=== PATIENT | male | born 1955 | race Caucasian/White ===

== ENCOUNTER → 2019-11-16 12:52 | Outpatient (CLI) | payer OTHER, SELFPAY ==
--- NOTE | ~2019-11-16 | XR_ITS ---
XR hip RT min 2V DATE: 11/16/2019 13:14 INDICATION: Kicked by a horse. Lateral right hip pain. TECHNIQUE: AP and lateral views COMPARISON: None FINDINGS: No fracture or dislocation, avascular necrosis or bone destruction. Right hip joint space is preserved. Multiple prostate calcifications. Indeterminate calcifications are noted medial to the right kidney. Levoscoliosis and degenerative change of lumbar spine. IMPRESSION: No significant right hip abnormality Reviewed, dictated and finalized at location B.
== END ==
PROVIDERS: PCP Emergency Medicine; Visit Provider Emergency Medicine
DX: S79.811A Other specified injuries of right hip, initial encounter (principal)
CPT/HCPCS: 73502

== ENCOUNTER 2019-12-19 10:27 | Emergency (ER) | payer OTHER, SELFPAY ==
[2019-12-19 10:53] VITALS: BP 103/69; PULSE 66; RESP 16; TEMP 36.4; O2SAT 98
--- NOTE | 2019-12-19 11:00 | ED.DENTAL ---
HPI - Dental/Oral General Chief complaint: Dental/Oral Stated complaint: TOOTH PAIN Time Seen by Provider: 12/19/19 11:00 Source: patient Mode of arrival: ambulatory Limitations: no limitations History of Present Illness HPI Narrative: Scott Coronado is a 64 yo male with PMH of rheumatoid arthritis, GERD ,who comes to express care with left upper dental pain in tooth 14. This is broken off and is waiting for the insurance company [employer] to call back with an oral surgeon that will take their insurance. Patient is got has multiple other teeth is been pulled or broken off, his primary care physician given amoxicillin 875 twice daily for the last time tooth is broken and he would like the same antibiotic Related Data Home Medications Medication Instructions Recorded Confirmed meloxicam 15 mg DAILY 12/19/19 12/19/19 methotrexate sodium 2.5 mg DAILY 12/19/19 12/19/19 omeprazole 20 mg DAILY 12/19/19 12/19/19 prednisone 2.5 mg DAILY 12/19/19 12/19/19 Allergies Allergy/AdvReac Type Severity Reaction Status Date / Time No Known Allergies Allergy Verified 12/19/19 10:58 Review of Systems Review of Systems: Narrative: CONSTITUTIONAL: Denies fever, chills, sweats. EYES: Denies visual changes, redness, discharge. ENT: Denies rhinorrhea, congestion, sore throat, otalgia. Multiple broken teeth with abscess tooth 14 upper left CARDIOVASCULAR: Denies chest pain, palpitations, edema. RESPIRATORY: Denies dyspnea, wheezing, cough GASTROINTESTINAL: Denies abdominal pain, nausea, vomiting, diarrhea. GENITOURINARY: Denies dysuria, hematuria, abnormal discharge SKIN: Denies rash or itching. NEUROLOGIC: Denies numbness, or focal weakness. PSYCHIATRIC: Denies anxiety or depression. [facility] Past Medical History Medical History (Updated 12/19/19 @ 11:10 by Usha Moon CNP) GERD (gastroesophageal reflux disease) Rheumatoid arthritis Family History Family History (Updated 12/19/19 @ 11:06 by Usha Moon CNP) Other Rheumatoid arthritis Social History Social History (Updated 12/19/19 @ 11:07 by Usha Moon CNP) Smoking status: Current every day smoker Alcohol intake: current Gender identity (if verbalized by the patient): Male Comments At time of signature, I agree with nursing past medical, surgical, social and family history. There is no relevant family history pertinent to the presenting complaint. Exam Narrative: Exam Narrative: GENERAL: This is a well-nourished, well-developed patient, in moderate distress. HEAD: normocephalic, atraumatic. EYES: Sclera clear/white. Vision is grossly intact. EARS: External ears normal, . Hearing grossly intact. NOSE: External nose normal without nasal discharge, nares without redness, no rhinorrhea. Tooth pain left upper left with multiple broken teeth poor dentition THROAT: Mucous membranes moist, NECK: Neck supple, CARDIOVASCULAR: Regular rate and rhythm without murmurs, gallops, or rubs. RESPIRATORY: Clear to auscultation. Breath sounds equal bilaterally. No wheezes, rales, or rhonchi. GASTROINTESTINAL: Abdomen soft, SKIN: warm, intact with no suspicious lesions or rash, good texture and turgor. NEURO: awake, alert, and oriented to person, place and time. There were no obvious focal neurologic abnormalities. Steady gait EXTREMITIES: Normal range of motion. BACK: Nontender without deformity Course Course Emergency Course: Started on amoxicillin 875 twice daily at patient request Tylenol 3 for pain Follow-up with melena to get oral surgeon referral for removal of abscessed tooth and other teeth that are fractured towards the gumline Vital Signs Vital signs: Vital Signs Temperature 97.6 F 12/19/19 10:53 Pulse Rate 66 12/19/19 10:53 Respiratory Rate 16 12/19/19 10:53 Blood Pressure 103/69 12/19/19 10:53 Pulse Oximetry 98 12/19/19 10:53 Temperature 97.6 F 12/19/19 10:53 Pulse Rate 66 12/19/19 10:53 Respiratory Rate 16 12/19/19
== END 2019-12-19 11:18 | disposition home or self-care (01) ==
PROVIDERS: Emergency Provider Nurse Practitioner; PCP Emergency Medicine
DX: K04.7 Periapical abscess without sinus (principal); F17.200 Nicotine dependence, unspecified, uncomplicated; K21.9 Gastro-esophageal reflux disease without esophagitis; M06.9 Rheumatoid arthritis, unspecified
CPT/HCPCS: 99213; G0463

== ENCOUNTER → 2020-02-09 14:03 | Outpatient (CLI) | payer OTHER, SELFPAY ==
--- NOTE | ~2020-02-09 | XR_ITS ---
XR shoulder RT min 2V DATE: 02/09/2020 14:23 INDICATION: Right shoulder pain TECHNIQUE: 4 views COMPARISON: 09/24/2016 right shoulder FINDINGS: There is right rotator cuff atrophy. There is mild degenerative change at the, clavicular and glenohumeral joints. Moderate osteopenia. No fracture, dislocation, periosteal reaction or bone destruction or any significant abnormal soft ti ssue calcification of the right shoulder is detected. IMPRESSION: Right rotator cuff atrophy Mild degenerative change at the acromioclavicular and glenohumeral joints Diffuse osteopenia Reviewed, dictated and finalized at location A.
== END ==
PROVIDERS: PCP Emergency Medicine; Visit Provider Emergency Medicine
DX: M25.511 Pain in right shoulder (principal); M62.511 Muscle wasting and atrophy, not elsewhere classified, right shoulder; M85.89 Other specified disorders of bone density and structure, multiple sites
CPT/HCPCS: 73030

== ENCOUNTER 2020-03-16 16:20 | Emergency (ER) | payer OTHER, SELFPAY ==
[2020-03-16 16:30] VITALS: BP 114/66; PULSE 66; RESP 16; TEMP 36.6; O2SAT 97
--- NOTE | 2020-03-16 16:36 | ED.SKABFB ---
HPI - Skin/Abscess/Foreign Bdy General Chief complaint: Wound/Laceration Stated complaint: Dog Bite Time Seen by Provider: 03/16/20 16:50 Source: patient and RN notes reviewed Mode of arrival: ambulatory Limitations: no limitations History of Present Illness HPI narrative: 64-year-old male presents concern for dog bite to his left forearm. Reports the dog was known to him and is up-to-date on his vaccination. Reports he is not up-to-date on his vaccinations. Reports he cleaned the wounds after he was bit. Denies any decreased strength, range of motion, sensation in his arm or hand. MD complaint: other (Dogbite) Related Data Home Medications Medication Instructions Recorded Confirmed meloxicam 15 mg DAILY 12/19/19 12/19/19 methotrexate sodium 2.5 mg DAILY 12/19/19 12/19/19 omeprazole 20 mg DAILY 12/19/19 12/19/19 alendronate mg PO 03/16/20 ergocalciferol (vitamin D2) 03/16/20 leflunomide mg 03/16/20 Allergies Allergy/AdvReac Type Severity Reaction Status Date / Time No Known Allergies Allergy Verified 12/19/19 10:58 Review of Systems Review of Systems: Narrative: CONSTITUTIONAL: Denies malaise, chills, sweats, or fever. CARDIOVASCULAR: Denies chest pain, palpitations, or edema. RESPIRATORY: Denies cough or dyspnea. SKIN: Reports dog bites to left arm MUSCULOSKELETAL: Denies muscle skeletal pain NEUROLOGIC: Denies numbness, weakness All systems reviewed & are unremarkable except as noted in HPI and below PMFSH Past Medical History Medical History (Updated 03/16/20 @ 17:14 by Coby Garza NP) GERD (gastroesophageal reflux disease) Rheumatoid arthritis Family History Family History (Updated 12/19/19 @ 11:06 by Usha Moon CNP) Other Rheumatoid arthritis Social History Social History (Updated 12/19/19 @ 11:07 by Usha Moon CNP) Smoking status: Current every day smoker Alcohol intake: current Gender identity (if verbalized by the patient): Male Comments At time of signature, agree with nursing past medical, surgical, social and family history. There is no relevant family history pertinent to the presenting complaint Exam Narrative: Exam Narrative: GENERAL: Well-appearing, well-nourished, and in no acute distress. HEAD: Normocephalic, atraumatic. EYES: PERRLA, conjunctivae clear ENT: Nares clear. Mucous membranes moist. NECK: Supple. CHEST: No respiratory distress. Speaks in full sentences. HEART: Regular rate and rhythm. Normal LUE peripheral pulse. EXTREMITIES: Left arm, hand, wrist hand and digits of hand have normal strength and sensation. 5/5 strength with digit flexion, extension. Range of motion normal. No clubbing, cyanosis, or edema noted. No tenderness. Normal digital cascade with flexion of fingers, median, ulnar and radial nerve intact. Normal sensation of each side of finger. SKIN: Warm, dry. 8 superficial puncture wounds, 7 superficial skin tears noted to the medial lateral left forearm. None gaping, none surrounded by erythema, induration, edema, no drainage NEURO: Alert and oriented x3 PSYCH: Normal mood and affect Course Course Emergency Course: Steri-Strips applied to larger skin tears and puncture wounds in a sterile fashion Patient is aware of diagnosis, understands and agrees to treatment plan. Anticipatory guidance given. Patient agrees to follow-up as directed and is aware of reasons to seek care at the emergency department. Portions of this record may have been created with voice recognition software Vital Signs Vital signs: Vital Signs Temperature 97.9 F 03/16/20 16:30 Pulse Rate 66 03/16/20 16:30 Respiratory Rate 16 03/16/20 16:30 Blood Pressure 114/66 03/16/20 16:30 Pulse Oximetry 97 03/16/20 16:30 Temperature 97.9 F 03/16/20 16:47 Pulse Rate 66 03/16/20 16:47 Respiratory Rate 16 03/16/20 16:47 Blood Pressure 114/66 03/16/20 16:47 Pulse Oximetry 97 03/16/20 16:47 Reviewed. MDM - Skin/Abscess/Foreig
[2020-03-16 16:47] VITALS: BP 114/66; PULSE 66; RESP 16; TEMP 36.6; O2SAT 97
[2020-03-16] MEDS: TETANUS,DIPHTHERIA,AC PERTUSSIS ADULT (0.5 ML) BOOSTRIX IM (17:07)
== END 2020-03-16 17:26 | disposition home or self-care (01) ==
PROVIDERS: Emergency Provider Nurse Practitioner; PCP Emergency Medicine
DX: S51.812A Laceration without foreign body of left forearm, initial encounter (principal); W54.0XXA Bitten by dog, initial encounter; S51.832A Puncture wound without foreign body of left forearm, initial encounter; Z23 Encounter for immunization; F17.200 Nicotine dependence, unspecified, uncomplicated; M06.9 Rheumatoid arthritis, unspecified; K21.9 Gastro-esophageal reflux disease without esophagitis
CPT/HCPCS: 90471; 90715; 99212; G0463

== ENCOUNTER → 2021-01-19 12:50 | Outpatient (CLI) | payer OTHER, SELFPAY ==
--- NOTE | ~2021-01-19 | XR_ITS ---
EXAMINATION: XR lumbar spine 2-3V DATE: 01/19/2021 13:06 INDICATION: Low back pain. TECHNIQUE: 3 views of lumbar spine were obtained. COMPARISON: None. FINDINGS: There is 6 degrees levocurvature of lumbar spine. There is a 10 mm anterolisthesis of L4 on L5. There is mild chronic anterior wedging of L2 vertebral body. There is severely decreased disc he ight at L4-L5 and mildly decreased disc height at L2-L3. There are chronic bilateral L4 pars defects. There is severe facet joint osteoarthritis in lower lumbar spine. IMPRESSION: 1. Chronic bilateral L4 pars defects with grade 1 anterolisthesis of L4 on L5. 2. Severe lumbar spondylosis. Reviewed, dictated and finalized at location A.
== END ==
PROVIDERS: PCP Emergency Medicine; Visit Provider Emergency Medicine
DX: M54.59 Other low back pain (principal); M43.16 Spondylolisthesis, lumbar region; M47.816 Spondylosis without myelopathy or radiculopathy, lumbar region; M53.86 Other specified dorsopathies, lumbar region
CPT/HCPCS: 72100

== ENCOUNTER 2021-04-06 12:15 | Emergency (ER) | payer OTHER, SELFPAY | END 2021-04-06 13:15 | disposition left against medical advice (07) | PROVIDERS: Emergency Provider Internal Medicine Hematology & Oncology; PCP Emergency Medicine | DX: Z53.21 Procedure and treatment not carried out due to patient leaving prior to being seen by health care provider (principal) | CPT/HCPCS: 99199 ==

== ENCOUNTER 2021-04-06 13:48 | Emergency (ER) | payer OTHER, SELFPAY ==
[2021-04-06 14:04] VITALS: BP 128/86; PULSE 87; RESP 16; TEMP 36.3; O2SAT 97
--- NOTE | 2021-04-06 14:36 | ED.BACK ---
HPI - Back Pain/Injury General Chief Complaint: Extremity Injury, Upper Stated Complaint: rt shoulder pain Time Seen by Provider: 04/06/21 14:23 Source: patient and RN notes reviewed Mode of arrival: ambulatory Limitations: no limitations History of Present Illness HPI Narrative: Patient presents today complaining of right upper back pain x8 days. 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 Currently rates pain 10/10. He was seen today by his PCP who sent him to us to be evaluated for possible punctured lung or pneumonia. . Patient has not been ill, has no cough, no fever, no short of breath, has had no traumatic injury or fall. Pain increases with movement and deep breaths. He believes he just needs a muscle relaxer. 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 MD elicited complaint: back pain Related Data Home Medications Medication Instructions Recorded Confirmed meloxicam 15 mg PO DAILY 12/19/19 04/06/21 methotrexate sodium 2.5 mg PO DAILY 12/19/19 04/06/21 omeprazole 20 mg PO DAILY 12/19/19 04/06/21 alendronate 70 mg PO DAILY 03/16/20 04/06/21 ergocalciferol (vitamin D2) 1,250 mcg PO DAILY 03/16/20 04/06/21 leflunomide 10 mg PO DAILY 03/16/20 04/06/21 prednisone 2.5 mg PO DAILY 03/16/20 04/06/21 clotrimazole 1 applic TOPICAL DAILY 04/06/21 04/06/21 folic acid 1 mg PO DAILY 04/06/21 04/06/21 Allergies Allergy/AdvReac Type Severity Reaction Status Date / Time No Known Allergies Allergy Verified 04/06/21 14:34 Review of Systems Review of Systems: CONSTITUTIONAL: Denies body aches, fever, chills, or sweats. EYES: Denies visual changes, redness, or discharge. ENT: Denies rhinorrhea, congestion, sore throat, or otalgia. CARDIOVASCULAR: Denies chest pain, palpitations, or edema. RESPIRATORY: Denies cough or dyspnea. GASTROINTESTINAL: Denies abdominal pain, nausea, vomiting, or diarrhea. GENITOURINARY: Denies dysuria or hematuria. SKIN: Denies rash, itching, or wounds. MUSCULOSKELETAL: Denies joint pain, or myalgia.+ Back pain NEUROLOGIC: Denies headache, numbness, tingling, or weakness. PSYCH: Denies depression or anxiety. [facility] Past Medical History Medical History GERD (gastroesophageal reflux disease) Rheumatoid arthritis Family History Family History Other Rheumatoid arthritis Social History Social History Smoking status: Current every day smoker Alcohol intake: current Gender identity (if verbalized by the patient): Male Comments At time of signature, I have reviewed and agree with nursing past medical, surgical, social and family history unless otherwise noted. Please see nursing chart for further information. There is no relevant family history pertinent to the presenting complaint Exam Narrative: GENERAL: Well-appearing, well-nourished, and in no acute distress. HEAD: Normocephalic, atraumatic. EYES: EOMI. No redness or drainage. Conjunctivae normal. ENT: Mucous membranes pink and moist. NECK: Normal AROM. CHEST: No respiratory distress. MUSCULOSKELETAL: No bony tenderness of the spine. Right upper thoracic paraspinal muscle tenderness, just medial to the scapula. Pain increases with movement of the right shoulder and arm. Distal sensation intact. Capillary refill normal. Radial pulse normal. Normal strength in the right arm and shoulder. EXTREMITIES: Normal range of motion. No edema. SKIN: Warm, dry, no rash. Capillary refill normal. Normal skin turgor. NEURO: No focal deficits. Alert and oriented x3. Gait steady. PSYCH: Normal affect. No signs of depression or anxiety. Course Vital Signs Vital signs: Vital Signs Temperature 97.3 F L 04/06/21 14:04 Pulse Rate 87 04/06/21 14:04 Respiratory Rate 16 04/06/21 14:04 Blood P
== END 2021-04-06 14:45 | disposition home or self-care (01) ==
PROVIDERS: Emergency Provider Nurse Practitioner; PCP Emergency Medicine
DX: S29.012A Strain of muscle and tendon of back wall of thorax, initial encounter (principal); W55.19XA Other contact with horse, initial encounter; K21.9 Gastro-esophageal reflux disease without esophagitis; M06.9 Rheumatoid arthritis, unspecified
CPT/HCPCS: 99213; G0463

== ENCOUNTER 2021-08-10 11:14 | Emergency (ER) | payer OTHER, SELFPAY ==
--- NOTE | 2021-08-10 11:15 | ED.UPPEXIN ---
HPI - Extremity Injury (Upper) General Chief Complaint: Extremity Problem,Nontraumatic Stated Complaint: left 3rd finger pain Time Seen by Provider: 08/10/21 11:15 Source: patient Mode of arrival: ambulatory Limitations: no limitations History of Present Illness HPI narrative: Mr. Burton is a 66-year-old male patient presenting to the clinic today with complaints of left fourth finger pain 2 to 3 days. 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 He has a history of rheumatoid arthritis and is on prednisone and methotrexate for this. Thinks he may have been bitten by a insect. Related Data Home Medications Medication Instructions Recorded Confirmed meloxicam 15 mg PO DAILY 12/19/19 08/10/21 methotrexate sodium 2.5 mg PO DAILY 12/19/19 08/10/21 omeprazole 20 mg PO DAILY 12/19/19 08/10/21 alendronate 70 mg PO DAILY 03/16/20 08/10/21 ergocalciferol (vitamin D2) 1,250 mcg PO DAILY 03/16/20 08/10/21 leflunomide 10 mg PO DAILY 03/16/20 08/10/21 prednisone 2.5 mg PO DAILY 03/16/20 08/10/21 folic acid 1 mg PO DAILY 04/06/21 08/10/21 Allergies Allergy/AdvReac Type Severity Reaction Status Date / Time No Known Allergies Allergy Verified 08/10/21 11:32 Review of Systems Review of Systems: Pertinent positives per HPI. Patient denies any fever, chills, rash, headache, visual changes, dizziness, cough, runny nose, sore throat, shortness of breath, chest pain, palpitations, nausea, vomiting, diarrhea, constipation, abdominal pain, or any urinary issues. [facility] Past Medical History Medical History GERD (gastroesophageal reflux disease) Rheumatoid arthritis Family History Family History Other Rheumatoid arthritis Social History Social History Smoking status: Current every day smoker Alcohol intake: current Gender identity (if verbalized by the patient): Male Comments At the time of my signature, I reviewed and agree with the nursing past medical, surgical, social, and family history. There is no relevant family history pertinent to the patient complaint. Exam Narrative: General: Well-developed, well nourished, in no apparent distress Head: Normocephalic, atraumatic. Cardio: Regular rate and rhythm, s1 and s2 normal, no murmur appreciated. Resp: Clear to auscultation bilaterally, no rhonchi, rales, wheezing or rubs. Musculoskeletal: [place]-neck deformity of fingers, swelling and mild redness to the left fourth finger joint with a fluctuant knot over the medial joint, tender to palpation over the MIP joint pain is radiating down his lateral hand, limited range of motion of the right fourth finger MIP joint, peripheral pulse strong, , no cyanosis, normal gait and station Course Course Emergency Course: Portions of this record may have been created with voice recognition software. Level of Care: Express Care Visit Vital Signs Vital signs: Vital signs reviewed Procedures Abscess I/D hand: Date of Incision: 08/10/21 Side (if applicable): left I&D Results: Blood and Other (Cottage cheese like jacobs substance) Abcess I&D Additional Comments: Verbal consent obtained for incision and drainage. Risk and benefits explained and patient voiced understanding. Area was cleansed with technic care. An 18-gauge needle was then used to create a small hole into the cyst sac and jacobs cottage cheese appearing bloody exudate expressed from cavity. Wound culture obtained and sent to lab. Patient tolerated procedure well. MDM - Extremity Injury (Upper) MDM Narrative Medical decision making narrative: At the time of visit patient is resting comfortably on the exam table. Verbal consent for incision and drainage of t
== END 2021-08-10 11:44 | disposition home or self-care (01) ==
PROVIDERS: Emergency Provider Nurse Practitioner Family; PCP Emergency Medicine
DX: L72.9 Follicular cyst of the skin and subcutaneous tissue, unspecified (principal); K21.9 Gastro-esophageal reflux disease without esophagitis; M06.9 Rheumatoid arthritis, unspecified; F17.200 Nicotine dependence, unspecified, uncomplicated
CPT/HCPCS: 10160; 87070; 87075; 87205; 99213; G0463

== ENCOUNTER 2021-12-21 12:07 | Emergency (ER) | payer OTHER, SELFPAY ==
[2021-12-21 12:11] VITALS: BP 115/68; PULSE 63; RESP 18; TEMP 36.9; O2SAT 98
--- NOTE | 2021-12-21 12:17 | PC.NURSE ---
EDP at bedside to assess pt.
--- NOTE | 2021-12-21 12:36 | ED.HA ---
HPI - Headache General Chief Complaint: Headache Stated Complaint: body aches History of Present Illness HPI Narrative: 66-year-old male presents the emergency room from his PCPs office. Patient is complaining of generalized headache and body aches that began this morning. 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 States his PCP sent him here for a COVID swab. Has taken his regular meloxicam and steroids and is currently not experiencing any discomfort. No other complaints Related Data Home Medications Medication Instructions Recorded Confirmed meloxicam 15 mg tablet 15 mg PO DAILY 12/19/19 08/10/21 methotrexate sodium 2.5 mg tablet 2.5 mg PO DAILY 12/19/19 08/10/21 omeprazole 20 mg capsule,delayed 20 mg PO DAILY 12/19/19 08/10/21 release alendronate 70 mg tablet 70 mg PO DAILY 03/16/20 08/10/21 ergocalciferol (vitamin D2) 1,250 1,250 mcg PO DAILY 03/16/20 08/10/21 mcg (50,000 unit) capsule leflunomide 10 mg tablet 10 mg PO DAILY 03/16/20 08/10/21 prednisone 2.5 mg tablet 2.5 mg PO DAILY 03/16/20 08/10/21 folic acid 1 mg tablet 1 mg PO DAILY 04/06/21 08/10/21 Allergies Allergy/AdvReac Type Severity Reaction Status Date / Time No Known Allergies Allergy Verified 12/21/21 12:24 Review of Systems Review of Systems: CONSTITUTIONAL: Denies fever, chills, or sweats. EYES: Denies visual changes, redness, or discharge. ENT: Denies rhinorrhea, congestion, sore throat, or otalgia. CARDIOVASCULAR: Denies chest pain, palpitations, or edema. RESPIRATORY: Denies cough or dyspnea. GASTROINTESTINAL: Denies abdominal pain, nausea, vomiting, or diarrhea. GENITOURINARY: Denies dysuria or hematuria. SKIN: Denies rash or itching. MUSCULOSKELETAL: Reports body aches NEUROLOGIC: Reports headache PSYCHIATRIC: Denies anxiety or depression. [facility] Past Medical History Medical History GERD (gastroesophageal reflux disease) Rheumatoid arthritis Family History Family History Other Rheumatoid arthritis Social History Social History Smoking status: Current every day smoker Alcohol intake: current Gender identity (if verbalized by the patient): Male Exam Narrative: GENERAL: Well-appearing, well-nourished, no physical limitations, and in no acute distress. HEAD: Normocephalic, atraumatic. EYES: Conjunctivae normal, PERRLA and EOMI. ENT: External nose normal, Nares clear, no rhinorrhea or epistaxis. Mucous membranes moist. Oropharynx without tonsillar hypertrophy exudate or other lesions. External ears normal, bilateral TMs normal bilaterally NECK: Supple. No meningeal signs. No adenopathy or masses. CHEST: Clear to auscultation. No respiratory distress. No wheezes rales or rhonchi. No tenderness. HEART: Regular rate and rhythm. No murmur heard. Normal peripheral pulses. EXTREMITIES: Normal range of motion. No edema. No clubbing or cyanosis SKIN: Warm, dry, no rash. No noted wounds NEURO: No focal deficits. Alert and oriented x3. MAEW. CN's II-XI intact bilaterally, normal gait PSYCH: Cooperative. Normal mood and affect. Course Vital Signs Vital signs: Vital Signs Temperature 36.9 C 12/21/21 12:11 Pulse Rate 63 12/21/21 12:11 Respiratory Rate 18 12/21/21 12:11 Blood Pressure 115/68 12/21/21 12:11 Pulse Oximetry 98 12/21/21 12:11 Oxygen Delivery Room Air 12/21/21 12:11 Temperature 36.9 C 12/21/21 12:11 Pulse Rate 63 12/21/21 12:11 Respiratory Rate 18 12/21/21 12:11 Blood Pressure 115/68 12/21/21 12:11 Pulse Oximetry 98 12/21/21 12:11 Oxygen Delivery Room Air 12/21/21 12:11 MDM - Headache Lab Data Labs: Lab Results 12/21/21 Range/Units 12:26 SARS-CoV-2 RNA (RT-PCR) Negative Discharge Scottie
[2021-12-21] MEDS: ACETAMINOPHEN 500 MG TABLET 1000 MG PO (12:41)
[2021-12-21 13:11] LABS: SARS-CoV-2 RNA PCR Negative
== END 2021-12-21 13:41 | disposition home or self-care (01) ==
PROVIDERS: Emergency Provider Nurse Practitioner Family; PCP Emergency Medicine
DX: R51.9 Headache, unspecified (principal); K21.9 Gastro-esophageal reflux disease without esophagitis; M06.9 Rheumatoid arthritis, unspecified; F17.200 Nicotine dependence, unspecified, uncomplicated; Z20.822 Contact with and (suspected) exposure to COVID-19; Z79.1 Long term (current) use of non-steroidal anti-inflammatories (NSAID); Z79.52 Long term (current) use of systemic steroids
CPT/HCPCS: 99283; A9270; C9803; U0003; U0005

== ENCOUNTER 2022-03-11 14:56 | Outpatient (CLI) | payer OTHER, SELFPAY ==
[2022-03-11 16:26] LABS: Hematocrit 40.5 % (42.0-52.0); Hemoglobin 13.7 g/dL (14.0-18.0); Mean Corpuscular HGB Conc 33.8 g/dl (32-36); Mean Corpuscular Hemoglobin 31.5 pg (26-34); Mean Corpuscular Volume 93.1 fl (80-100); Mean Platelet Volume 9.8 fl (7.4-10.4); Platelet Count Result 338 k/mm3 (150-375); Red Blood Count 4.35 M/mm3 (4.6-6.20); Red Cell Distribution Width 13.8 % (11.5-14.5); White Blood Count 7.7 K/mm3 (4.5-10.0)
[2022-03-11 16:27] LABS: Appearance Urine Clear (Clear); Bilirubin Urine Negative (Negative); Blood Urine Negative (Negative); Color Urine Yellow (Yellow); Glucose Urine UA Negative (Negative); Ketones Urine Negative (Negative); Leukocyte Esterase Ur Negative LEU/UL (NEGATIVE); Nitrate Urine Negative (Negative); Protein Urine Negative (Negative); Urobilinogen Urine 0.2 mg/dL (<2.0)
[2022-03-11 16:35] LABS: Add Urine Microscopic? NO
[2022-03-11 16:53] LABS: Creatinine Urine 194.6 mg/dL
[2022-03-11 16:58] LABS: Free T4 Free Thyroxine 0.87 ng/mL (0.78-2.19); Vitamin D 25 Hydroxy 29.1 ng/mL
[2022-03-11 17:25] LABS: MALB Creatinine Ratio < 3.1 mg/g (0-30); Microalbumin Urine Random < 6.0 mg/L (0-16.7)
[2022-03-11 18:09] LABS: Alanine Aminotransferase 30 U/L (6-50); Albumin Level 3.7 g/dL (3.5-5.1); Alkaline Phosphatase 84 U/L (38-126); Anion Gap 7 mmol/L (8-16); Aspartate Amino Transferase 40 U/L (17-59); Bilirubin,Total 0.3 mg/dL (0.2-1.3); Blood Urea Nitrogen 14 mg/dL (9-20); Calcium 8.3 mg/dL (8.4-10.2); Carbon Dioxide 29 mmol/L (22-30); Chloride 103 mmol/L (98-107); Cholesterol 176 mg/dL (0-200); Estimated Glomerular Filt Rate > 60; Glucose 122 mg/dL (65-110); HDL Direct 54 mg/dL; Sodium 139 mmol/L (137-145); Triglycerides 84 mg/dL (<150)
[2022-03-11 18:17] LABS: Hemoglobin A1C 6.1 % (<5.7)
[2022-03-11 18:20] LABS: LDL Cholesterol Direct 82 mg/dL
[2022-03-11 18:40] LABS: Prostate Specific Antigen 2.7 ng/mL (< OR = 4.0)
== END 2022-03-11 14:57 | disposition home or self-care (01) ==
LOC: ANHLAB 14:58
PROVIDERS: PCP Emergency Medicine; Visit Provider Emergency Medicine
DX: M06.9 Rheumatoid arthritis, unspecified (principal); M85.88 Other specified disorders of bone density and structure, other site; J43.9 Emphysema, unspecified
CPT/HCPCS: 36415; 80053; 80061; 81003; 82043; 82306; 83036; 84153; 84439; 84443; 85027; G0103

== ENCOUNTER 2022-03-27 14:36 | Outpatient (CLI) | payer OTHER, SELFPAY ==
--- NOTE | ~2022-03-27 | DEXA_ITS ---
Bone Density Report Name: BUTCH CASTELAN Age: 66 Sex: Male Ethnicity: White Date of : 1955 Indication: osteoporosis; monitoring treatment; height loss; history of glucocorticoids; asthma or emphysema; rheumatoid arthritis; Referring Provider: TANGELA BERNARD Study: Bone densitometry was performed. Exam Date: March 27, 2022 Accession number: [id number] Bone Density: Region BMD T-score Z-score Classification AP Spine(L1-L4) 0.849 -2.2 -1.4 Osteopenia Femoral Neck (Left) 0.693 -1.7 -0.7 Osteopenia Total Hip (Left) 0.872 -1.1 -0.5 Osteopenia Femoral Neck (Right) 0.660 -2.0 -0.9 Osteopenia Total Hip (Right) 0.874 -1.1 -0.5 Osteopenia Total Hip Mean 0.873 -1.1 -0.5 Osteopenia World Health Organization criteria for BMD impression classify patients as: Normal (T-score at or above -1.0), Osteopenia (T-score between -1.0 and -2.5), or Osteoporosis (T-score at or below -2.5). 10-year Fracture Risk: FRAX not reported because: Treated for osteoporosis Previous Exams: Region Exam Age BMD T-score BMD Change BMD Change Date g/cm2 vs Baseline vs Previous AP Spine (L1-L4) 03/27/2022 66 0.849 -2.2 0.048 (6.0%)# 0.048 (6.0%)# 09/29/2015 60 0.801 -2.6 Total Hip(Left) 03/27/2022 66 0.872 -1.1 -0.065 (-6.9%) -0.031 (-3.5%) 05/26/2018 62 0.904 -0.9 -0.033 (-3.6%) -0.033 (-3.6%) 09/29/2015 60 0.937 -0.6 Total Hip(Right) 03/27/2022 66 0.874 -1.1 -0.131 (-13.1% -0.079 (-8.3%) 05/26/2018 62 0.953 -0.5 -0.052 (-5.2%) -0.052 (-5.2%) 09/29/2015 60 1.005 -0.2 *Denotes significance at 95% confidence level, LSC for AP Spine = 0.022 g/cm2, LSC for Total Hip = 0.027 g/cm2 # Denotes dissimilar scan types or analysis methods Clinical Information Provided by Patient: Smokes Has taken Glucocorticoids Has rheumatoid arthritis Is being treated for osteoporosis Has used the following medications: Fosamax (i.e. alendronate) Has the following medical conditions: Asthma or Emphysema Patient maximum height was 67 Drinks caffeinated beverages Impression: The patient has low bone mass, based on the Total Spine T-score. The patient has risk factors, including: smoking, history of glucocorticoid therapy. The BMD for the Total Hip(Left) decreased, changing by -3.5% since the last DXA exam. The BMD for the Total Hip(Right) decreased, changing by -8.3% since the last DXA exam. Discussion: SIGNIFICANT BONE LOSS OBSERVED. Adherence to therap
== END 2022-03-27 14:37 | disposition home or self-care (01) ==
PROVIDERS: PCP Emergency Medicine; Visit Provider Emergency Medicine
DX: M81.0 Age-related osteoporosis without current pathological fracture (principal); M85.88 Other specified disorders of bone density and structure, other site; M85.852 Other specified disorders of bone density and structure, left thigh; M85.851 Other specified disorders of bone density and structure, right thigh
CPT/HCPCS: 77080

== ENCOUNTER 2022-04-03 14:56 | Outpatient (CLI) | payer OTHER, SELFPAY ==
--- NOTE | ~2022-04-03 | CT_ITS ---
EXAMINATION: CT lung screening DATE: 04/03/2022 15:13 INDICATION: Personal history nicotine dependence, current smoker with 30 pack year history TECHNIQUE: Computed tomography (CT) of the chest was performed without intravenous contrast. The dose -length product (DLP) was 71.34 mGy-cm. Automated exposure control and iterative reconstruction techn ique were employed. COMPARISON: 11/19/2017 FINDINGS: There is mild emphysema. Previously described thin-walled cavitary nodules of the right upp er lobe have resolved. There is a new 9 mm x 6 mm thin-walled cavitary nodule of the left upper lobe with a possible 3 mm peripheral solid nodule. There is a new 1.8 x 0.9 cm subpleural nodule in the ri ght upper lobe on image 70. There is a new 1.8 x 0.9 cm subpleural nodule in the left upper lobe on i mage 79. There is a 1.8 x 0.8 cm subpleural nodule in the medial aspect of the right lower lobe on im age 67. The previously described 5 mm nodule in the right upper lobe demonstrates slight increase in size measuring 6 mm. Clustered tree-in-bud nodules at the inferolateral aspect of the right lower lob e are likely infectious/inflammatory. There is a small right pleural effusion. The heart size is norm al. There is an old healed fracture of the left clavicle. There is severe thoracic spondylosis. A lym ph node of the left axilla demonstrates areas of eccentric thickening. IMPRESSION: 1. Lung-RADS category 4B: Very suspicious. Findings for which additional diagnostic testing and/or ti ssue sampling is recommended. Reviewed, dictated and finalized at location F. AL LATHE MACHINIST IMPRESSION: 1. Lung-RADS category 4B: Very suspicious. Findings for which additional diagno stic testing and/or tissue sampling is recommended.
== END 2022-04-03 14:57 | disposition home or self-care (01) ==
PROVIDERS: PCP Emergency Medicine; Visit Provider Emergency Medicine
DX: Z12.2 Encounter for screening for malignant neoplasm of respiratory organs (principal); Z87.891 Personal history of nicotine dependence; R91.8 Other nonspecific abnormal finding of lung field
CPT/HCPCS: 71271

== ENCOUNTER 2022-12-19 09:53 | Outpatient (CLI) | payer OTHER, SELFPAY ==
[2022-12-19 11:51] LABS: Appearance Urine Clear (Clear); Bilirubin Urine Negative (Negative); Blood Urine Negative (Negative); Color Urine Yellow (Yellow); Glucose Urine UA Negative (Negative); Ketones Urine Negative (Negative); Leukocyte Esterase Ur Negative LEU/UL (NEGATIVE); Nitrate Urine Negative (Negative); Protein Urine Negative (Negative); Urobilinogen Urine 0.2 mg/dL (<2.0); pH Urine 5.5 (5.0-9.0)
[2022-12-19 11:56] LABS: Add Urine Microscopic? NO
[2022-12-19 12:07] LABS: Hematocrit 41.9 % (42.0-52.0); Hemoglobin 13.5 g/dL (14.0-18.0); Mean Corpuscular HGB Conc 32.2 g/dl (32-36); Mean Corpuscular Hemoglobin 30.4 pg (26-34); Mean Corpuscular Volume 94.4 fl (80-100); Mean Platelet Volume 10.2 fl (7.4-10.4); Platelet Count Result 329 k/mm3 (150-375); Red Blood Count 4.44 M/mm3 (4.6-6.20); Red Cell Distribution Width 13.5 % (11.5-14.5); White Blood Count 9.9 K/mm3 (4.5-10.0)
[2022-12-19 12:17] LABS: Hemoglobin A1C 5.7 % (<5.7)
[2022-12-19 12:18] LABS: Creatinine Urine 48.8 mg/dL
[2022-12-19 12:20] LABS: Alanine Aminotransferase 24 U/L (6-50); Albumin Level 3.8 g/dL (3.5-5.1); Alkaline Phosphatase 95 U/L (38-126); Anion Gap 7 mmol/L (8-16); Aspartate Amino Transferase 32 U/L (17-59); Bilirubin,Total 0.4 mg/dL (0.2-1.3); Blood Urea Nitrogen 17 mg/dL (9-20); Calcium 8.7 mg/dL (8.4-10.2); Carbon Dioxide 26 mmol/L (22-30); Chloride 104 mmol/L (98-107); Cholesterol 188 mg/dL (0-200); Estimated Glomerular Filt Rate > 60; Glucose 123 mg/dL (65-110); HDL Direct 53 mg/dL; Potassium 3.8 mmol/L (3.4-5.0); Sodium 137 mmol/L (137-145); Triglycerides 102 mg/dL (<150)
[2022-12-19 12:36] LABS: LDL Cholesterol Direct 106 mg/dL
[2022-12-19 12:53] LABS: Prostate Specific Antigen 3.5 ng/mL (< OR = 4.0)
[2022-12-19 13:10] LABS: MALB Creatinine Ratio < 12.3 mg/g (0-30); Microalbumin Urine Random < 6.0 mg/L (0-16.7)
[2022-12-19 14:14] LABS: Iron 86 ug/dL (49-181)
[2022-12-19 14:23] LABS: Percent Iron Saturation 22 % (20-50)
[2022-12-19 14:47] LABS: Vitamin D 25 Hydroxy 67.7 ng/mL
== END 2022-12-19 09:54 | disposition home or self-care (01) ==
PROVIDERS: PCP Emergency Medicine; Visit Provider Emergency Medicine
DX: E55.9 Vitamin D deficiency, unspecified (principal); M06.9 Rheumatoid arthritis, unspecified; J43.9 Emphysema, unspecified; D64.9 Anemia, unspecified; M54.50 Low back pain, unspecified; E11.9 Type 2 diabetes mellitus without complications; K21.9 Gastro-esophageal reflux disease without esophagitis; M19.011 Primary osteoarthritis, right shoulder
CPT/HCPCS: 36415; 80053; 80061; 81003; 82043; 82306; 83036; 83540; 83550; 84153; 84439; 84443; 85027

== ENCOUNTER 2022-12-21 11:38 | Outpatient (CLI) | payer OTHER, SELFPAY ==
[2022-12-21 14:29] LABS: IFOB Positive Control Positive; Immunochemical Fecal Occult Bl Positive (N)
== END 2022-12-21 11:39 | disposition home or self-care (01) ==
PROVIDERS: PCP Emergency Medicine; Visit Provider Emergency Medicine
DX: M06.9 Rheumatoid arthritis, unspecified (principal); J43.9 Emphysema, unspecified; M19.011 Primary osteoarthritis, right shoulder
CPT/HCPCS: 82274

== ENCOUNTER 2023-11-12 12:08 | Outpatient (CLI) | payer MEDICARE, SELFPAY ==
--- NOTE | ~2023-11-12 | CT_ITS ---
EXAMINATION:CT lung screening DATE: 11/12/2023 12:33 INDICATION: Personal history of nicotine dependence. Current smoker with 30 pack year history. TECHNIQUE: Computed tomography (CT) of the chest was performed without intravenous contrast. Automate d exposure control and iterative reconstruction technique were employed. The dose-length product (DLP ) was 69.19 mGy-cm. COMPARISON: Chest CT 04/03/2022, 11/19/2017 FINDINGS: There is mild emphysema. There is a stable 15 mm nodule in left upper lobe. There is a stab le 16 mm nodule in right upper lobe. There is mild scarring bilaterally. There is a stable 6 mm nodul e in right upper lobe. There is chronic right-sided pleural thickening with adjacent rounded atelecta sis in right lower lobe. No pleural effusion. The heart size is normal. No pericardial effusion. Ther e are changes of cholecystectomy. There is an old healed fracture of left clavicle. There are old hea led left rib fractures. There is severe thoracic spondylosis. IMPRESSION: 1. Lung-RADS category 2: Benign appearance or behavior. Continue annual screening with noncontrast lo w-dose chest CT in 12 months. Reviewed, dictated and finalized at location A. IMPRESSION: 1. Lung-RADS category 2: Benign appearance or behavior. Continue annual screeni ng with noncontrast low-dose chest CT in 12 months.
== END 2023-11-12 12:09 | disposition home or self-care (01) ==
LOC: ANHIMG 12:12
PROVIDERS: PCP Emergency Medicine; Visit Provider Emergency Medicine
DX: Z12.2 Encounter for screening for malignant neoplasm of respiratory organs (principal); Z87.891 Personal history of nicotine dependence
CPT/HCPCS: 71271

== ENCOUNTER 2024-05-24 14:28 | Emergency (ER) | payer MEDICARE, SELFPAY ==
--- NOTE | ~2024-05-24 | CT_ITS ---
CLINICAL INDICATION: Right-sided flank pain with hematuria COMPARISON: None. TECHNIQUE: Multiple contiguous axial images of the abdomen and pelvis were performed without the admi nistration of intravenous contrast The dose-length product (DLP) was 184.89 mGy-cm. Automated exposure control and iterative reconstruction technique were employed. FINDINGS/OBSERVATIONS: Visualized lower thorax: The bilateral lung bases are clear. The heart is of normal size, without pericardial effusion. Liver: The liver demonstrates homogeneous attenuation and is not enlarged measuring 16 cm in longitudinal di mension. Gallbladder and biliary system: The gallbladder is decompressed and otherwise unremarkable. Pancreas: Limited evaluation of the pancreas secondary to the lack of intravenous contrast. Spleen: The spleen demonstrates homogeneous attenuation and is not enlarged measuring 6 cm in longitudinal di mension. Kidneys: The bilateral kidneys are unremarkable, without hydronephrosis or renal calculi. Adrenal glands: Unremarkable. Gastrointestinal tract: Fecal stasis within the colon. Appendix: The appendix is surgically absent. Vasculature: Calcified atherosclerotic disease. Lymph nodes: Limited evaluation without intravenous contrast. Pelvic structures: The bladder is distended, and otherwise unremarkable. Bulky calcifications are identified within the prostate gland which is enlarged demonstrating mass ef fect on the base of the bladder. Body wall and musculoskeletal: Grade 1 anterolisthesis of L4 onto L5 is present. Degenerative disease is also identified at this lev el with endplate changes and vacuum phenomena. IMPRESSION: No acute intra-abdominal process, as detailed above. Reviewed, dictated and finalized at location A. VISION NEWS PHOTOGRAPHER
[2024-05-24 14:39] VITALS: BP 134/77; PULSE 68; RESP 20; TEMP 36.5; O2SAT 99
--- OUTSIDE RECORDS SUMMARY | 2024-05-24 14:43 | XMS_ITS | Clinical Summary ---
Author Organization [facility] Physician Office Building [address] [place] [id number] Care Team Providers Care Snaker Name Role Phone Jl Jordan MD Primary Care Provider [phone] Allergies No known active allergies Medications alendronate (FOSAMAX) 70 mg tablet 04/08/2018 Active naproxen (NAPROSYN) 500 mg tablet 04/08/2018 Active omeprazole (PriLOSEC) 20 mg capsule 04/08/2018 Active triamcinolone (KENALOG) 0.1 % cream 04/08/2018 Active folic acid (FOLVITE) 1 mg tablet Take 1 tablet (1 mg total) by mouth daily . 30 tablet 5 06/18/2018 Active predniSONE (DELTASONE) 5 mg tablet Take 1 tablet (5 mg total) by mouth daily . 30 tablet 2 06/18/2018 Active Active Problems Problem Noted Date Diagnosed Date BMI 20.0-20.9, adult 06/18/2018 Medical History Medical History Date Comments Osteoarthritis Osteoporosis Hyperlipidemia Family History Medical History Relation Name Comments Arthritis Mother Relation Name Status Comments Mother Son Alive Social History Tobacco Use Types Packs/Day Years Used Date Smoking Tobacco: Every Day Cigarettes 1 40 Smokeless Tobacco: Former Quit: 04/14/1989 Alcohol Use Standard Drinks/Week Comments No 0 (1 standard drink = 0.6 oz pur e alcohol) Personal Safety Answer Date Recorded Getting School Help Needed Not on file 06/28 Sex and Gender Information Value Date Recorded Sex Assigned at Not on file Legal Sex Male 8:50 AM CDT Gender Identity Not on file Sexual Orientation Not on file 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 Not on file Not on file Obstetrics History Last Filed Vital Signs Vital Sign Reading Time Taken Comments Blood Pressure 124/80 06/18/2018 8:53 AM CATEGORY MANAGER Pulse 92 06/18/2018 8:53 AM CATEGORY MANAGER Temperature 36.2 C (97.1 F) 06/18/2018 8:53 AM CATEGORY MANAGER Respiratory Rate 18 06/18/2018 8:53 AM CATEGORY MANAGER Oxygen Saturation 96% 06/18/2018 8:53 AM CATEGORY MANAGER Inhaled Oxygen Concentration - - Weight 59 kg (130 lb) 06/18/2018 8:53 AM CATEGORY MANAGER Height 170.2 cm (5' 7 ) 06/18/2018 8:53 AM CATEGORY MANAGER Body Mass Index 20.36 06/18/2018 8:53 AM CATEGORY MANAGER Plan of Treatment Not on file Insurance [employer] Care Teams Snaker Relationship Specialty Start Date End Date Jl Jordan MD PCP - General Emergency Medicine 09/22/17
--- OUTSIDE RECORDS SUMMARY | 2024-05-24 14:43 | XMS_ITS | Referral Summary ---
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 Not on file Not on file Last Filed Vital Signs Vital Sign Reading Time Taken Comments Blood Pressure 124/80 06/18/2018 8:53 AM PET SITTING Pulse 92 06/18/2018 8:53 AM PET SITTING Temperature 36.2 C (97.1 F) 06/18/2018 8:53 AM PET SITTING Respiratory Rate 18 06/18/2018 8:53 AM PET SITTING Oxygen Saturation 96% 06/18/2018 8:53 AM PET SITTING Inhaled Oxygen Concentration - - Weight 59 kg (130 lb) 06/18/2018 8:53 AM PET SITTING Height 170.2 cm (5' 7 ) 06/18/2018 8:53 AM PET SITTING Body Mass Index 20.36 06/18/2018 8:53 AM PET SITTING Plan of Treatment Not on file Insurance IDPA [facility] Care Teams Rod Tape Operator Relationship Specialty Start Date End Date Jl Jordan MD PCP - General Emergency Medicine 09/22/17
--- OUTSIDE RECORDS SUMMARY | 2024-05-24 14:43 | XMS_ITS | Encounter Summary ---
Author Organization [facility] Health Address [address] [place] [address] Care Team Providers Care Roller Skate Repairer Name Role Phone Jl Jordan MD Primary Care Provider [phone] Real Montalvo MD Unavailable [phone] Hamilton Quintanilla MD Unavailable Encounter Details Date Type Department Care Team (Late st Contact Info) Description 04/25/2022 Telephone [facility] Pulmonary, Critical Care and Sleep Medicine [address] [facility], [place] [id number] Mustapha Easton MD [address] [facility] 2L DIV OF PULMONARY/[place] [address] Social History Tobacco Use Types Packs/Day Years Used Date Smoking Tobacco: Every Day Cigarettes 1 25 Smokeless Tobacco: Never Comments:TRIES TO SMOKE LESS OCCASIONALLY Alcohol Use Standard Drinks/Week Comments Yes 0 (1 standard drink = 0.6 oz pur e alcohol) OCCASIONALLY AUDIT-C Answer Date Recorded Q1: How often do you have a drink containing alc ohol? Never 10/05/2019 Average Number of Drinks Not on file 020 Q3: How often do you have si x or more drinks on one occasion? Less than monthly 10/05/2019 PHQ-2 Answer Date Recorded PHQ2 TOTAL SCORE 0 2021 Sex and Gender Information Value Date Recorded Sex Assigned at Not on file Gender Identity Not on file Sexual Orientation Not on file documented as of this encounter Miscellaneous Notes * Telephone Encounter - Hiral Zendejas - 04/25/2022 11:39 AM CST Current Provider name: Dr. Mustapha Easton Reason for call: Mr. Scott Burton called in RE: recent xrays/scans done by his PCP, Dr. Jl Jordan about two weeks ago. Dr. Jordan saw lung nodules and perhaps wants him to do a biopsy. He doesn't want biopsy, He wants Dr. Easton to review the scans. I advised him to reach out to his PCP to have themsent over for review since they may have to be on discs. They were done at [place], [place] [phone]. He scheduled an appt w/ Dr. Easton, 08/16/2022, his first available. Based on what Dr. Easton sees on the recent scans, Mr. Burton stated Dr. Easton may want to see him SOONER. If Mr. Burton needs new scans ordered by Dr. Easton, please advise patient and call. Have Dr. Easton call. Thanks. Patient Call Back number: [phone] OR ACCOUNT MANAGER documented in this encounter Plan of Treatment Not on file documented as of this encounter Visit Diagnoses Not on filedocumented in this encounter Care Teams Roller Skate Repairer Relationship Specialty Start Date End Date Jl Jordan MD [address] [place] [address] [address] [place] [address] PCP - General 10/28/17 Real Montalvo MD [address] [place] [address] [place] [phone] Resident Rheumatology 10/14/22 Hamilton Quintanilla MD [address] [place] [phone] [employer] Rheumatology 10/14/22 documented as of this encounter
--- OUTSIDE RECORDS SUMMARY | 2024-05-24 14:43 | XMS_ITS | Clinical Summary ---
Author Organization [facility] Address [address] [place] [id number] Care Team Providers Care Tree Surgeon Helper Name Role Phone Unavailable Primary Care Provider Unavailabl e Social History Tobacco Use Types Packs/Day Years Used Date Smoking Tobacco: Never Assessed Sex and Gender Information Value Date Recorded Sex Assigned at Not on file Legal Sex Male 6:12 PM CDT Gender Identity Not on file Sexual Orientation Not on file Plan of Treatment Health Maintenance Due Date Last Done Comments Colorectal Cancer Screening Colonoscopy (10 Years) 1955 Hepatitis C 08/09/1973 DTaP, Tdap and Td Vaccines ( 1 - Tdap) 08/09/1974 Zoster Vaccines (1 of 2) 08/09/2005 Pneumococcal Vaccine: 65+ Ye ars (1 of 1 - PCV) 08/09/2020 COVID-19 Vaccine (1 - 2023-2 5 season) 2023 Influenza Adult (#1) 2024 RSV Immunization or 60+ Years (1 - 1-dose 75+ series) 08/09/2030 Meningococcal B Vaccine Aged Out No l onger eligible based on patient's age to complete this topic Meningococcal Vaccine Aged Out No rena peter eligible based on patient's age to complete this topic RSV Immunizations Under 20 Months Aged Out No longer eligible based on patient's age to complete this topic
--- OUTSIDE RECORDS SUMMARY | 2024-05-24 14:43 | XMS_ITS | Patient Health Summary ---
Author Organization [facility] Address [address] [place] [address] Care Team Providers Care Assembler Equipment Name Role Phone Jl Jordan MD Primary Care Provider [phone] Real Montalvo MD Unavailable [phone] Hamilton Quintanilla MD Unavailable Note from [facility],non-owned Affiliates and Associated Physician Practices is amultiple site organization consisting of ambulatory clinics and hospital sitesin [place], [place], [place] and [place]. This disclosure is being madepursuant to the Care Everywhere program and may not contain all information available regarding this patient. Last updated 18.[facility] Allergies No known active allergies Medications * Be aware that medications may not be up to date on this document. Alwaysverify current medications with the patient. * Multiple Vitamin (MULTI-VITAMIN DAILY PO) * Ibuprofen-Acetaminophen (Advil Dual Action) 125-250 MG TABS Take 1 tablet by mouth 2 times daily as needed with food * methotrexate 2.5 MG tablet(Started 06/05/2023) Take 10 (ten) tablets by mouth every 7 days (5 pills in AM and 5 pills in PM) 2 refills by 06/04/2024 * vitamin D3 (Cholecalciferol) 10 MCG (400 UNIT) tablet Take 1 (one) tablet by mouth once daily * folic acid (Folvite) 1 MG tablet(Started 10/28/2023) Take 1 (one) tablet by mouth once daily 4 refills by 10/27/2024 Active Problems Problem Noted Date Diagnosed Date Right arm weakness 06/05/2018 History of cervical fracture 06/05/2018 Rheumatoid arthritis involving multiple sites Atrophy of muscle of right shoulder 04/24/2018 Osteoarthritis of right shoulder 04/24/2018 Osteoporosis 11/21/2017 Brachial plexopathy Immunizations * FLU VACCINE TRI IIV3 SPLIT IM (FLUVIRIN)(Given 03/11/2016) * INFLUENZA VACCINE, QUADR. (FLUZONE; FLULAVAL; FLUARIX; AFLURIA QUADRIVALENT; 6MO+), 0.5 ML (IIV4)(Given 01/08/2019) * PNEUMOCOCCAL PCV20 CONJ VAC IM(Given 09/14/2021) * PNEUMOCOCCAL PPV VACCINE(Given 03/11/2016) * TDAP, HISTORIC VACCINE(Given 09/14/2021) * ZOSTER VACCINE, LIVE(Given 03/11/2016) * Zoster Hzv Vacc Recombinant Inj Im(Given 09/14/2021) * iNFLUENZA VACCINE, RECOM-HERNANDEZ, QUADR. (FLUBLOCK QUADRIVALENT; 18Y+) (RIV4)(Given 01/07/2020) Social History Tobacco Use Types Packs/Day Years Used Date Smoking Tobacco: Every Day Cigarettes 1 25 Smokeless Tobacco: Never Tobacco Cessation:Ready to Q uit: No; Counseling Given: No Comments:TRIES TO SMOKE LESS OCCASIONALLY Alcohol Use Standard Drinks/Week Comments Not Currently 0 (1 standard drink = 0.6 oz pur e alcohol) OCCASIONALLY AUDIT-C Answer Date Recorded Q1: How often do you have a drink containing alc ohol? Never 10/05/2019 Average Number of Drinks Not on file 020 Q3: How often do you have si x or more drinks on one occasion? Less than monthly 10/05/2019 PHQ-2 Answer Date Recorded Patient Health Questionnaire-2 Score 2 03/12/2023 Sex and Gender Information Value Date Recorded Sex Assigned at Not on file Gender Identity Not on file Sexual Orientation Not on file Last Filed Vital Signs Vital Sign Reading Time Taken Comments Blood Pressure 110/67 07/02/2023 9:55 AM CDT Pulse 61 07/02/2023 9:55 AM CDT Temperature 36.3 C (97.4 F) 07/02/2023 9:55 AM CDT Respiratory Rate 18 03/28/2023 8:51 AM ELECTRICIAN FRONT Oxygen Saturation 95% 07/02/2023 9:55 AM CDT Inhaled Oxygen Concentration - - Weight 56.7 kg (125 lb) 07/02/2023 9:55 AM CDT Height 170.2 cm (5' 7 ) 07/02/2023 9:55 AM CDT Body Mass Index 19.58 07/02/2023 9:55 AM CDT Procedures * PFT-LAB(Performed 08/13/2023) Performed for Seropositive rheumatoid arthritis (HCC) * COMPREHENSIVE METABOLIC PANEL(Performed 08/13/2023) 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 * CBC W AUTO DIFFERENTIAL(Performed 08/13/2023) 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 * COMPREHENSIVE METABOLIC PANEL(Performed 07/02/2023) 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 * CBC W AUTO DIFFERENTIAL(Performed 07/02/2023) 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 * ERYTHROCYTE SEDIMENTATION RATE(Performed 06/04/2023) Performed for Seropositive rheumatoid arthritis (HCC), High risk medication use * C-REACTIVE PROTEIN(Performed 06/04/2023) Performed for Seropositive rheumatoid arthritis (HCC), High risk medication use * CBC W AUTO DIFFERENTIAL(Performed 06/04/2023) Performed for Seropositive rheumatoid arthritis (HCC), High risk medication use * ERYTHROCYTE SEDIMENTATION RATE(Performed 03/28/2023) Performed for Seropositive rheumatoid arthritis (HCC), Therapeutic drug monitoring * C-REACTIVE PROTEIN(Performed 03/28/2023) Performed for Seropositive rheumatoid arthritis (HCC), Therapeutic drug monitoring * COMPREHENSIVE METABOLIC PANEL(Performed 03/28/2023) Performed for Seropositive rheumatoid arthritis (HCC), Therapeutic drug monitoring * CBC W AUTO DIFFERENTIAL(Performed 03/28/2023) Performed for Seropositive rheumatoid arthritis (HCC), Therapeutic drug monitoring * COMPREHENSIVE METABOLIC PANEL(Performed 03/12/2023) 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, 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 * CBC W AUTO DIFFERENTIAL(Performed 03/12/2023) 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, halfway current use of immunosuppressive drug * QUANTIFERON-TB GOLD PLUS 4-TUBE(Performed 03/12/2023) Performed for Seropositive rheumatoid arthritis (HCC), 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, Tuberculosis screening * XR FOOT LEFT 3VW OR MORE(Performed 12/11/2022) Performed for Seropositive rheumatoid arthritis (HCC) * XR WRIST RIGHT 3VW OR MORE(Performed 12/11/2022) Performed for Seropositive rheumatoid arthritis (HCC) * XR WRIST LEFT 3VW OR MORE(Performed 12/11/2022) Performed for Seropositive rheumatoid arthritis (HCC) * XR HAND LEFT 3VW OR MORE(Performed 12/11/2022) Performed for Seropositive rheumatoid arthritis (HCC) * XR HAND RIGHT 3VW OR MORE(Performed 12/11/2022) Performed for Seropositive rheumatoid arthritis (HCC) * XR CERVICAL SPINE 4 OR 5VW(Performed 12/11/2022) Performed for Seropositive rheumatoid arthritis (HCC) * XR FOOT RIGHT 3VW OR MORE(Performed 12/11/2022) Performed for Seropositive rheumatoid arthritis (HCC) * ERYTHROCYTE SEDIMENTATION RATE(Performed 11/26/2022) Performed for Seropositive rheumatoid arthritis (HCC), Therapeutic drug monitoring * C-REACTIVE PROTEIN(Performed 11/26/2022) Performed for Seropositive rheumatoid arthritis (HCC), Therapeutic drug monitoring * COMPREHENSIVE METABOLIC PANEL(Performed 11/26/2022) Performed for Seropositive rheumatoid arthritis (HCC), Therapeutic drug monitoring * CBC W AUTO DIFFERENTIAL(Performed 11/26/2022) Performed for Seropositive rheumatoid arthritis (HCC), Therapeutic drug monitoring * PET CT WHOLE BODY(Performed 08/28/2022) Performed for Lung nodule * GLUCOSE SCREEN - POCT (IP) [facility](Performed 08/28/2022) * COMPREHENSIVE METABOLIC PANEL(Performed 06/12/2022) Performed for Seropositive rheumatoid arthritis (HCC), High risk medication use * ERYTHROCYTE SEDIMENTATION RATE(Performed 06/12/2022) Performed for Seropositive rheumatoid arthritis (HCC), High risk medication use * C-REACTIVE PROTEIN(Performed 06/12/2022) Performed for Seropositive rheumatoid arthritis (HCC), High risk medication use * CBC W AUTO DIFFERENTIAL(Performed 06/12/2022) Performed for Seropositive rheumatoid arthritis (HCC), High risk medication use * WV MSR PVR U&/BLADD CAPCTY US NON(Performed 12/14/2021) Performed for Urge incontinence * URINALYSIS AUTO - POINT OF CARE (AMB) [facility](Performed 12/14/2021) Performed for Urge incontinence * CBC W AUTO DIFFERENTIAL(Performed 11/21/2021) Performed for Seropositive rheumatoid arthritis (HCC), Long-term use of immunosuppressant medication, Therapeutic drug monitoring * ERYTHROCYTE SEDIMENTATION RATE(Performed 11/21/2021) Performed for Seropositive rheumatoid arthritis (HCC), Long-term use of immunosuppressant medication, Therapeutic drug monitoring * C-REACTIVE PROTEIN(Performed 11/21/2021) Performed for Seropositive rheumatoid arthritis (HCC), Long-term use of immunosuppressant medication, Therapeutic drug monitoring * CREATININE BLOOD(Performed 11/21/2021) Performed for Seropositive rheumatoid arthritis (HCC), Long-term use of immunosuppressant medication, Therapeutic drug monitoring * BUN(Performed 11/21/2021) Performed for Seropositive rheumatoid arthritis (HCC), Long-term use of immunosuppressant medication, Therapeutic drug monitoring * AST BLOOD(Performed 11/21/2021) Performed for Seropositive rheumatoid arthritis (HCC), Long-term use of immunosuppressant medication, Therapeutic drug monitoring * ALT(Performed 11/21/2021) Performed for Seropositive rheumatoid arthritis (HCC), Long-term use of immunosuppressant medication, Therapeutic drug monitoring * URINALYSIS AUTO - POINT OF CARE (AMB) [facility](Performed 09/21/2021) Performed for Urinary frequency * WV MSR PVR U&/BLADD CAPCTY US NON(Performed 09/21/2021) Performed for Urinary frequency * XR HAND RIGHT 3VW OR MORE(Performed 09/05/2021) Performed for Right hand pain * XR HAND LEFT 3VW OR MORE(Performed 09/05/2021) Performed for Ganglion cyst * URINALYSIS W/MICROSCOPIC NO CULTURE(Performed 08/24/2021) Performed for Urinary frequency * PSA FREE + TOTAL PANEL(Performed 08/24/2021) Performed for Urinary frequency * QUANTIFERON-TB GOLD PLUS 4-TUBE(Performed 08/24/2021) Performed for Screening-pulmonary TB * WV MSR PVR U&/BLADD CAPCTY US NON(Performed 08/24/2021) Performed for Urinary frequency * URINALYSIS AUTO - POINT OF CARE (AMB) [facility](Performed 08/24/2021) Performed for Urinary frequency * COMPREHENSIVE METABOLIC PANEL(Performed 2021) Performed for Seropositive rheumatoid arthritis (HCC) * CBC W AUTO DIFFERENTIAL(Performed 2021) Performed for Seropositive rheumatoid arthritis (HCC) * C-REACTIVE PROTEIN(Performed 2021) Performed for Seropositive rheumatoid arthritis (HCC) * ERYTHROCYTE SEDIMENTATION RATE(Performed 2021) Performed for Seropositive rheumatoid arthritis (HCC) * VITAMIN D 25-HYDROXY(Performed 04/20/2021) Performed for Seropositive rheumatoid arthritis (HCC) * HEPATITIS C ANTIBODY(Performed 04/20/2021) Performed for Seropositive rheumatoid arthritis (HCC) * HEPATITIS B SURFACE ANTIGEN W RFLX CONFIRMATION(Performed 04/20/2021) Performed for Seropositive rheumatoid arthritis (HCC) * HEPATITIS B SURFACE ANTIBODY(Performed 04/20/2021) Performed for Seropositive rheumatoid arthritis (HCC) * HEPATITIS B CORE ANTIBODY TOTAL(Performed 04/20/2021) Performed for Seropositive rheumatoid arthritis (HCC) * ERYTHROCYTE SEDIMENTATION RATE(Performed 04/20/2021) Performed for Seropositive rheumatoid arthritis (HCC) * C-REACTIVE PROTEIN(Performed 04/20/2021) Performed for Seropositive rheumatoid arthritis (HCC) * COMPREHENSIVE METABOLIC PANEL(Performed 04/20/2021) Performed for Seropositive rheumatoid arthritis (HCC) * CBC W AUTO DIFFERENTIAL(Performed 04/20/2021) Performed for Seropositive rheumatoid arthritis (HCC) * XR HAND LEFT 3VW OR MORE(Performed 04/20/2021) Performed for Seropositive rheumatoid arthritis (HCC) * XR HAND RIGHT 3VW OR MORE(Performed 04/20/2021) Performed for Seropositive rheumatoid arthritis (HCC) * XR FOOT RIGHT 3VW OR MORE(Performed 04/20/2021) Performed for Seropositive rheumatoid arthritis (HCC) * XR FOOT LEFT 3VW OR MORE(Performed 04/20/2021) Performed for Seropositive rheumatoid arthritis (HCC) * URINALYSIS W/MICROSCOPIC REFLEX TO CULTURE(Performed 08/24/2020) Performed for Seropositive rheumatoid arthritis (HCC), High risk medication use, Long-term use of immunosuppressant medication, Arthralgia, unspecified joint, Therapeutic drug monitoring * ERYTHROCYTE SEDIMENTATION RATE(Performed 08/24/2020) Performed for Seropositive rheumatoid arthritis (HCC), High risk medication use, Long-term use of immunosuppressant medication, Arthralgia, unspecified joint, Therapeutic drug monitoring * C-REACTIVE PROTEIN(Performed 08/24/2020) Performed for Seropositive rheumatoid arthritis (HCC), High risk medication use, Long-term use of immunosuppressant medication, Arthralgia, unspecified joint, Therapeutic drug monitoring * COMPREHENSIVE METABOLIC PANEL(Performed 08/24/2020) Performed for Seropositive rheumatoid arthritis (HCC), High risk medication use, Long-term use of immunosuppressant medication, Arthralgia, unspecified joint, Therapeutic drug monitoring * CBC W AUTO DIFFERENTIAL(Performed 08/24/2020) Performed for Seropositive rheumatoid arthritis (HCC), High risk medication use, Long-term use of immunosuppressant medication, Arthralgia, unspecified joint, Therapeutic drug monitoring * URINALYSIS W/MICROSCOPIC REFLEX TO CULTURE(Performed 08/24/2020) Performed for Seropositive rheumatoid arthritis (HCC), High risk medication use, Long-term use of immunosuppressant medication, Arthralgia, unspecified joint, Therapeutic drug monitoring * CBC W AUTO DIFFERENTIAL(Performed 08/24/2020) Performed for Seropositive rheumatoid arthritis (HCC), High risk medication use, Long-term use of immunosuppressant medication, Arthralgia, unspecified joint, Therapeutic drug monitoring * ERYTHROCYTE SEDIMENTATION RATE(Performed 08/24/2020) Performed for Seropositive rheumatoid arthritis (HCC), High risk medication use, Long-term use of immunosuppressant medication, Arthralgia, unspecified joint, Therapeutic drug monitoring * COMPREHENSIVE METABOLIC PANEL(Performed 08/24/2020) Performed for Seropositive rheumatoid arthritis (HCC), High risk medication use, Long-term use of immunosuppressant medication, Arthralgia, unspecified joint, Therapeutic drug monitoring * ERYTHROCYTE SEDIMENTATION RATE(Performed 08/24/2020) Performed for Seropositive rheumatoid arthritis (HCC), High risk medication use, Long-term use of immunosuppressant medication, Arthralgia, unspecified joint * URINALYSIS W/MICROSCOPIC REFLEX TO CULTURE(Performed 08/24/2020) Performed for Seropositive rheumatoid arthritis (HCC), High risk medication use, Long-term use of immunosuppressant medication, Arthralgia, unspecified joint * URINALYSIS W/MICROSCOPIC REFLEX TO CULTURE(Performed 08/24/2020) Performed for Seropositive rheumatoid arthritis (HCC), High risk medication use, Long-term use of immunosuppressant medication, Arthralgia, unspecified joint, Therapeutic drug monitoring * CBC W AUTO DIFFERENTIAL(Performed 08/24/2020) Performed for Seropositive rheumatoid arthritis (HCC), High risk medication use, Long-term use of immunosuppressant medication, Arthralgia, unspecified joint, Therapeutic drug monitoring * CULTURE URINE REFLEXED I(Performed 08/24/2020) * CT LUNG SCREEN LOW DOSE(Performed 05/11/2020) Performed for Tobacco abuse disorder * QUANTIFERON-TB GOLD PLUS 1-TUBE(Performed 05/10/2020) Performed for Seropositive rheumatoid arthritis (HCC), High risk medication use, Long-term use of immunosuppressant medication, Arthralgia, unspecified joint, Therapeutic drug monitoring * URINALYSIS W/MICROSCOPIC REFLEX TO CULTURE(Performed 05/10/2020) Performed for Seropositive rheumatoid arthritis (HCC), High risk medication use, Long-term use of immunosuppressant medication, Arthralgia, unspecified joint, Therapeutic drug monitoring * ERYTHROCYTE SEDIMENTATION RATE(Performed 05/10/2020) Performed for Seropositive rheumatoid arthritis (HCC), High risk medication use, Long-term use of immunosuppressant medication, Arthralgia, unspecified joint, Therapeutic drug monitoring * C-REACTIVE PROTEIN(Performed 05/10/2020) Performed for Seropositive rheumatoid arthritis (HCC), High risk medication use, Long-term use of immunosuppressant medication, Arthralgia, unspecified joint, Therapeutic drug monitoring * COMPREHENSIVE METABOLIC PANEL(Performed 05/10/2020) Performed for Seropositive rheumatoid arthritis (HCC), High risk medication use, Long-term use of immunosuppressant medication, Arthralgia, unspecified joint, Therapeutic drug monitoring * CBC W AUTO DIFFERENTIAL(Performed 05/10/2020) Performed for Seropositive rheumatoid arthritis (HCC), High risk medication use, Long-term use of immunosuppressant medication, Arthralgia, unspecified joint, Therapeutic drug monitoring * ERYTHROCYTE SEDIMENTATION RATE(Performed 05/10/2020) Performed for Seropositive rheumatoid arthritis (HCC), High risk medication use, Long-term use of immunosuppressant medication, Arthralgia, unspecified joint * URINALYSIS W/MICROSCOPIC REFLEX TO CULTURE(Performed 05/10/2020) Performed for Seropositive rheumatoid arthritis (HCC), High risk medication use, Long-term use of immunosuppressant medication, Arthralgia, unspecified joint * C-REACTIVE PROTEIN(Performed 05/10/2020) Performed for Seropositive rheumatoid arthritis (HCC), High risk medication use, Long-term use of immunosuppressant medication, Arthralgia, unspecified joint * COMPREHENSIVE METABOLIC PANEL(Performed 05/10/2020) Performed for Seropositive rheumatoid arthritis (HCC), High risk medication use, Long-term use of immunosuppressant medication, Arthralgia, unspecified joint * CULTURE URINE REFLEXED I(Performed 05/10/2020) Performed for Seropositive rheumatoid arthritis (HCC), High risk medication use, Long-term use of immunosuppressant medication, Arthralgia, unspecified joint, Therapeutic drug monitoring * C-REACTIVE PROTEIN(Performed 02/02/2020) Performed for Seropositive rheumatoid arthritis (HCC), High risk medication use, Long-term use of immunosuppressant medication, Arthralgia, unspecified joint * ERYTHROCYTE SEDIMENTATION RATE(Performed 02/02/2020) Performed for Seropositive rheumatoid arthritis (HCC), High risk medication use, Long-term use of immunosuppressant medication, Arthralgia, unspecified joint * URINALYSIS W/MICROSCOPIC REFLEX TO CULTURE(Performed 02/02/2020) Performed for Seropositive rheumatoid arthritis (HCC), High risk medication use, Long-term use of immunosuppressant medication, Arthralgia, unspecified joint * COMPREHENSIVE METABOLIC PANEL(Performed 02/02/2020) Performed for Seropositive rheumatoid arthritis (HCC), High risk medication use, Long-term use of immunosuppressant medication, Arthralgia, unspecified joint * CBC W/O DIFFERENTIAL(Performed 02/02/2020) Performed for Seropositive rheumatoid arthritis (HCC), High risk medication use, Long-term use of immunosuppressant medication, Arthralgia, unspecified joint * CULTURE URINE REFLEXED I(Performed 02/02/2020) * URINALYSIS W/MICROSCOPIC REFLEX TO CULTURE(Performed 11/15/2019) Performed for Seropositive rheumatoid arthritis (HCC), High risk medication use, Long-term use of immunosuppressant medication, Arthralgia, unspecified joint * ERYTHROCYTE SEDIMENTATION RATE(Performed 11/15/2019) Performed for Seropositive rheumatoid arthritis (HCC), High risk medication use, Long-term use of immunosuppressant medication, Arthralgia, unspecified joint * C-REACTIVE PROTEIN(Performed 11/15/2019) Performed for Seropositive rheumatoid arthritis (HCC), High risk medication use, Long-term use of immunosuppressant medication, Arthralgia, unspecified joint * COMPREHENSIVE METABOLIC PANEL(Performed 11/15/2019) Performed for Seropositive rheumatoid arthritis (HCC), High risk medication use, Long-term use of immunosuppressant medication, Arthralgia, unspecified joint * CBC W AUTO DIFFERENTIAL(Performed 11/15/2019) Performed for Seropositive rheumatoid arthritis (HCC), High risk medication use, Long-term use of immunosuppressant medication, Arthralgia, unspecified joint * CULTURE URINE REFLEXED I(Performed 11/15/2019) * URINALYSIS REFLEX TO MICROSCOPIC NO CULTURE(Performed 10/27/2019) * QUANTIFERON-TB GOLD PLUS 1-TUBE(Performed 10/27/2019) * CYCLIC CITRULLINATED PEPTIDE(CCP) AB IGG(Performed 10/27/2019) * C-REACTIVE PROTEIN(Performed 10/27/2019) * RHEUMATOID FACTOR BLOOD QUANTITATIVE(Performed 10/27/2019) * CBC W AUTO DIFFERENTIAL(Performed 10/27/2019) * ERYTHROCYTE SEDIMENTATION RATE(Performed 10/27/2019) * COMPREHENSIVE METABOLIC PANEL(Performed 10/27/2019) * URIC ACID BLOOD(Performed 10/27/2019) * MRI SHOULDER RIGHT W CONTRAST(Performed 07/14/2018) Performed for Right arm weakness, Chronic right shoulder pain * MRI CERVICAL SPINE WO CONTRAST(Performed 07/14/2018) Performed for History of cervical fracture * FL SHOULDER RIGHT ARTHROGRAM(Performed 07/14/2018) Performed for Right arm weakness, Chronic right shoulder pain * WV DRAIN/INJECT LARGE JOINT/BURSA(Performed 04/24/2018) Performed for Right shoulder pain, unspecified chronicity, Rotator cuff syndrome of right shoulder,Osteoarthritis of right shoulder, unspecified osteoarthritis type * XR SHOULDER RIGHT 2VW OR MORE(Performed 11/21/2017) Performed for Right shoulder pain, unspecified chronicity Results * Complete PFT [facility] PFT Lab (08/13/2023 2:32 PM CDT) Impressions Mustapha Easton MD - 08/13/2023 2:32 PM CDT [facility] DEPARTMENT OF PULMONARY, CRITICAL CARE, AND SLEEP MEDICINE PULMONARY FUNCTION TEST Please see technologist's comments mentioned in the report. INTERPRETATION: SPIROMETRY: FVC: normal FEV1: normal FEV1/FVC ratio is normal BRONCHODILATOR RESPONSE: There is no significant response to bronchodilator therapy however does not preclude from bronchodilator therapy if clinically indicated otherwise FLOW-VOLUME LOOPS: Normal flow-volume loops LUNG VOLUMES: Lung volumes by body plethysmography show normal total lung volume and increased residual volume DLCO: Unadjusted for Hb and COHb is: normal (-1.65 to 1.645) DLCO: Corrected for Hb and COHb is: normal (-1.65 to 1.645) AIRWAY RESISTANCE: The airway resistance is normal and the specific conductance is normal ARTERIAL BLOOD GAS ANALYSIS: not performed IMPRESSION: 1. Normal Pulmonary Function Test 2. Corrected DLCO is normal. 3. No significant bronchodilator response, however this does not preclude the use of bronchodilators 4. There is no previous study available for comparison. Juliette Frances MD Pulmonary and Critical Care Fellow [facility] Pager: [phone] I have personally reviewed pulmonary function test data and finding. I concur with fellow's note. Mustapha Easton MD Narrative Mustapha Easton MD - 08/13/2023 2:32 PM CDT Juliette Frances MD 08/13/2023 5:05 PM Hamilton Quintanilla MD RESPIRATORY THERAPY ORDERABLES * CBC WITH DIFFERENTIAL (08/13/2023 9:50 AM CDT) Only the most recent of16 resultswithin the time period is included. WBC 7.2 4.0 - 10.7 x10E9/L 08/13/2023 10:23 AM [facility] RBC Count 4.34 4.30 - 5.80 x10E12/L 08/13/2023 10:23 AM [facility] Hemoglobin 13.7 13.3 - 17.5 g/dL 08/13/2023 10:23 AM [facility] Hematocrit 40.5 38.7 - 51.1 % 08/13/2023 10:23 AM [facility] MCV 93.3 80.0 - 98.0 fL 08/13/2023 10:23 AM [facility] MCH 31.6 26.7 - 33.6 pg 08/13/2023 10:23 AM [facility] MCHC 33.8 31.7 - 36.3 g/dL 08/13/2023 10:23 AM [facility] RDW-CV 14.1 11.3 - 14.8 % 08/13/2023 10:23 AM [facility] Platelet Count 269 150 - 420 x10E9/L 08/13/2023 10:23 AM [facility] MPV 10.0 7.8 - 11.4 fL 08/13/2023 10:23 AM [facility] Neutrophil % 63.4 41.0 - 74.0 % 08/13/2023 10:23 AM [facility] Lymphocyte % 20.1 17.0 - 47.0 % 08/13/2023 10:23 AM [facility] Monocyte % 8.4 3.0 - 11.0 % 08/13/2023 10:23 AM [facility] Eosinophil % 6.0 0.0 - 7.0 % 08/13/2023 10:23 AM [facility] Basophil % 1.1 0.0 - 1.6 % 08/13/2023 10:23 AM [facility] Immature Granulocytes % 1.0 0.0 - 1.0 % 08/13/2023 10:23 AM [facility] Neutrophil Absolute 4.58 1.60 - 7.50 x10E9/L 08/13/2023 10:23 AM [facility] Lymphocyte Absolute 1.45 1.00 - 4.40 x10E9/L 08/13/2023 10:23 AM [facility] Monocyte Absolute 0.61 0.15 - 1.00 x10E9/L 08/13/2023 10:23 AM [facility] Eosinophil Absolute 0.43 0.00 - 0.60 x10E9/L 08/13/2023 10:23 AM [facility] Basophil Absolute 0.08 0.00 - 0.13 x10E9/L 08/13/2023 10:23 AM [facility] Blood BLOOD SPECIMEN / Unknown Lab Venipuncture / Unknown 08/13/2023 9:50 AM CDT 08/13/2023 10:09 AM CDT Haimlton Quintanilla MD LAB - HEMATOLOGY ORD ERABLES [facility] [address] [place] [address], [facility] [phone] * (ABNORMAL) COMPREHENSIVE METABOLIC PANEL (08/13/2023 9:50 AM CDT) Only the most recent of15 resultswithin the time period is included. BUN 14 7 - 26 mg/dL 08/13/2023 10:42 AM [facility] Creatinine 0.63(L) 0.71 - 1.16 mg/dL 08/13/2023 10:42 AM [facility] Sodium 140 136 - 145 mmol/L 08/13/2023 10:42 AM [facility] Potassium 4.4 3.5 - 4.5 mmol/L 08/13/2023 10:42 AM [facility] Chloride 107 98 - 107 mmol/L 08/13/2023 10:42 AM [facility] CO2 27 22 - 29 mmol/L 08/13/2023 10:42 AM [facility] Glucose 114 70 - 115 mg/dL 08/13/2023 10:42 AM [facility] Calcium 8.9 8.4 - 10.2 mg/dL 08/13/2023 10:42 AM [facility] Protein Total 6.3 6.0 - 8.3 g/dL 08/13/2023 10:42 AM [facility] Albumin 3.2(L) 3.4 - 5.0 g/dL 08/13/2023 10:42 AM [facility] Bilirubin Total 0.3 0.2 - 1.2 mg/dL 08/13/2023 10:42 AM [facility] Alkaline Phosphatase 91 40 - 150 U/L 08/13/2023 10:42 AM [facility] ALT 16 5 - 55 U/L 08/13/2023 10:42 AM [facility] AST 21 5 - 34 U/L 08/13/2023 10:42 AM [facility] Anion Gap 6 6 - 16 08/13/2023 10:42 AM [facility] BUN/Creatinine Ratio 22 7 - 23 08/13/2023 10:42 AM [facility] Osmolality Calculated 291 275 - 295 mOsm/kg 08/13/2023 10:42 AM [facility] Albumin/Globulin Ratio 1.0(L) 1.1 - 2.3 08/13/2023 10:42 AM [facility] eGFR by CKD-EPI >90 >=90 mL/min/1.7 3 m2 08/13/2023 10:42 AM [facility] Blood BLOOD SPECIMEN / Unknown Lab Venipuncture / Unknown 08/13/2023 9:50 AM T 08/13/2023 10:09 AM [facility] Hamilton Quintanilla MD LAB - CHEMISTRY MIHIR DUBOSE [facility] Organization Address City/State/ZIP Co de Phone Number [address] [address], [facility] [phone] * C-REACTIVE PROTEIN (06/04/2023 11:44 AM [facility]) Only the most recent of13 resultswithin the time period is included. Pathologist [facility] C-Reactive Protein <0.5 <=0.5 mg/dL 06/04/2023 12:30 PM [facility] Blood BLOOD SPECIMEN / Unknown Lab Venipuncture / Unknown 06/04/2023 11:44 AM [facility] 06/04/2023 12:04 PM [facility] Hamilton Quintanilla MD LAB - CHEMISTRY MIHIR DUBOSE [address] [address], [facility] [phone] * (ABNORMAL) ERYTHROCYTE SEDIMENTATION RATE (06/04/2023 11:44 AM [facility]) Only the most recent of15 resultswithin the time period is included. [facility] Erythrocyte Sedimentation Rate Westergren 29(H) 0 - 20 MM/HR 06/04/2023 12:16 PM [facility] Blood BLOOD SPECIMEN / Unknown Lab Venipuncture / Unknown 06/04/2023 11:44 AM [facility] 06/04/2023 12:04 PM [facility] Hamilton Quintanilla MD LAB - HEMATOLOGY ORD RINA [address] [address], [facility] [phone] * QUANTIFERON-TB GOLD PLUS 4-TUBE (03/12/2023 10:17 AM [facility]) Only the most recent of2 resultswithin the time period is included. [facility] QuantiFERON NIL 0.02 IU/mL 4:56 PM [facility] [employer] ([facility]) Comment: Performed By: [employer] [address] [place] [id number] [employer] Administrator: Dewey Scott MD, PhD CLIA Number: [id number] QuantiFERON TB Gold Plus Negative Negative 03/14/2023 4:56 PM [facility] [employer] ([facility]) Comment: Interpretive Data: Quantiferon TB Gold Plus Interferon gamma release is measured for specimens from each of the four collection tubes. A qualitative result (Negative, Positive, or Indeterminate) is based on interpretation of the four values, NIL, MITOGEN minus NIL (MITOGEN-NIL), TB1 minus NIL (TB1-NIL), and TB2 minus NIL (TB2-NIL). The NIL value represents nonspecific reactivity produced by the patient specimen. The MITOGEN-NIL value serves as the positive control for the patient specimen, demonstrating successful lymphocyte activity. The TB1-NIL tube specifically detects CD4+ lymphocyte reactivity, specifically stimulated by the TB1 antigens. The TB2-NIL tube detects both CD4+ and CD8+ lymphocyte reactivity, stimulated by TB2 antigens. An overall Negative result does not completely rule out TB infection. A false-positive result in the absence of other clinical evidence of TB infection is not uncommon. Refer to: Updated Guidelines for Using Interferon Gamma Release Assays to Detect Mycobacterium tuberculosis Infection --- [place], 2010 (http://www.cdc.gov/mmwr/preview/mmwrhtml/yh0342y8.htm), for more information concerning test performance in low-prevalence populations and use in occupational screening. QuantiFERON Plus TB1 Minus NIL 0.00 0.00 - 0.34 IU/mL 03/14/2023 4:56 PM [facility] [employer] ([facility]) QuantiFERON Plus TB2 Minus NIL 0.00 0.00 - 0.34 IU/mL 03/14/2023 4:56 PM [facility] [employer] ([facility]) QuantiFERON Mitogen Minus NIL >10.00 IU/mL 03/14/2023 4:56 PM [facility] [employer] [facility]) Blood BLOOD SPECIMEN / Unknown Lab Venipuncture / Unknown 03/12/2023 10:17 AM [facility] 03/12/2023 10:33 AM [facility] Hamilton Quintanilla MD LAB - CHEMISTRY MIHIR Clark Organization Address City/State/ZIP Co de Phone Number [employer] [facility]) [address] [place] [address], [facility] * XR FOOT RIGHT 3VW OR MORE (12/11/2022 11:16 AM CDT) Only the most recent of2 resultswithin the time period is included. Anatomical Region Laterality Modality Ankle / Foot Radiographic Janice ging 12/11/2022 11:1 5 AM CDT Impressions 12/11/2022 11:25 AM CDT IMPRESSION: 1. Right and left hands: Moderate arthritis with subluxation affecting several metacarpal phalangeal joints bilaterally consistent with rheumatoid arthritis. The degree of arthritis has not progressed significantly; the subluxation has mildly worsened. 2. Right wrist: No significant arthritis. 3. Left wrist: Mild arthritic change. Chronic healed distal radial fracture. 4. Right and left feet: Minimal arthritic change at the second metatarsophalangeal joints bilaterally. 5. Soft tissue swelling is demonstrated on all the above studies, including areas of severe soft tissue swelling around the arthritic joints in the hands and feet. > Interpreting Provider: Daniel Lockwood MD on 12/11/2022 11:25 AM Narrative 12/11/2022 11:25 AM CDT PROCEDURE: XR HAND RIGHT 3VW OR MORE, XR FOOT LEFT 3VW OR MORE, XR WRIST RIGHT 3VW OR MORE, XR WRIST LEFT 3VW OR MORE, XR HAND LEFT 3VW OR MORE, XR FOOT RIGHT 3VW OR MORE DATE/TIME OF EXAM: 12/11/2022 11:16 AM CLINICAL INFORMATION: None relevant/not provided if blank. Indication: M05.9: Seropositive rheumatoid arthritis ([facility]) Additional History: COMPARISON: Right and left hand x-rays dated 09/05/2021. Right and left foot x-rays dated 04/20/2021. FINDINGS: Right hand: No fracture or dislocation is present. There is moderate joint space narrowing at the second and third metacarpophalangeal joints with mild erosive changes and moderate subluxation. The degree of subluxation has increased. There is more mild arthritic change at the fourth metacarpophalangeal joint. There are erosions in the base of the fifth metacarpal medially, similar to the prior study. There is mild osteoarthritis at a few interphalangeal joints. There is soft tissue swelling, most prominently adjacent to the second metacarpophalangeal joint and second and fourth finger proximal interphalangeal joints. Left hand: No fracture or dislocation. There is moderate joint space narrowing at the first through third metacarpophalangeal joints with subluxation and mild erosive changes. There is more mild arthritic change at the fourth metacarpophalangeal joint. There is mild osteoarthritis at multiple interphalangeal joints. There is soft tissue swelling, most prominently adjacent to the first and second metacarpophalangeal joints and second through fourth proximal interphalangeal joints. Right wrist: No fracture or dislocation. Minimal degenerative change at the first carpometacarpal joint. Otherwise the joint spaces are normal. No erosions of the carpal bones. There is soft tissue swelling. Small radiopacity in the soft tissues between the first and second metacarpals on the oblique view may be a calcification or foreign body. Left wrist: No acute fracture or dislocation. There is a chronic healed distal radial fracture with residual deformity including impaction resulting in positive ulnar variance and slight widening of the distal radioulnar joint. Subchondral cysts in the distal ulna without definite erosions. Joint spaces are otherwise normal. Mild soft tissue swelling. Right foot: No fracture or dislocation. Mild narrowing of the second metatarsophalangeal joint with subchondral cysts versus mild erosive change in the metatarsal head. Otherwise the joint spaces are normal and no erosions are seen. There is soft tissue swelling, most prominent adjacent to the first metatarsophalangeal and fifth metatarsophalangeal joints and fifth metatarsal base. Left foot: No fracture or dislocation. Mild arthritis at the second metatarsophalangeal joint with mild narrowing. No definite erosions. Otherwise the joint spaces are maintained. Prominent soft tissue swelling including at the and distal aspect of the first toe and fifth metatarsophalangeal joint and fifth metatarsal base. Procedure Note Daniel Lockwood MD - 12/11/2022 PROCEDURE: XR HAND RIGHT 3VW OR MORE, XR FOOT LEFT 3VW OR MORE, XRWRIST RIGHT 3VW OR MORE, XR WRIST LEFT 3VW OR MORE, XR HAND LEFT 3VW OR MORE,XR FOOT RIGHT 3VW OR MORE DATE/TIME OF EXAM: 12/11/2022 11:16 AM CLINICAL INFORMATION: None relevant/not provided if blank. Indication: M05.9: Seropositive rheumatoid arthritis (CMS/HCC) Additional History: COMPARISON: Right and left hand x-rays dated 09/05/2021. Right and left foot x-rays dated 04/20/2021. FINDINGS: Right hand: No fracture or dislocation is present. There is moderate joint space narrowing at the second and third metacarpophalangeal joints with mild erosive changes and moderate subluxation. The degree of subluxation has increased. There is more mild arthritic change at the fourth metacarpophalangeal joint. There are erosions in the base of the fifth metacarpal medially, similar to the prior study. There is mild osteoarthritis at a few interphalangeal joints. There is soft tissue swelling, most prominently adjacent to the second metacarpophalangealjoint and second and fourth finger proximal interphalangeal joints. Left hand: No fracture or dislocation. There is moderate joint space narrowing atthe first through third metacarpophalangeal joints with subluxation and mild erosive changes. There is more mild arthritic change at the fourth metacarpophalangeal joint. There is mild osteoarthritis at multiple interphalangeal joints. There is soft tissue swelling, most prominently adjacent to the first and second metacarpophalangeal joints and second through fourth proximal interphalangeal joints. Right wrist: No fracture or dislocation. Minimal degenerative change at the first carpometacarpal joint. Otherwise the joint spaces are normal. Noerosions of the carpal bones. There is soft tissue swelling. Small radiopacity in the soft tissues between the first and second metacarpals on the oblique view may be a calcification or foreign body. Left wrist: No acute fracture or dislocation. There is a chronic healed distalradial fracture with residual deformity including impaction resulting inpositive ulnar variance and slight widening of the distal radioulnar joint. Subchondral cysts in the distal ulna without definite erosions. Joint spaces are otherwise normal. Mild soft tissue swelling. Right foot: No fracture or dislocation. Mild narrowing of the second metatarsophalangeal joint with subchondral cysts versus mild erosivechange in the metatarsal head. Otherwise the joint spaces are normal and no erosions are seen. There is soft tissue swelling, most prominentadjacent to the first metatarsophalangeal and fifth metatarsophalangeal jointsand fifth metatarsal base. Left foot: No fracture or dislocation. Mild arthritis at the second metatarsophalangeal joint with mild narrowing. No definite erosions. Otherwise the joint spaces are maintained. Prominent soft tissueswelling including at the and distal aspect of the first toe and fifth metatarsophalangeal joint and fifth metatarsal base. IMPRESSION: 1. Right and left hands: Moderate arthritis with subluxation affecting several metacarpal phalangeal joints bilaterally consistent withrheumatoid arthritis. The degree of arthritis has not progressed significantly; the subluxation has mildly worsened. 2. Right wrist: No significant arthritis. 3. Left wrist: Mild arthritic change. Chronic healed distal radial fracture. 4. Right and left feet: Minimal arthritic change at the second metatarsophalangeal joints bilaterally. 5. Soft tissue swelling is demonstrated on all the above studies,including areas of severe soft tissue swelling around the arthritic joints in the hands and feet. > Interpreting Provider: Daniel Lockwood MD on 12/11/2022 11:25 AM Hamilton Quintanilla MD DIAGNOSTIC IMAGING O RDERABLES * XR FOOT LEFT 3VW OR MORE (12/11/2022 11:16 AM CDT) Only the most recent of2 resultswithin the time period is included. Anatomical Region Laterality Modality Ankle / Foot Radiographic Janice ging 12/11/2022 11:1 5 AM CDT Impressions 12/11/2022 11:25 AM CDT IMPRESSION: 1. Right and left hands: Moderate arthritis with subluxation affecting several metacarpal phalangeal joints bilaterally consistent with rheumatoid arthritis. The degree of arthritis has not progressed significantly; the subluxation has mildly worsened. 2. Right wrist: No significant arthritis. 3. Left wrist: Mild arthritic change. Chronic healed distal radial fracture. 4. Right and left feet: Minimal arthritic change at the second metatarsophalangeal joints bilaterally. 5. Soft tissue swelling is demonstrated on all the above studies, including areas of severe soft tissue swelling around the arthritic joints in the hands and feet. > Interpreting Provider: Daniel Lockwood MD on 12/11/2022 11:25 AM Narrative 12/11/2022 11:25 AM CDT PROCEDURE: XR HAND RIGHT 3VW OR MORE, XR FOOT LEFT 3VW OR MORE, XR WRIST RIGHT 3VW OR MORE, XR WRIST LEFT 3VW OR MORE, XR HAND LEFT 3VW OR MORE, XR FOOT RIGHT 3VW OR MORE DATE/TIME OF EXAM: 12/11/2022 11:16 AM CLINICAL INFORMATION: None relevant/not provided if blank. Indication: M05.9: Seropositive rheumatoid arthritis (CMS/HCC) Additional History: COMPARISON: Right and left hand x-rays dated 09/05/2021. Right and left foot x-rays dated 04/20/2021. FINDINGS: Right hand: No fracture or dislocation is present. There is moderate joint space narrowing at the second and third metacarpophalangeal joints with mild erosive changes and moderate subluxation. The degree of subluxation has increased. There is more mild arthritic change at the fourth metacarpophalangeal joint. There are erosions in the base of the fifth metacarpal medially, similar to the prior study. There is mild osteoarthritis at a few interphalangeal joints. There is soft tissue swelling, most prominently adjacent to the second metacarpophalangeal joint and second and fourth finger proximal interphalangeal joints. Left hand: No fracture or dislocation. There is moderate joint space narrowing at the first through third metacarpophalangeal joints with subluxation and mild erosive changes. There is more mild arthritic change at the fourth metacarpophalangeal joint. There is mild osteoarthritis at multiple interphalangeal joints. There is soft tissue swelling, most prominently adjacent to the first and second metacarpophalangeal joints and second through fourth proximal interphalangeal joints. Right wrist: No fracture or dislocation. Minimal degenerative change at the first carpometacarpal joint. Otherwise the joint spaces are normal. No erosions of the carpal bones. There is soft tissue swelling. Small radiopacity in the soft tissues between the first and second metacarpals on the oblique view may be a calcification or foreign body. Left wrist: No acute fracture or dislocation. There is a chronic healed distal radial fracture with residual deformity including impaction resulting in positive ulnar variance and slight widening of the distal radioulnar joint. Subchondral cysts in the distal ulna without definite erosions. Joint spaces are otherwise normal. Mild soft tissue swelling. Right foot: No fracture or dislocation. Mild narrowing of the second metatarsophalangeal joint with subchondral cysts versus mild erosive change in the metatarsal head. Otherwise the joint spaces are normal and no erosions are seen. There is soft tissue swelling, most prominent adjacent to the first metatarsophalangeal and fifth metatarsophalangeal joints and fifth metatarsal base. Left foot: No fracture or dislocation. Mild arthritis at the second metatarsophalangeal joint with mild narrowing. No definite erosions. Otherwise the joint spaces are maintained. Prominent soft tissue swelling including at the and distal aspect of the first toe and fifth metatarsophalangeal joint and fifth metatarsal base. Procedure Note Daniel Lockwood MD - 12/11/2022 PROCEDURE: XR HAND RIGHT 3VW OR MORE, XR FOOT LEFT 3VW OR MORE, XRWRIST RIGHT 3VW OR MORE, XR WRIST LEFT 3VW OR MORE, XR HAND LEFT 3VW OR MORE,XR FOOT RIGHT 3VW OR MORE DATE/TIME OF EXAM: 12/11/2022 11:16 AM CLINICAL INFORMATION: None relevant/not provided if blank. Indication: M05.9: Seropositive rheumatoid arthritis ([facility]) Additional History: COMPARISON: Right and left hand x-rays dated 09/05/2021. Right and left foot x-rays dated 04/20/2021. FINDINGS: Right hand: No fracture or dislocation is present. There is moderate joint space narrowing at the second and third metacarpophalangeal joints with mild erosive changes and moderate subluxation. The degree of subluxation has increased. There is more mild arthritic change at the fourth metacarpophalangeal joint. There are erosions in the base of the fifth metacarpal medially, similar to the prior study. There is mild osteoarthritis at a few interphalangeal joints. There is soft tissue swelling, most prominently adjacent to the second metacarpophalangealjoint and second and fourth finger proximal interphalangeal joints. Left hand: No fracture or dislocation. There is moderate joint space narrowing atthe first through third metacarpophalangeal joints with subluxation and mild erosive changes. There is more mild arthritic change at the fourth metacarpophalangeal joint. There is mild osteoarthritis at multiple interphalangeal joints. There is soft tissue swelling, most prominently adjacent to the first and second metacarpophalangeal joints and second through fourth proximal interphalangeal joints. Right wrist: No fracture or dislocation. Minimal degenerative change at the first carpometacarpal joint. Otherwise the joint spaces are normal. Noerosions of the carpal bones. There is soft tissue swelling. Small radiopacity in the soft tissues between the first and second metacarpals on the oblique view may be a calcification or foreign body. Left wrist: No acute fracture or dislocation. There is a chronic healed distalradial fracture with residual deformity including impaction resulting inpositive ulnar variance and slight widening of the distal radioulnar joint. Subchondral cysts in the distal ulna without definite erosions. Joint spaces are otherwise normal. Mild soft tissue swelling. Right foot: No fracture or dislocation. Mild narrowing of the second metatarsophalangeal joint with subchondral cysts versus mild erosivechange in the metatarsal head. Otherwise the joint spaces are normal and no erosions are seen. There is soft tissue swelling, most prominentadjacent to the first metatarsophalangeal and fifth metatarsophalangeal jointsand fifth metatarsal base. Left foot: No fracture or dislocation. Mild arthritis at the second metatarsophalangeal joint with mild narrowing. No definite erosions. Otherwise the joint spaces are maintained. Prominent soft tissueswelling including at the and distal aspect of the first toe and fifth metatarsophalangeal joint and fifth metatarsal base. IMPRESSION: 1. Right and left hands: Moderate arthritis with subluxation affecting several metacarpal phalangeal joints bilaterally consistent withrheumatoid arthritis. The degree of arthritis has not progressed significantly; the subluxation has mildly worsened. 2. Right wrist: No significant arthritis. 3. Left wrist: Mild arthritic change. Chronic healed distal radial fracture. 4. Right and left feet: Minimal arthritic change at the second metatarsophalangeal joints bilaterally. 5. Soft tissue swelling is demonstrated on all the above studies,including areas of severe soft tissue swelling around the arthritic joints in the hands and feet. > Interpreting Provider: Daniel Lockwood MD on 12/11/2022 11:25 AM Hamilton Quintanilla MD DIAGNOSTIC IMAGING O RDERABLES * XR HAND RIGHT 3VW OR MORE (12/11/2022 11:16 AM CDT) Only the most recent of3 resultswithin the time period is included. Anatomical Region Laterality Modality Wrist / Hand Radiographic Janice ging 12/11/2022 11:1 5 AM CDT Impressions 12/11/2022 11:25 AM CDT IMPRESSION: 1. Right and left hands: Moderate arthritis with subluxation affecting several metacarpal phalangeal joints bilaterally consistent with rheumatoid arthritis. The degree of arthritis has not progressed significantly; the subluxation has mildly worsened. 2. Right wrist: No significant arthritis. 3. Left wrist: Mild arthritic change. Chronic healed distal radial fracture. 4. Right and left feet: Minimal arthritic change at the second metatarsophalangeal joints bilaterally. 5. Soft tissue swelling is demonstrated on all the above studies, including areas of severe soft tissue swelling around the arthritic joints in the hands and feet. > Interpreting Provider: Daniel Lockwood MD on 12/11/2022 11:25 AM Narrative 12/11/2022 11:25 AM CDT PROCEDURE: XR HAND RIGHT 3VW OR MORE, XR FOOT LEFT 3VW OR MORE, XR WRIST RIGHT 3VW OR MORE, XR WRIST LEFT 3VW OR MORE, XR HAND LEFT 3VW OR MORE, XR FOOT RIGHT 3VW OR MORE DATE/TIME OF EXAM: 12/11/2022 11:16 AM CLINICAL INFORMATION: None relevant/not provided if blank. Indication: M05.9: Seropositive rheumatoid arthritis ([facility]) Additional History: COMPARISON: Right and left hand x-rays dated 09/05/2021. Right and left foot x-rays dated 04/20/2021. FINDINGS: Right hand: No fracture or dislocation is present. There is moderate joint space narrowing at the second and third metacarpophalangeal joints with mild erosive changes and moderate subluxation. The degree of subluxation has increased. There is more mild arthritic change at the fourth metacarpophalangeal joint. There are erosions in the base of the fifth metacarpal medially, similar to the prior study. There is mild osteoarthritis at a few interphalangeal joints. There is soft tissue swelling, most prominently adjacent to the second metacarpophalangeal joint and second and fourth finger proximal interphalangeal joints. Left hand: No fracture or dislocation. There is moderate joint space narrowing at the first through third metacarpophalangeal joints with subluxation and mild erosive changes. There is more mild arthritic change at the fourth metacarpophalangeal joint. There is mild osteoarthritis at multiple interphalangeal joints. There is soft tissue swelling, most prominently adjacent to the first and second metacarpophalangeal joints and second through fourth proximal interphalangeal joints. Right wrist: No fracture or dislocation. Minimal degenerative change at the first carpometacarpal joint. Otherwise the joint spaces are normal. No erosions of the carpal bones. There is soft tissue swelling. Small radiopacity in the soft tissues between the first and second metacarpals on the oblique view may be a calcification or foreign body. Left wrist: No acute fracture or dislocation. There is a chronic healed distal radial fracture with residual deformity including impaction resulting in positive ulnar variance and slight widening of the distal radioulnar joint. Subchondral cysts in the distal ulna without definite erosions. Joint spaces are otherwise normal. Mild soft tissue swelling. Right foot: No fracture or dislocation. Mild narrowing of the second metatarsophalangeal joint with subchondral cysts versus mild erosive change in the metatarsal head. Otherwise the joint spaces are normal and no erosions are seen. There is soft tissue swelling, most prominent adjacent to the first metatarsophalangeal and fifth metatarsophalangeal joints and fifth metatarsal base. Left foot: No fracture or dislocation. Mild arthritis at the second metatarsophalangeal joint with mild narrowing. No definite erosions. Otherwise the joint spaces are maintained. Prominent soft tissue swelling including at the and distal aspect of the first toe and fifth metatarsophalangeal joint and fifth metatarsal base. Procedure Note Daniel Lockwood MD - 12/11/2022 PROCEDURE: XR HAND RIGHT 3VW OR MORE, XR FOOT LEFT 3VW OR MORE, XRWRIST RIGHT 3VW OR MORE, XR WRIST LEFT 3VW OR MORE, XR HAND LEFT 3VW OR MORE,XR FOOT RIGHT 3VW OR MORE DATE/TIME OF EXAM: 12/11/2022 11:16 AM CLINICAL INFORMATION: None relevant/not provided if blank. Indication: M05.9: Seropositive rheumatoid arthritis (CMS/HCC) Additional History: COMPARISON: Right and left hand x-rays dated 09/05/2021. Right and left foot x-rays dated 04/20/2021. FINDINGS: Right hand: No fracture or dislocation is present. There is moderate joint space narrowing at the second and third metacarpophalangeal joints with mild erosive changes and moderate subluxation. The degree of subluxation has increased. There is more mild arthritic change at the fourth metacarpophalangeal joint. There are erosions in the base of the fifth metacarpal medially, similar to the prior study. There is mild osteoarthritis at a few interphalangeal joints. There is soft tissue swelling, most prominently adjacent to the second metacarpophalangealjoint and second and fourth finger proximal interphalangeal joints. Left hand: No fracture or dislocation. There is moderate joint space narrowing atthe first through third metacarpophalangeal joints with subluxation and mild erosive changes. There is more mild arthritic change at the fourth metacarpophalangeal joint. There is mild osteoarthritis at multiple interphalangeal joints. There is soft tissue swelling, most prominently adjacent to the first and second metacarpophalangeal joints and second through fourth proximal interphalangeal joints. Right wrist: No fracture or dislocation. Minimal degenerative change at the first carpometacarpal joint. Otherwise the joint spaces are normal. Noerosions of the carpal bones. There is soft tissue swelling. Small radiopacity in the soft tissues between the first and second metacarpals on the oblique view may be a calcification or foreign body. Left wrist: No acute fracture or dislocation. There is a chronic healed distalradial fracture with residual deformity including impaction resulting inpositive ulnar variance and slight widening of the distal radioulnar joint. Subchondral cysts in the distal ulna without definite erosions. Joint spaces are otherwise normal. Mild soft tissue swelling. Right foot: No fracture or dislocation. Mild narrowing of the second metatarsophalangeal joint with subchondral cysts versus mild erosivechange in the metatarsal head. Otherwise the joint spaces are normal and no erosions are seen. There is soft tissue swelling, most prominentadjacent to the first metatarsophalangeal and fifth metatarsophalangeal jointsand fifth metatarsal base. Left foot: No fracture or dislocation. Mild arthritis at the second metatarsophalangeal joint with mild narrowing. No definite erosions. Otherwise the joint spaces are maintained. Prominent soft tissueswelling including at the and distal aspect of the first toe and fifth metatarsophalangeal joint and fifth metatarsal base. IMPRESSION: 1. Right and left hands: Moderate arthritis with subluxation affecting several metacarpal phalangeal joints bilaterally consistent withrheumatoid arthritis. The degree of arthritis has not progressed significantly; the subluxation has mildly worsened. 2. Right wrist: No significant arthritis. 3. Left wrist: Mild arthritic change. Chronic healed distal radial fracture. 4. Right and left feet: Minimal arthritic change at the second metatarsophalangeal joints bilaterally. 5. Soft tissue swelling is demonstrated on all the above studies,including areas of severe soft tissue swelling around the arthritic joints in the hands and feet. > Interpreting Provider: Daniel Lockwood MD on 12/11/2022 11:25 AM Hamilton Quintanilla MD DIAGNOSTIC IMAGING O RDERABLES * XR HAND LEFT 3VW OR MORE (12/11/2022 11:16 AM CDT) Only the most recent of3 resultswithin the time period is included. Anatomical Region Laterality Modality Wrist / Hand Radiographic Janice ging 12/11/2022 11:1 5 AM CDT Impressions 12/11/2022 11:25 AM CDT IMPRESSION: 1. Right and left hands: Moderate arthritis with subluxation affecting several metacarpal phalangeal joints bilaterally consistent with rheumatoid arthritis. The degree of arthritis has not progressed significantly; the subluxation has mildly worsened. 2. Right wrist: No significant arthritis. 3. Left wrist: Mild arthritic change. Chronic healed distal radial fracture. 4. Right and left feet: Minimal arthritic change at the second metatarsophalangeal joints bilaterally. 5. Soft tissue swelling is demonstrated on all the above studies, including areas of severe soft tissue swelling around the arthritic joints in the hands and feet. > Interpreting Provider: Daniel Lockwood MD on 12/11/2022 11:25 AM Narrative 12/11/2022 11:25 AM CDT PROCEDURE: XR HAND RIGHT 3VW OR MORE, XR FOOT LEFT 3VW OR MORE, XR WRIST RIGHT 3VW OR MORE, XR WRIST LEFT 3VW OR MORE, XR HAND LEFT 3VW OR MORE, XR FOOT RIGHT 3VW OR MORE DATE/TIME OF EXAM: 12/11/2022 11:16 AM CLINICAL INFORMATION: None relevant/not provided if blank. Indication: M05.9: Seropositive rheumatoid arthritis (CMS/HCC) Additional History: COMPARISON: Right and left hand x-rays dated 09/05/2021. Right and left foot x-rays dated 04/20/2021. FINDINGS: Right hand: No fracture or dislocation is present. There is moderate joint space narrowing at the second and third metacarpophalangeal joints with mild erosive changes and moderate subluxation. The degree of subluxation has increased. There is more mild arthritic change at the fourth metacarpophalangeal joint. There are erosions in the base of the fifth metacarpal medially, similar to the prior study. There is mild osteoarthritis at a few interphalangeal joints. There is soft tissue swelling, most prominently adjacent to the second metacarpophalangeal joint and second and fourth finger proximal interphalangeal joints. Left hand: No fracture or dislocation. There is moderate joint space narrowing at the first through third metacarpophalangeal joints with subluxation and mild erosive changes. There is more mild arthritic change at the fourth metacarpophalangeal joint. There is mild osteoarthritis at multiple interphalangeal joints. There is soft tissue swelling, most prominently adjacent to the first and second metacarpophalangeal joints and second through fourth proximal interphalangeal joints. Right wrist: No fracture or dislocation. Minimal degenerative change at the first carpometacarpal joint. Otherwise the joint spaces are normal. No erosions of the carpal bones. There is soft tissue swelling. Small radiopacity in the soft tissues between the first and second metacarpals on the oblique view may be a calcification or foreign body. Left wrist: No acute fracture or dislocation. There is a chronic healed distal radial fracture with residual deformity including impaction resulting in positive ulnar variance and slight widening of the distal radioulnar joint. Subchondral cysts in the distal ulna without definite erosions. Joint spaces are otherwise normal. Mild soft tissue swelling. Right foot: No fracture or dislocation. Mild narrowing of the second metatarsophalangeal joint with subchondral cysts versus mild erosive change in the metatarsal head. Otherwise the joint spaces are normal and no erosions are seen. There is soft tissue swelling, most prominent adjacent to the first metatarsophalangeal and fifth metatarsophalangeal joints and fifth metatarsal base. Left foot: No fracture or dislocation. Mild arthritis at the second metatarsophalangeal joint with mild narrowing. No definite erosions. Otherwise the joint spaces are maintained. Prominent soft tissue swelling including at the and distal aspect of the first toe and fifth metatarsophalangeal joint and fifth metatarsal base. Procedure Note Daniel Lockwood MD - 12/11/2022 PROCEDURE: XR HAND RIGHT 3VW OR MORE, XR FOOT LEFT 3VW OR MORE, XRWRIST RIGHT 3VW OR MORE, XR WRIST LEFT 3VW OR MORE, XR HAND LEFT 3VW OR MORE,XR FOOT RIGHT 3VW OR MORE DATE/TIME OF EXAM: 12/11/2022 11:16 AM CLINICAL INFORMATION: None relevant/not provided if blank. Indication: M05.9: Seropositive rheumatoid arthritis (CMS/HCC) Additional History: COMPARISON: Right and left hand x-rays dated 09/05/2021. Right and left foot x-rays dated 04/20/2021. FINDINGS: Right hand: No fracture or dislocation is present. There is moderate joint space narrowing at the second and third metacarpophalangeal joints with mild erosive changes and moderate subluxation. The degree of subluxation has increased. There is more mild arthritic change at the fourth metacarpophalangeal joint. There are erosions in the base of the fifth metacarpal medially, similar to the prior study. There is mild osteoarthritis at a few interphalangeal joints. There is soft tissue swelling, most prominently adjacent to the second metacarpophalangealjoint and second and fourth finger proximal interphalangeal joints. Left hand: No fracture or dislocation. There is moderate joint space narrowing atthe first through third metacarpophalangeal joints with subluxation and mild erosive changes. There is more mild arthritic change at the fourth metacarpophalangeal joint. There is mild osteoarthritis at multiple interphalangeal joints. There is soft tissue swelling, most prominently adjacent to the first and second metacarpophalangeal joints and second through fourth proximal interphalangeal joints. Right wrist: No fracture or dislocation. Minimal degenerative change at the first carpometacarpal joint. Otherwise the joint spaces are normal. Noerosions of the carpal bones. There is soft tissue swelling. Small radiopacity in the soft tissues between the first and second metacarpals on the oblique view may be a calcification or foreign body. Left wrist: No acute fracture or dislocation. There is a chronic healed distalradial fracture with residual deformity including impaction resulting inpositive ulnar variance and slight widening of the distal radioulnar joint. Subchondral cysts in the distal ulna without definite erosions. Joint spaces are otherwise normal. Mild soft tissue swelling. Right foot: No fracture or dislocation. Mild narrowing of the second metatarsophalangeal joint with subchondral cysts versus mild erosivechange in the metatarsal head. Otherwise the joint spaces are normal and no erosions are seen. There is soft tissue swelling, most prominentadjacent to the first metatarsophalangeal and fifth metatarsophalangeal jointsand fifth metatarsal base. Left foot: No fracture or dislocation. Mild arthritis at the second metatarsophalangeal joint with mild narrowing. No definite erosions. Otherwise the joint spaces are maintained. Prominent soft tissueswelling including at the and distal aspect of the first toe and fifth metatarsophalangeal joint and fifth metatarsal base. IMPRESSION: 1. Right and left hands: Moderate arthritis with subluxation affecting several metacarpal phalangeal joints bilaterally consistent withrheumatoid arthritis. The degree of arthritis has not progressed significantly; the subluxation has mildly worsened. 2. Right wrist: No significant arthritis. 3. Left wrist: Mild arthritic change. Chronic healed distal radial fracture. 4. Right and left feet: Minimal arthritic change at the second metatarsophalangeal joints bilaterally. 5. Soft tissue swelling is demonstrated on all the above studies,including areas of severe soft tissue swelling around the arthritic joints in the hands and feet. > Interpreting Provider: Daniel Lockwood MD on 12/11/2022 11:25 AM Hamilton Quintanilla MD DIAGNOSTIC IMAGING O RDERABLES * XR WRIST RIGHT 3VW OR MORE (12/11/2022 11:16 AM CDT) Anatomical Region Laterality Modality Wrist / Hand Radiographic Janice ging 12/11/2022 11:1 5 AM CDT Impressions 12/11/2022 11:25 AM CDT IMPRESSION: 1. Right and left hands: Moderate arthritis with subluxation affecting several metacarpal phalangeal joints bilaterally consistent with rheumatoid arthritis. The degree of arthritis has not progressed significantly; the subluxation has mildly worsened. 2. Right wrist: No significant arthritis. 3. Left wrist: Mild arthritic change. Chronic healed distal radial fracture. 4. Right and left feet: Minimal arthritic change at the second metatarsophalangeal joints bilaterally. 5. Soft tissue swelling is demonstrated on all the above studies, including areas of severe soft tissue swelling around the arthritic joints in the hands and feet. > Interpreting Provider: Daniel Lockwood MD on 12/11/2022 11:25 AM Narrative 12/11/2022 11:25 AM CDT PROCEDURE: XR HAND RIGHT 3VW OR MORE, XR FOOT LEFT 3VW OR MORE, XR WRIST RIGHT 3VW OR MORE, XR WRIST LEFT 3VW OR MORE, XR HAND LEFT 3VW OR MORE, XR FOOT RIGHT 3VW OR MORE DATE/TIME OF EXAM: 12/11/2022 11:16 AM CLINICAL INFORMATION: None relevant/not provided if blank. Indication: M05.9: Seropositive rheumatoid arthritis ([facility]) Additional History: COMPARISON: Right and left hand x-rays dated 09/05/2021. Right and left foot x-rays dated 04/20/2021. FINDINGS: Right hand: No fracture or dislocation is present. There is moderate joint space narrowing at the second and third metacarpophalangeal joints with mild erosive changes and moderate subluxation. The degree of subluxation has increased. There is more mild arthritic change at the fourth metacarpophalangeal joint. There are erosions in the base of the fifth metacarpal medially, similar to the prior study. There is mild osteoarthritis at a few interphalangeal joints. There is soft tissue swelling, most prominently adjacent to the second metacarpophalangeal joint and second and fourth finger proximal interphalangeal joints. Left hand: No fracture or dislocation. There is moderate joint space narrowing at the first through third metacarpophalangeal joints with subluxation and mild erosive changes. There is more mild arthritic change at the fourth metacarpophalangeal joint. There is mild osteoarthritis at multiple interphalangeal joints. There is soft tissue swelling, most prominently adjacent to the first and second metacarpophalangeal joints and second through fourth proximal interphalangeal joints. Right wrist: No fracture or dislocation. Minimal degenerative change at the first carpometacarpal joint. Otherwise the joint spaces are normal. No erosions of the carpal bones. There is soft tissue swelling. Small radiopacity in the soft tissues between the first and second metacarpals on the oblique view may be a calcification or foreign body. Left wrist: No acute fracture or dislocation. There is a chronic healed distal radial fracture with residual deformity including impaction resulting in positive ulnar variance and slight widening of the distal radioulnar joint. Subchondral cysts in the distal ulna without definite erosions. Joint spaces are otherwise normal. Mild soft tissue swelling. Right foot: No fracture or dislocation. Mild narrowing of the second metatarsophalangeal joint with subchondral cysts versus mild erosive change in the metatarsal head. Otherwise the joint spaces are normal and no erosions are seen. There is soft tissue swelling, most prominent adjacent to the first metatarsophalangeal and fifth metatarsophalangeal joints and fifth metatarsal base. Left foot: No fracture or dislocation. Mild arthritis at the second metatarsophalangeal joint with mild narrowing. No definite erosions. Otherwise the joint spaces are maintained. Prominent soft tissue swelling including at the and distal aspect of the first toe and fifth metatarsophalangeal joint and fifth metatarsal base. Procedure Note Daniel Lockwood MD - 12/11/2022 PROCEDURE: XR HAND RIGHT 3VW OR MORE, XR FOOT LEFT 3VW OR MORE, XRWRIST RIGHT 3VW OR MORE, XR WRIST LEFT 3VW OR MORE, XR HAND LEFT 3VW OR MORE,XR FOOT RIGHT 3VW OR MORE DATE/TIME OF EXAM: 12/11/2022 11:16 AM CLINICAL INFORMATION: None relevant/not provided if blank. Indication: M05.9: Seropositive rheumatoid arthritis (CMS/HCC) Additional History: COMPARISON: Right and left hand x-rays dated 09/05/2021. Right and left foot x-rays dated 04/20/2021. FINDINGS: Right hand: No fracture or dislocation is present. There is moderate joint space narrowing at the second and third metacarpophalangeal joints with mild erosive changes and moderate subluxation. The degree of subluxation has increased. There is more mild arthritic change at the fourth metacarpophalangeal joint. There are erosions in the base of the fifth metacarpal medially, similar to the prior study. There is mild osteoarthritis at a few interphalangeal joints. There is soft tissue swelling, most prominently adjacent to the second metacarpophalangealjoint and second and fourth finger proximal interphalangeal joints. Left hand: No fracture or dislocation. There is moderate joint space narrowing atthe first through third metacarpophalangeal joints with subluxation and mild erosive changes. There is more mild arthritic change at the fourth metacarpophalangeal joint. There is mild osteoarthritis at multiple interphalangeal joints. There is soft tissue swelling, most prominently adjacent to the first and second metacarpophalangeal joints and second through fourth proximal interphalangeal joints. Right wrist: No fracture or dislocation. Minimal degenerative change at the first carpometacarpal joint. Otherwise the joint spaces are normal. Noerosions of the carpal bones. There is soft tissue swelling. Small radiopacity in the soft tissues between the first and second metacarpals on the oblique view may be a calcification or foreign body. Left wrist: No acute fracture or dislocation. There is a chronic healed distalradial fracture with residual deformity including impaction resulting inpositive ulnar variance and slight widening of the distal radioulnar joint. Subchondral cysts in the distal ulna without definite erosions. Joint spaces are otherwise normal. Mild soft tissue swelling. Right foot: No fracture or dislocation. Mild narrowing of the second metatarsophalangeal joint with subchondral cysts versus mild erosivechange in the metatarsal head. Otherwise the joint spaces are normal and no erosions are seen. There is soft tissue swelling, most prominentadjacent to the first metatarsophalangeal and fifth metatarsophalangeal jointsand fifth metatarsal base. Left foot: No fracture or dislocation. Mild arthritis at the second metatarsophalangeal joint with mild narrowing. No definite erosions. Otherwise the joint spaces are maintained. Prominent soft tissueswelling including at the and distal aspect of the first toe and fifth metatarsophalangeal joint and fifth metatarsal base. IMPRESSION: 1. Right and left hands: Moderate arthritis with subluxation affecting several metacarpal phalangeal joints bilaterally consistent withrheumatoid arthritis. The degree of arthritis has not progressed significantly; the subluxation has mildly worsened. 2. Right wrist: No significant arthritis. 3. Left wrist: Mild arthritic change. Chronic healed distal radial fracture. 4. Right and left feet: Minimal arthritic change at the second metatarsophalangeal joints bilaterally. 5. Soft tissue swelling is demonstrated on all the above studies,including areas of severe soft tissue swelling around the arthritic joints in the hands and feet. > Interpreting Provider: Daniel Lockwood MD on 12/11/2022 11:25 AM Hamilton Quintanilla MD DIAGNOSTIC IMAGING O RDERABLES * XR WRIST LEFT 3VW OR MORE (12/11/2022 11:16 AM CDT) Anatomical Region Laterality Modality Wrist / Hand Radiographic Janice ging 12/11/2022 11:1 5 AM CDT Impressions 12/11/2022 11:25 AM CDT IMPRESSION: 1. Right and left hands: Moderate arthritis with subluxation affecting several metacarpal phalangeal joints bilaterally consistent with rheumatoid arthritis. The degree of arthritis has not progressed significantly; the subluxation has mildly worsened. 2. Right wrist: No significant arthritis. 3. Left wrist: Mild arthritic change. Chronic healed distal radial fracture. 4. Right and left feet: Minimal arthritic change at the second metatarsophalangeal joints bilaterally. 5. Soft tissue swelling is demonstrated on all the above studies, including areas of severe soft tissue swelling around the arthritic joints in the hands and feet. > Interpreting Provider: Daniel Lockwood MD on 12/11/2022 11:25 AM Narrative 12/11/2022 11:25 AM CDT PROCEDURE: XR HAND RIGHT 3VW OR MORE, XR FOOT LEFT 3VW OR MORE, XR WRIST RIGHT 3VW OR MORE, XR WRIST LEFT 3VW OR MORE, XR HAND LEFT 3VW OR MORE, XR FOOT RIGHT 3VW OR MORE DATE/TIME OF EXAM: 12/11/2022 11:16 AM CLINICAL INFORMATION: None relevant/not provided if blank. Indication: M05.9: Seropositive rheumatoid arthritis (CMS/HCC) Additional History: COMPARISON: Right and left hand x-rays dated 09/05/2021. Right and left foot x-rays dated 04/20/2021. FINDINGS: Right hand: No fracture or dislocation is present. There is moderate joint space narrowing at the second and third metacarpophalangeal joints with mild erosive changes and moderate subluxation. The degree of subluxation has increased. There is more mild arthritic change at the fourth metacarpophalangeal joint. There are erosions in the base of the fifth metacarpal medially, similar to the prior study. There is mild osteoarthritis at a few interphalangeal joints. There is soft tissue swelling, most prominently adjacent to the second metacarpophalangeal joint and second and fourth finger proximal interphalangeal joints. Left hand: No fracture or dislocation. There is moderate joint space narrowing at the first through third metacarpophalangeal joints with subluxation and mild erosive changes. There is more mild arthritic change at the fourth metacarpophalangeal joint. There is mild osteoarthritis at multiple interphalangeal joints. There is soft tissue swelling, most prominently adjacent to the first and second metacarpophalangeal joints and second through fourth proximal interphalangeal joints. Right wrist: No fracture or dislocation. Minimal degenerative change at the first carpometacarpal joint. Otherwise the joint spaces are normal. No erosions of the carpal bones. There is soft tissue swelling. Small radiopacity in the soft tissues between the first and second metacarpals on the oblique view may be a calcification or foreign body. Left wrist: No acute fracture or dislocation. There is a chronic healed distal radial fracture with residual deformity including impaction resulting in positive ulnar variance and slight widening of the distal radioulnar joint. Subchondral cysts in the distal ulna without definite erosions. Joint spaces are otherwise normal. Mild soft tissue swelling. Right foot: No fracture or dislocation. Mild narrowing of the second metatarsophalangeal joint with subchondral cysts versus mild erosive change in the metatarsal head. Otherwise the joint spaces are normal and no erosions are seen. There is soft tissue swelling, most prominent adjacent to the first metatarsophalangeal and fifth metatarsophalangeal joints and fifth metatarsal base. Left foot: No fracture or dislocation. Mild arthritis at the second metatarsophalangeal joint with mild narrowing. No definite erosions. Otherwise the joint spaces are maintained. Prominent soft tissue swelling including at the and distal aspect of the first toe and fifth metatarsophalangeal joint and fifth metatarsal base. Procedure Note Daniel Lockwood MD - 12/11/2022 PROCEDURE: XR HAND RIGHT 3VW OR MORE, XR FOOT LEFT 3VW OR MORE, XRWRIST RIGHT 3VW OR MORE, XR WRIST LEFT 3VW OR MORE, XR HAND LEFT 3VW OR MORE,XR FOOT RIGHT 3VW OR MORE DATE/TIME OF EXAM: 12/11/2022 11:16 AM CLINICAL INFORMATION: None relevant/not provided if blank. Indication: M05.9: Seropositive rheumatoid arthritis (CMS/HCC) Additional History: COMPARISON: Right and left hand x-rays dated 09/05/2021. Right and left foot x-rays dated 04/20/2021. FINDINGS: Right hand: No fracture or dislocation is present. There is moderate joint space narrowing at the second and third metacarpophalangeal joints with mild erosive changes and moderate subluxation. The degree of subluxation has increased. There is more mild arthritic change at the fourth metacarpophalangeal joint. There are erosions in the base of the fifth metacarpal medially, similar to the prior study. There is mild osteoarthritis at a few interphalangeal joints. There is soft tissue swelling, most prominently adjacent to the second metacarpophalangealjoint and second and fourth finger proximal interphalangeal joints. Left hand: No fracture or dislocation. There is moderate joint space narrowing atthe first through third metacarpophalangeal joints with subluxation and mild erosive changes. There is more mild arthritic change at the fourth metacarpophalangeal joint. There is mild osteoarthritis at multiple interphalangeal joints. There is soft tissue swelling, most prominently adjacent to the first and second metacarpophalangeal joints and second through fourth proximal interphalangeal joints. Right wrist: No fracture or dislocation. Minimal degenerative change at the first carpometacarpal joint. Otherwise the joint spaces are normal. Noerosions of the carpal bones. There is soft tissue swelling. Small radiopacity in the soft tissues between the first and second metacarpals on the oblique view may be a calcification or foreign body. Left wrist: No acute fracture or dislocation. There is a chronic healed distalradial fracture with residual deformity including impaction resulting inpositive ulnar variance and slight widening of the distal radioulnar joint. Subchondral cysts in the distal ulna without definite erosions. Joint spaces are otherwise normal. Mild soft tissue swelling. Right foot: No fracture or dislocation. Mild narrowing of the second metatarsophalangeal joint with subchondral cysts versus mild erosivechange in the metatarsal head. Otherwise the joint spaces are normal and no erosions are seen. There is soft tissue swelling, most prominentadjacent to the first metatarsophalangeal and fifth metatarsophalangeal jointsand fifth metatarsal base. Left foot: No fracture or dislocation. Mild arthritis at the second metatarsophalangeal joint with mild narrowing. No definite erosions. Otherwise the joint spaces are maintained. Prominent soft tissueswelling including at the and distal aspect of the first toe and fifth metatarsophalangeal joint and fifth metatarsal base. IMPRESSION: 1. Right and left hands: Moderate arthritis with subluxation affecting several metacarpal phalangeal joints bilaterally consistent withrheumatoid arthritis. The degree of arthritis has not progressed significantly; the subluxation has mildly worsened. 2. Right wrist: No significant arthritis. 3. Left wrist: Mild arthritic change. Chronic healed distal radial fracture. 4. Right and left feet: Minimal arthritic change at the second metatarsophalangeal joints bilaterally. 5. Soft tissue swelling is demonstrated on all the above studies,including areas of severe soft tissue swelling around the arthritic joints in the hands and feet. > Interpreting Provider: Daniel Lockwood MD on 12/11/2022 11:25 AM Hamilton Quintanilla MD DIAGNOSTIC IMAGING O RDERABLES * XR CERVICAL SPINE 4 OR 5VW (12/11/2022 11:16 AM CDT) Anatomical Region Laterality Modality Spine Radiographic Janice ging 12/11/2022 4:13 PM CDT Impressions 12/13/2022 11:00 AM CDT IMPRESSION: Mild subluxation of C1 on C2 with flexion. Moderate multilevel degenerative disc and joint disease. Report dictated by Álvaro Blanco MD, PhD (vice president quality). ITrina MD have personally reviewed and interpreted this examination/study. > Interpreting Provider: Trina Alonso MD on 12/13/2022 11:00 AM Narrative 12/13/2022 11:00 AM CDT PROCEDURE: XR CERVICAL SPINE 4 OR 5VW, DATE/TIME OF EXAM: 12/11/2022 11:16 AM, LOCATION [facility] INDICATION: M05.9: Seropositive rheumatoid arthritis ([facility]) ADDITIONAL CLINICAL INFORMATION: Ordering Provider Reason For Exam: Technologist Note: Additional: COMPARISON: None. FINDINGS: Alignment is normal in neutral position. There is mild reversal of the cervical lordosis in the lower spine. With flexion, the predental interval increases to 3 mm (from 0) and reduces completely with extension. Slight anterior subluxation with flexion occurs at C2-C3, C3-C4, and C4-C5 which can be physiologic. There is moderate disc space narrowing and osteophyte formation between C5 and T1. Facet arthropathy is seen, greatest in the mid cervical spine. There is no fracture or compression deformity. Prevertebral soft tissues are normal. Procedure Note Trina Alonso MD - 12/13/2022 PROCEDURE: XR CERVICAL SPINE 4 OR 5VW, DATE/TIME OF EXAM: 1:16 AM, LOCATION [facility] INDICATION: M05.9: Seropositive rheumatoid arthritis ([facility]) ADDITIONAL CLINICAL INFORMATION: Ordering Provider Reason For Exam: Technologist Note: Additional: COMPARISON: None. FINDINGS: Alignment is normal in neutral position. There is mild reversal of the cervical lordosis in the lower spine. With flexion, the predentalinterval increases to 3 mm (from 0) and reduces completely with extension. Slight anterior subluxation with flexion occurs at C2-C3, C3-C4, and C4-L6dwaym can be physiologic. There is moderate disc space narrowing andosteophyte formation between C5 and T1. Facet arthropathy is seen, greatest in themid cervical spine. There is no fracture or compression deformity.Prevertebral soft tissues are normal. IMPRESSION: Mild subluxation of C1 on C2 with flexion. Moderate multilevel degenerative disc and joint disease. Report dictated by Álvaro Blanco MD, PhD (vice president quality). Trina Blas MD have personally reviewed and interpreted this examination/study. > Interpreting Provider: Trina Alonso MD on 12/13/2022 11:00 AM Hamilton Quintanilla MD DIAGNOSTIC IMAGING O RDERABLES * PET CT WHOLE BODY (08/28/2022 8:05 AM CDT) Anatomical Region Laterality Modality Positron Emissio n Tomography (PET) 08/28/2022 7:59 AM CDT Impressions 08/28/2022 4:46 PM CDT IMPRESSION: 1.Multiple pulmonary nodules measuring up to 2.1 cm with no or minimal FDG uptake. This is favored to be a benign process, however, malignancy is not excluded. Short-term follow-up or tissue sampling is recommended. 2.Periarticular symmetric inflammatory changes in multiple joint with enthesopathy are noted which are not in typical location for osteoarthritis and suggestion of underlying inflammatory arthropathy. Rheumatologic consultation is recommended. The report was drafted by Tonia Cordero MD (Shot Hole Driller). > Dictated by Tonia Cordero (Shot Hole Driller) 08/28/2022 7:59 AM I, Efrain Lau MD have personally reviewed and interpreted this examination/study. > Interpreting Provider: Efrain Lau MD on 08/28/2022 4:46 PM Narrative 08/28/2022 4:46 PM CDT PROCEDURE: PET CT WHOLE BODY DATE/TIME OF EXAM: 08/28/2022 8:05 AM CLINICAL INFORMATION: None relevant/not provided if blank. Indication: R91.1: Lung nodule COMPARISON: None. Referring Physician: Dr. Mustapha Easton HISTORY: 67-year-old male with multiple pulmonary nodules seen on outside hospital report CT with contrast category 4B. Evaluate for initial treatment strategy. TECHNIQUE: 6.2 mCi of F-18 FDG by IV in the left antecubital. PET/CT image acquisition from top of the head to the feet after approximately 60 minutes post-injection with the CT being low-dose, non-contrast. No separate report for the CT was used for attenuation correction and anatomic localization. Blood glucose level at the time of injection was 121 mg/dl. Patient's BMI is 18.86 kg/m. FINDINGS: For reference, SUVmax of liver is 2.6. Head and neck: There is physiological FDG activity throughout the brain parenchyma. No abnormal FDG focus is present. No hypermetabolic or enlarged cervical lymph node is identified. Chest: A 1.1 x 1.8 cm left upper lobe solid subpleural nodule with minimal FDG uptake with SUV max of 1.8. There is a 2.1 x 11.7 cm subpleural solid nodule in the right upper lobe (inferior aspects of the anterior segment) with minimal FDG uptake with SUV max of 1.6. There is a 2 x 1.2 cm solid subpleural nodule in the right lower lobe with mild FDG activity with SUV max of 2.3 with adjacent mild pleural thickening. There is linear opacity in the right lung base with no significant FDG. There are a few other tiny pulmonary nodules in the right lung measuring up to 0.5 cm which are too small to be characterize on PET. There is mild emphysematous changes of the lungs. There is no evidence of pneumothorax. The heart size is normal. No pericardial effusion is present. Calcification of the articular valve is seen. Minimal atherosclerotic calcification of the aorta is seen. Benign-appearing right axillary lymph nodes are seen. There are a few left axillary lymph nodes with mild FDG uptake with SUV max of 2.9 with a normal fatty hilum likely related to radiotracer infiltration which is projected in the left arm. No hypermetabolic or enlarged mediastinal, axillary, or supraclavicular lymphadenopathy is seen. Abdomen and pelvis: Within the limitations of a noncontrast examination, the visceral abdominal organs are unremarkable. There is normal FDG activity throughout the small and large bowel. No free air or free fluid is identified within the abdomen. There is no hypermetabolic or enlarged abdominal or pelvic lymphadenopathy. Atherosclerotic calcification of the abdominal aorta and its branches is identified. There is prostatomegaly Musculoskeletal: No suspicious lytic or blastic lesions are identified. No abnormal FDG uptake is seen within the osseous structures. Multilevel degenerative changes throughout the spinal column are identified. Inflammatory changes of the right shoulder are seen. Inflammatory changes with SUV uptake is noted in bilateral wrist, carpometacarpal and interphalangeal joints. There is increased radiotracer uptake along the inferior aspect of the bilateral patella and along bilateral lateral knee joints and bilateral heel, surrounding the proximal fifth metatarsals and interphalangeal joints and also first interphalangeal joints. Procedure Note Efrani Lau MD - 08/28/2022 PROCEDURE: PET CT WHOLE BODY DATE/TIME OF EXAM: 08/28/2022 8:05 AM CLINICAL INFORMATION: None relevant/not provided if blank. Indication: R91.1: Lung nodule COMPARISON: None. Referring Physician: Dr. Mustapha Easton HISTORY: 67-year-[facility]B. Evaluate for initial treatment strategy. TECHNIQUE: 6.2 mCi of F-18 FDG by IV in the left antecubital. PET/CTimage acquisition from top of the head to the feet after approximately 60 minutes post-injection with the CT being low-dose, non-contrast. No separate report for the CT was used for attenuation correction andanatomic localization. Blood glucose level at the time of injection was 121mg/dl. Patient's BMI is 18.86 kg/m. FINDINGS: For reference, SUVmax of liver is 2.6. Head and neck: There is physiological FDG activity throughout the brain parenchyma. No abnormal FDG focus is present. No hypermetabolic or enlarged cervicallymph node is identified. Chest: A 1.1 x 1.8 cm left upper lobe solid subpleural nodule with minimal FDG uptake with SUV max of 1.8. There is a 2.1 x 11.7 cm subpleural solid nodule in the right upper lobe (inferior aspects of the anteriorsegment) with minimal FDG uptake with SUV max of 1.6. There is a 2 x 1.2 cm solid subpleural nodule in the right lower lobe with mild FDG activity withSUV max of 2.3 with adjacent mild pleural thickening. There is linear opacity in the right lung base with no significant FDG. There are a few other tiny pulmonary nodules in the right lung measuringup to 0.5 cm which are too small to be characterize on PET. There is mild emphysematous changes of the lungs. There is no evidenceof pneumothorax. The heart size is normal. No pericardial effusion is present.Calcification of the articular valve is seen. Minimal atherosclerotic calcification of the aorta is seen. Benign-appearing right axillary lymph nodes are seen. There are a few left axillary lymph nodes with mild FDG uptake with SUVmax of 2.9 with a normal fatty hilum likely related to radiotracerinfiltration which is projected in the left arm. No hypermetabolic or enlarged mediastinal, axillary, or supraclavicular lymphadenopathy is seen. Abdomen and pelvis: Within the limitations of a noncontrast examination, the visceralabdominal organs are unremarkable. There is normal FDG activity throughout thesmall and large bowel. No free air or free fluid is identified within the abdomen. There is no hypermetabolic or enlarged abdominal or pelvic lymphadenopathy. Atherosclerotic calcification of the abdominal aorta and its branches is identified. There is prostatomegaly Musculoskeletal: No suspicious lytic or blastic lesions are identified. No abnormal FDG uptake is seen within the osseous structures. Multilevel degenerative changes throughout the spinal column are identified. Inflammatory changes of the right shoulder are seen. Inflammatorychanges with SUV uptake is noted in bilateral wrist, carpometacarpal and interphalangeal joints. There is increased radiotracer uptake along the inferior aspect of the bilateral patella and along bilateral lateralknee joints and bilateral heel, surrounding the proximal fifth metatarsalsand interphalangeal joints and also first interphalangeal joints. IMPRESSION: 1.Multiple pulmonary nodules measuring up to 2.1 cm with no or minimalFDG uptake. This is favored to be a benign process, however, malignancy isnot excluded. Short-term follow-up or tissue sampling is recommended. 2.Periarticular symmetric inflammatory changes in multiple joint with enthesopathy are noted which are not in typical location forosteoarthritis and suggestion of underlying inflammatory arthropathy. Rheumatologic consultation is recommended. The report was drafted by Tonia Cordero MD (Shot Hole Driller). > Dictated by Tonia Cordero (Shot Hole Driller) 08/28/2022 7:59AM I, Efrain Lau MD have personally reviewed and interpreted this examination/study. > Interpreting Provider: Efrain Lau MD on 08/28/2022 4:46 PM Mustapha Easton MD [place] ORDERABLES * (ABNORMAL) GLUCOSE SCREEN - POCT (IP) [facility] (08/28/2022 6:33 AM CDT) Glucose WB/POC 121(A) 70 - 115 mg/dL [facility] POCT TESTING Blood BLOOD SPECIMEN / Unknown 08/28/2022 6:33 AM CDT Mustapha Easton MD LAB - POINT OF CARE ORDERABLES [facility] POCT TESTING [address] [place] [address], [place] [phone] * [place] [facility] PVR U&/BLADD CAPCTY US NON (12/14/2021 1:58 PM CDT) Narrative Zuri Rust LPN - 12/14/2021 1:58 PM CDT Zuri Rust LPN 12/14/2021 2:00 PM PVR= 71 ML Sharlene Moss APRN-WIRE FENCE BUILDER PROCEDURE/MINOR SURGICAL ORDERABLES * URINALYSIS AUTO - POINT OF CARE (AMB) U (12/14/2021) Only the most recent of3 resultswithin the time period is included. Glucose UA neg Bilirubin UA POCT neg Ketones UA POCT 5 mg/dL Specific Cataldo UA 1.025 Blood Urine POCT neg pH UA 6.5 Protein UA neg Urobilinogen UA 0.2 mg/dL Nitrite UA neg WBC UA neg Urine URINE / Unknown 12/14/2021 Sharlene Moss APRN-WIRE FENCE BUILDER LAB - POINT OF CARE ORDERABLES * ALT (11/21/2021 12:30 PM CDT) Pathologist [facility] ALT 29 5 - 55 U/L 11/21/2021 1:43 PM CDT [facility] Blood BLOOD SPECIMEN / Unknown Lab Venipuncture / Unknown 11/21/2021 12:30 PM CDT 11/21/2021 1:07 PM CDT Hamilton Quintanilla MD LAB - CHEMISTRY MIHIR DUBOSE [facility] [address] [place] [address], [place] [phone] * AST BLOOD (11/21/2021 12:30 PM CDT) AST 30 5 - 34 U/L 11/21/2021 1:43 PM CDT [facility] Blood BLOOD SPECIMEN / Unknown Lab Venipuncture / Unknown 11/21/2021 12:30 PM CDT 11/21/2021 1:07 PM CDT Hamilton Quintanilla MD LAB - CHEMISTRY MIHIR DUBOSE [facility] [address] [place] [id number], [place] [phone] * CREATININE BLOOD (11/21/2021 12:30 PM CDT) Creatinine 0.75 0.71 - 1.16 mg/dL 11/21/2021 1:43 PM CDT [facility] eGFR by CKD-EPI >90 >=90 mL/min/1.7 3 m2 11/21/2021 1:43 PM CDT [facility] Blood BLOOD SPECIMEN / Unknown Lab Venipuncture / Unknown 11/21/2021 12:30 PM CDT 11/21/2021 1:07 PM CDT Hamilton Quintanilla MD LAB - CHEMISTRY MIHIR DUBOSE Performing Organization Address City/[facility]/ZIP Co de Phone Number [address] [address], [place] [phone] * (ABNORMAL) BUN (11/21/2021 12:30 PM CDT) BUN 27(H) 7 - 26 mg/dL 11/21/2021 1:43 PM CDT [facility] Blood BLOOD SPECIMEN / Unknown Lab Venipuncture / Unknown 11/21/2021 12:30 PM CDT 11/21/2021 1:07 PM CDT Hamilton Quintanilla MD LAB - CHEMISTRY MIHIR DUBOSE [address] [address], [place] [phone] * [place] PVR U&/BLADD CAPCTY US NON (09/21/2021 3:25 PM CDT) Narrative Shruti Toscano MA - 09/21/2021 3:25 PM CDT Shruti Toscano MA 09/21/2021 3:28 PM PVR=25ML Sharlene Moss INSERT OPERATOR-WIRE FENCE BUILDER PROCEDURE/MINOR SURGICAL ORDERABLES * (ABNORMAL) URINALYSIS W/MICROSCOPIC NO CULTURE (08/24/2021 12:21 PM CDT) Color UA Straw Straw, Yellow 08/24/2021 12:50 PM [facility] Clarity UA Clear Clear 08/24/2021 12:50 PM [facility] Specific Cataldo UA 1.002(L) 1.005 - 1.030 08/24/2021 12:50 PM [facility] pH UA 7.0 5.0 - 8.0 pH 08/24/2021 12:50 PM [facility] Protein UA Negative Negative 08/24/2021 12:50 PM [facility] Glucose UA Negative Negative 08/24/2021 12:50 PM [facility] Ketone UA Negative Negative 08/24/2021 12:50 PM [facility] Bilirubin UA Negative Negative 08/24/2021 12:50 PM [facility] Blood UA Negative Negative 08/24/2021 12:50 PM [facility] Nitrite UA Negative Negative 08/24/2021 12:50 PM [facility] Leukocyte Esterase Negative Negative 08/24/2021 12:50 PM [facility] Urobilinogen UA Negative Negative mg/dL 08/24/2021 12:50 PM [facility] RBC UA None Seen None Seen, 0-2, 3-5 /HPF 08/24/2021 12:50 PM [facility] WBC UA None Seen None Seen, 0-5 /HPF 08/24/2021 12:50 PM [facility] Squamous Epithelial Cells UA None Seen None Seen, 0-2, 3-5 /HPF 08/24/2021 12:50 PM [facility] Urine URINE SPECIMEN OBTAINED BY CLEAN CATCH PROCEDURE / Unknown Collection / Unknown 08/24/2021 12:21 PM CDT 08/24/2021 12:40 PM CDT Narrative [facility] - 08/24/2021 12:50 PM CDT Sharlene Moss INSERT OPERATOR-WIRE FENCE BUILDER LAB - URINALYSI S ORDERABLES [facility] [address] [place] [address], [facility] [phone] * (ABNORMAL) PSA FREE + TOTAL PANEL (08/24/2021 12:21 PM CDT) PSA Total 4.2(H) 0.0 - 4.0 ng/mL 08/24/2021 1:32 PM CDT [facility] PSA Free 0.78(H) 0.00 - 0.50 ng/mL 08/24/2021 1:32 PM T [facility] PSA % Free 19 See Comment % 08/24/2021 1:32 PM T [facility] Comment: [facility] uses the [employer]iz Corrugator method for Total and Free PSA measurements. Measurements obtained with different assay methods should not be used interchangeably. Patients with normal Digital Rectal Exam (ОЛЬГА) results and Total PSA results of 4.0 - 10.0 ng/mL represent a diagnostic jacobs zone. The decision of whether or not to perform a biopsy should not be based on the value of Free and/or Total PSA alone. Distribution of [employer] % Free PSA Values for specimens with [employer] Total PSA values between 4.0 and 10.0 ng/mL: % Free PSA Ranges <10.0 10.0-15.0 15.0-20.0 20.0-26.0 >26.0 Number of ----- --------- --------- --------- ----- Subjects Biopsy --------- ------ Negative 307 9.4 22.5 25.4 24.8 17.9 Positive 123 27.6 30.9 17.9 15.4 8.1 PSA % Free 08/24/2021 1:32 PM T [facility] Blood BLOOD SPECIMEN / Unknown Lab Venipuncture / Unknown 08/24/2021 12:21 PM CDT 08/24/2021 12:44 PM CDT Sharlene THAKKAR LAB - CHEMISTRY ORDERABLES Performing Organization Address [facility]/ZIP Co de Phone Number [facility] [address] [place] [address], [facility] [phone] * [place] M[place] PVR U&/BLADD CAPCTY US NON (08/24/2021 11:49 AM CDT) Narrative Deann Carnes RN - 08/24/2021 11:49 AM CDT Deann Carnes RN 08/24/2021 11:49 AM Bladder scan completed. 130 ml post void residual. Sharlene THAKKAR PROCEDURE/MINOR SURGICAL ORDERABLES * VITAMIN D 25-HYDROXY (04/20/2021 3:59 PM [facility]) Pathologist [facility] Vitamin D, 25 Hydroxy 55.0 30.0 - 80.0 ng/mL 04/20/2021 5:42 PM [employer] [employer] Comment: The recommendations for 25-Hydroxy Vitamin D clinical decision points are as follows: Deficient: <20.0 ng/mL Insufficient: 20.0 - 29.9 ng/mL Sufficient: > or =30.0 ng/mL If the 25-Hydroxy Vitamin D results are inconsitent with clinical evidence, it is recommended that follow-up testing using a method such as LC/MS/MS be performed to confirm the result. Reference: The Endocrine Society Clinical Practice Guidelines. 2011 Blood BLOOD SPECIMEN / Unknown Lab Venipuncture / Unknown 04/20/2021 3:59 PM [facility] 04/20/2021 4:56 PM [facility] Yoli Olivera MD LAB - CHEMISTRY ORDERABLES [facility] [address] [place] [address], [place] [phone] * HEPATITIS B SURFACE ANTIBODY (04/20/2021 3:59 PM [facility]) Hepatitis B Virus Surface Antibody Non-react marlon Non-react marlon 04/20/2021 6:43 PM [employer] [employer] [facility] Comment: < 8 mIU/mL Hepatitis B surface Antibody (HBsAb). Nonreactive for HBsAb - individual is considered not immune to Hepatitis B Virus infection. Hepatitis B Surface Antibody Quantitative 0.0 <8.0 mIU/mL 04/20/2021 6:43 PM [employer] [employer] [facility] Comment: Hepatitis B Surface Antibody Numeric Result Interpretation: Nonreactive: <8.0 mIU/mL Indeterminate: 8.0 - 12.0 mIU/mL Reactive: >12.0 mIU/mL Blood BLOOD SPECIMEN / Unknown Lab Venipuncture / Unknown 04/20/2021 3:59 PM [employer] 04/20/2021 4:49 PM [employer] Yoli Olivera MD LAB - CHEMISTRY ORDERABLES Performing Organization Address City/[facility]/ZIP Co de Phone Number [address] [address], [facility] [phone] * HEPATITIS B CORE ANTIBODY (04/20/2021 3:59 PM [employer] [employer]) HBc Antibody Total Non-reacti ve Non-reacti ve 04/20/2021 6:43 PM [employer] [employer] Blood BLOOD SPECIMEN / Unknown Lab Venipuncture / Unknown 04/20/2021 3:59 PM ELECTRICIAN FRONT 04/20/2021 4:49 PM ELECTRICIAN FRONT Yoli Olivera MD LAB - CHEMISTRY ORDERABLES [address] [address], [facility] [phone] * HEPATITIS B SURFACE ANTIGEN W RFLX CONFIRMATION (04/20/2021 3:59 PM ELECTRICIAN FRONT) Hepatitis B Virus Surface Antigen Non-reacti ve Non-reacti ve 04/20/2021 6:43 PM ELECTRICIAN FRONT [facility] Blood BLOOD SPECIMEN / Unknown Lab Venipuncture / Unknown 04/20/2021 3:59 PM ELECTRICIAN FRONT 04/20/2021 4:49 PM ELECTRICIAN FRONT Yoli Olivera MD LAB - CHEMISTRY ORDERABLES Performing Organization Address City/[facility]/ZIP Co de Phone Number [address] [address], [facility] [phone] * HEPATITIS C ANTIBODY (04/20/2021 3:59 PM ELECTRICIAN FRONT) Pathologist [facility] Hepatitis C Antibody Non-react marlon Non-reac tive 04/20/2021 6:43 PM ELECTRICIAN FRONT [facility] Comment:Hepatitis C Antibody screen indicates no serologic evidence of past or current infection with Hepatitis C Virus. Patients with unexplained liver disease who are immunocompromised or suspected of having acute Hepatitis C infection may benefit from Nucleic Acid Test (TONNY) for Hepatitis C Viral RNA to confirm Hepatitis C status. Blood BLOOD SPECIMEN / Unknown Lab Venipuncture / Unknown 04/20/2021 3:59 PM ELECTRICIAN FRONT 04/20/2021 4:49 PM ELECTRICIAN FRONT Yoli Olivera MD LAB - CHEMISTRY ORDERABLES Performing Organization Address [facility] Co de Phone Number [address] [address], [facility] [phone] * CULTURE URINE REFLEXED I (08/24/2020 3:06 PM CDT) Only the most recent of4 resultswithin the time period is included. Pathologist [facility] Reflexive Urine Culture See Below [facility] Comment: NO CULTURE INDICATED Test Performed at: [facility] [place] [address] [place] [address] BENOIT FOSS DO,MPH 08/24/2020 3:06 PM CDT 08/24/2020 3:07 PM CDT Yoli Olivera MD LAB - MICROBIOL OGY ORDERABLES Performing Organization Address City/[facility]/ZIP Co de Phone Number [facility] [phone] [place] [address] * URINALYSIS W/MICROSCOPIC REFLEX TO CULTURE (08/24/2020 3:06 PM CDT) Only the most recent of8 resultswithin the time period is included. Color UA YELLOW YELLOW [facility] Appearance CLEAR CLEAR [facility] Specific Cataldo UA 1.007 1.001 - 1.035 [facility] pH UA 6.5 5.0 - 8.0 [facility] Glucose UA NEGATIVE NEGATIVE [facility] Bilirubin UA NEGATIVE NEGATIVE [facility] Ketone UA NEGATIVE NEGATIVE [facility] Blood UA NEGATIVE NEGATIVE [facility] Protein UA NEGATIVE NEGATIVE [facility] Nitrite NEGATIVE NEGATIVE [facility] Leukocyte Esterase NEGATIVE NEGATIVE [facility] WBC UA NONE SEEN < OR = 5 /HPF [facility] RBC UA NONE SEEN < OR = 2 /HPF [facility] Epithelial Cell UA NONE SEEN < OR = 5 /HPF [facility] Bacteria UA NONE SEEN NONE SEEN /HPF [facility] Hyaline Casts NONE SEEN NONE SEEN /LPF [facility] Comment: Test Performed at: [facility] [address] [place] [address] BENOIT FOSS DO,MPH Urine URINE SPECIMEN OBTAINED BY CLEAN CATCH PROCEDURE / Unknown 08/24/2020 3:06 PM CDT 08/24/2020 3:07 PM CDT Yoli Olivera MD LAB - URINALYSI S ORDERABLES [facility] [address] [place] [phone] * CT LUNG SCREEN LOW DOSE (05/11/2020 8:16 AM ELECTRICIAN FRONT) Anatomical Region Laterality Modality Chest Computed Tomogra phy 05/11/2020 8:18 AM ELECTRICIAN FRONT Impressions 05/11/2020 10:50 AM ELECTRICIAN FRONT Impression: 8 mm pleural-based pulmonary nodule in the superior segment of the right lower lobe, along with additional smaller nodules as detailed above, including a cavitated subpleural nodule with a 1 mm wall. This lesion may be best followed by evaluating the wall thickness. [address] follow-up is recommended. Lung-RADS: 3 LungRADS Categories: 1 - Negative (no nodules, or only benign calcified or fat-containing nodules) 2 - Benign Appearance or Behavior (nodules with very low likelihood of becoming a clinically active cancer due to size or lack of growth) 3 - Probably Benign (probably benign findings-short term follow up suggested; includes nodules with a low likelihood of becoming a clinically active cancer) 4A,4B,4X - Suspicious (category 3 or 4 nodules with findings for which additional diagnostic testing and/or tissue sampling is recommended) S - Other (clinically significant or potentially clinically significant findings (non-lung cancer) C - Prior Lung Cancer (modifier for patients with a prior diagnosis of lung cancer who return to screening) Report drafted by GAURAV AQUINO (resident) I, Dr. LISA MARCELINO have personally reviewed and interpreted this examination/study. This report was electronically signed by LISA MARCELINO on 05/11/2020 10:50 AM . Narrative 05/11/2020 10:50 AM ELECTRICIAN FRONT Procedure Information DATE: 05/11/2020 8:17 AM EXAMINATION: Computed tomography (CT) of the chest without contrast TECHNIQUE: CT of the chest was performed without contrast according to low-dose protocol. Clinical Information HISTORY: Z72.0: Tobacco abuse disorder COMPARISON: None. Findings Evaluation of visceral and vascular structures is degraded due to lack of intravenous contrast administration. Lines/Tubes: None. Lower neck and axillae: Normal. Mediastinum and Maty: No pathologically enlarged lymph nodes are present. Hilar regions cannot be adequately evaluated on this noncontrast study. Heart and Pericardium: The cardiac chambers are normal in size. No pericardial fluid or thickening is present. Dilated ascending aorta at the level of the right pulmonary artery measuring up to 3.9 cm. Lung Parenchyma, Airways, and Pleural Spaces: Lung lesion series 6, image 73 lobe: Superior segment of right lower lobe dimensions: 8 x 5 density: Solid attenuation: 68HU margins: Well-defined SSM-Lung Nodule Multiple other sub-5 mm pulmonary nodules scattered throughout both lung [place]. Examples include a cavitated subpleural 5 mm pulmonary nodule in the right upper lobe with a 1 mm wall (image 51 series 6), 2 mm nodules in the right upper lobe (image 54, 59 series 6) and right lower lobe (image 77 series 6), 3 mm nodule in the left lower lobe posteriorly (image 100 series 6) and 2 mm left upper lobe nodule (image 33 series 6). Patchy areas of subpleural haziness are present bilaterally, which may result from nonspecific likely chronic inflammation. Biapical lung scarring. Mild biapical paraseptal emphysema. There is no pleural effusion or pneumothorax. Bones and Soft Tissue: Chronic deformity of the left clavicle. Upper Abdomen: The visible upper abdominal viscera are unremarkable. Procedure Note Lisa Marcelino MD - 05/11/2020 Procedure Information DATE: 05/11/2020 8:17 AM EXAMINATION: Computed tomography (CT) of the chest without contrast TECHNIQUE: CT of the chest was performed without contrast according to low-dose protocol. Clinical Information HISTORY: Z72.0: Tobacco abuse disorder COMPARISON: None. Findings Evaluation of visceral and vascular structures is degraded due to lackof intravenous contrast administration. Lines/Tubes: None. Lower neck and axillae: Normal. Mediastinum and Maty: No pathologically enlarged lymph nodes are present. Hilar regions cannot be adequately evaluated on this noncontrast study. Heart and Pericardium: The cardiac chambers are normal in size. No pericardial fluid or thickening is present. Dilated ascending aorta at the level of the right pulmonary artery measuring up to 3.9 cm. Lung Parenchyma, Airways, and Pleural Spaces: Lung lesion series 6, image 73 lobe: Superior segment of right lower lobe dimensions: 8 x 5 density: Solid attenuation: 68HU margins: Well-defined SSM-Lung Nodule Multiple other sub-5 mm pulmonary nodules scattered throughout both lung [place]. Examples include a cavitated subpleural 5 mm pulmonary nodule in the right upper lobe with a 1 mm wall (image 51 series 6), 2 mm nodulesin the right upper lobe (image 54, 59 series 6) and right lower lobe (image 77 series 6), 3 mm nodule in the left lower lobe posteriorly (image 100 series 6) and 2 mm left upper lobe nodule (image 33 series 6). Patchy areas of subpleural haziness are present bilaterally, which may result from nonspecific likely chronic inflammation. Biapical lung scarring. Mild biapical paraseptal emphysema. There is no pleural effusion or pneumothorax. Bones and Soft Tissue: Chronic deformity of the left clavicle. Upper Abdomen: The visible upper abdominal viscera are unremarkable. Impression: 8 mm pleural-based pulmonary nodule in the superior segment of the right lower lobe, along with additional smaller nodules as detailed above, including a cavitated subpleural nodule with a 1 mm wall. This lesionmay be best followed by evaluating the wall thickness. [address] follow-upis recommended. Lung-RADS: 3 LungRADS Categories: 1 - Negative (no nodules, or only benign calcified or fat-containing nodules) 2 - Benign Appearance or Behavior (nodules with very low likelihood of becoming a clinically active cancer due to size or lack of growth) 3 - Probably Benign (probably benign findings-short term follow up suggested; includes nodules with a low likelihood of becoming aclinically active cancer) 4A,4B,4X - Suspicious (category 3 or 4 nodules with findings for which additional diagnostic testing and/or tissue sampling is recommended) S - Other (clinically significant or potentially clinically significant findings (non-lung cancer) C - Prior Lung Cancer (modifier for patients with a prior diagnosis of lung cancer who return to screening) Report drafted by GAURAV AQUINO (resident) I, Dr. LISA MARCELINO have personally reviewed and interpreted this examination/study. This report was electronically signed by LISA MARCELINO on 05/11/2020 10:50 AM . Mustapha Easton MD CT ORDERABLES * QUANTIFERON-TB GOLD PLUS 1-TUBE (05/10/2020 3:06 PM ELECTRICIAN FRONT) Only the most recent of2 resultswithin the time period is included. QuantiFERON TB Gold Plus NEGATIVE NEGATIVE [facility] Comment: Negative test result. M. tuberculosis complex infection unlikely. NIL 0.01 IU/mL [facility] MITOGEN MINUS NIL RESULT >10.00 IU/mL [facility] TB1-NIL 0.01 IU/mL [facility] TB2-NIL 0.00 IU/mL [facility] Comment: The Nil tube value reflects the background interferon gamma immune response of the patient's blood sample. This value has been subtracted from the patient's displayed TB and Mitogen results. Lower than expected results with the Mitogen tube prevent false-negative Quantiferon readings by detecting a patient with a potential immune suppressive condition and/or suboptimal pre-analytical specimen handling. The TB1 Antigen tube is coated with the M. tuberculosis-specific antigens designed to elicit responses from TB antigen primed CD4+ helper T-lymphocytes. The TB2 Antigen tube is coated with the M. tuberculosis-specific antigens designed to elicit responses from TB antigen primed CD4+ helper and CD8+ cytotoxic T-lymphocytes. For additional information, please refer to https://education.[employer]ur[employer].My Study Rewards/faq/MHS709 (This link is being provided for informational/ educational purposes only.) REPORT COMMENT: FASTING:NO Test Performed at: [facility] [address] [facility] [place] [address] BENOIT FOSS DO,MPH 05/10/2020 3:06 PM ELECTRICIAN FRONT 05/10/2020 3:07 PM ELECTRICIAN FRONT Yoli Olivera MD LAB - CHEMISTRY ORDERABLES Performing Organization Address [facility] de Phone Number [address] [address] * CBC W/O DIFFERENTIAL (02/02/2020 11:11 AM CDT) White Blood Cell Count 9.5 3.8 - 10.8 Thousand/u L [facility] RBC 4.38 4.20 - 5.80 Million/uL [facility] Hemoglobin 14.1 13.2 - 17.1 g/dL [facility] Hematocrit 42.3 38.5 - 50.0 % [facility] MCV 96.6 80.0 - 100.0 fL [facility] MCH 32.2 27.0 - 33.0 pg [facility] MCHC 33.3 32.0 - 36.0 g/dL [facility] RDW 13.2 11.0 - 15.0 % [facility] Platelet Count 303 140 - 400 Thousand/u L [facility] MPV 10.4 7.5 - 12.5 fL [facility] Comment: Test Performed at: [facility] [address] JAX ARCEO MD Blood BLOOD SPECIMEN / Unknown 02/02/2020 11:11 AM CDT 02/02/2020 11:12 AM CDT Yoli Olivera MD LAB - HEMATOLOG Y ORDERABLES Performing Organization Address [facility] Co de Phone Number [address] [address] * (ABNORMAL) URIC ACID BLOOD (10/27/2019 11:50 AM CDT) Uric Acid 3.1(L) 4.0 - 8.0 mg/dL [facility] Comment: Therapeutic target for gout patients: <6.0 mg/dL Test Performed at: [facility] [place] [address] [place] [address] BENOIT FOSS DO,MPH 10/27/2019 11:5 0 AM CDT 10/27/2019 11:55 AM CDT Hector Dominguez MD LAB - CHEMISTRY MIHIR DUBOSE Performing Organization Address [facility] de Phone Number [address] [address] * (ABNORMAL) URINALYSIS REFLEX TO MICROSCOPIC NO CULTURE (10/27/2019 11:50 AM CDT) Color UA YELLOW YELLOW [facility] Appearance CLEAR CLEAR [facility] Specific Cataldo UA 1.025 1.001 - 1.035 [facility] pH UA 7.0 5.0 - 8.0 [facility] Glucose UA NEGATIVE NEGATIVE [facility] Bilirubin UA NEGATIVE NEGATIVE [facility] Ketone UA NEGATIVE NEGATIVE [facility] Blood UA NEGATIVE NEGATIVE [facility] Protein UA 1+(A) NEGATIVE [facility] Nitrite UA NEGATIVE NEGATIVE [facility] Leukocyte UA NEGATIVE NEGATIVE [facility] WBC UA NONE SEEN < OR = 5 /HPF [facility] RBC UA NONE SEEN < OR = 2 /HPF [facility] Epithelial Cell UA NONE SEEN < OR = 5 /HPF [facility] Bacteria UA NONE SEEN NONE SEEN /HPF [facility] Hyaline Casts NONE SEEN NONE SEEN /LPF [facility] Comment: Test Performed at: [facility] [id number] BENOIT FOSS DO,MPH 10/27/2019 11:5 0 AM CDT 10/27/2019 11:55 AM CDT Hector Dominguez MD LAB - URINALYSIS ORD ERABLES Performing Organization Address [facility] de Phone Number [address] [address] * (ABNORMAL) RHEUMATOID FACTOR BLOOD QUANTITATIVE (10/27/2019 11:50 AM CDT) Rheumatoid Factor 199(H) <14 IU/mL [facility] Comment: Test Performed at: [facility] [id number] [address] [address] BENOIT FOSS DO,MPH 10/27/2019 11:5 0 AM CDT 10/27/2019 11:55 AM CDT Hector Dominguez MD LAB - CHEMISTRY MIHIR DUBOSE Performing Organization Address [facility] de Phone Number [address] [address] * (ABNORMAL) CYCLIC CITRULLINATED PEPTIDE(CCP) AB IGG (10/27/2019 11:50 AM CDT) Cyclic Citrullinated Peptide Antibody IgG >250(H) UNITS [facility] Comment: Reference Range Negative: <20 Weak Positive: 20-39 Moderate Positive: 40-59 Strong Positive: >59 Test Performed at: [facility] [address] [place] [address] BENOIT FOSS DO,MPH 10/27/2019 11:5 0 AM CDT 10/27/2019 11:55 AM CDT Hector Dominguez MD LAB - CHEMISTRY MIHIR DUBOSE [facility] [address] [place] [address] * MRI SHOULDER RIGHT W CONTRAST (07/14/2018 2:02 PM CDT) Anatomical Region Laterality Modality Magnetic Resonan ce 07/14/2018 1:33 PM CDT Impressions 07/14/2018 2:34 PM CDT IMPRESSION: 1. Full-thickness rotator cuff tear involving nearly entire supraspinatus tendon and anterior half of the infraspinatus tendon, approximately measuring 4 cm in AP dimension, with retraction and muscle atrophy. 2. Moderate tendinosis of the subscapularis tendon and long head of biceps. The intra-articular portion of the long head of biceps is diminutive suggesting partial-thickness tear. 3. Moderate acromioclavicular and mild glenohumeral osteoarthritis. 4. Irregularity with abnormal signal in the superior labrum, consistent with tear. Dictated by Katia Puckett MD (vice president quality). I, Dr. DANIEL LOCKWOOD MD have personally reviewed and interpreted this examination/study. This report was electronically signed by DANIEL LOCKWOOD MD on 07/14/2018 2:34 PM . Narrative 07/14/2018 2:34 PM CDT EXAMINATION: Magnetic resonance imaging (MRI) of the right shoulder with contrast HISTORY: R 29.898: Right arm weakness m 25.511: Chronic right shoulder pain g 89.29: Chronic right shoulder pain TECHNIQUE: MRI of the right shoulder was performed using multiple pulse sequences in multiple planes with intra-articular contrast. COMPARISON: Right shoulder radiograph from 11/21/2017 FINDINGS: The acromioclavicular joint is intact. There is moderate acromioclavicular joint osteoarthritis with subchondral/periarticular edema, cyst, and osteophyte formation. There is full-thickness rotator cuff tear involving the entire supraspinatus tendon and extending posteriorly to involve at least half of the infraspinatus tendon, approximately measuring 4 cm in AP dimension. The tendons are retracted approximately 5.0 cm over the the glenohumeral joint. There is [id number] atrophy of the supraspinatus muscle and moderate atrophy of the infraspinatus muscle. The intra-articular contrast surrounds the subscapularis tendon and muscle. There is suggestion of [id number] tendinosis of the subscapularis tendon. The teres minor is normal without tendinosis or tear. The intra-articular portion of the long head of biceps appears diminutive with abnormal signal, likely representing moderate tendinosis and partial-thickness tear. There is superior subluxation of the humeral head with reduced acromiohumeral distance. There is irregularity with abnormal signal in the superior labrum representing tear.There is mild glenohumeral arthritis. Small cysts are noted in the humeral head. The middle glenohumeral ligament is diminutive. There is extension of the intra-articular contrast in the subacromial-subdeltoid bursa. Regions of mild marrow T1 hypointensity are consistent with red marrow conversion. The subcutaneous tissue is normal. Procedure Note Daniel Lockwood MD - 07/14/2018 EXAMINATION: Magnetic resonance imaging (MRI) of the right shoulder with contrast HISTORY: R 29.898: Right arm weakness m 25.511: Chronic right shoulder pain g 89.29: Chronic right shoulder pain TECHNIQUE: MRI of the right shoulder was performed using multiple pulse sequences in multiple planes with intra-articular contrast. COMPARISON: Right shoulder radiograph from 11/21/2017 FINDINGS: The acromioclavicular joint is intact. There is moderateacromioclavicular joint osteoarthritis with subchondral/periarticular edema, cyst, and osteophyte formation. There is full-thickness rotator cuff tear involving the entire supraspinatus tendon and extending posteriorly to involve at least halfof the infraspinatus tendon, approximately measuring 4 cm in AP dimension. The tendons are retracted approximately 5.0 cm over the the glenohumeral joint. There is [id number] atrophy of the supraspinatus muscleand moderate atrophy of the infraspinatus muscle. The intra-articular contrast surrounds the subscapularis tendon and muscle. There is suggestion of [id number]-[id number] tendinosis of the subscapularis tendon. The teres minor is normal without tendinosis or tear. The intra-articular portion of the long head of biceps appearsdiminutive with abnormal signal, likely representing moderate tendinosis and partial-thickness tear. There is superior subluxation of the humeral head with reduced acromiohumeral distance. There is irregularity with abnormal signal inthe superior labrum representing tear.There is mild glenohumeral arthritis. Small cysts are noted in the humeral head. The middle glenohumeral ligament is diminutive. There is extension of the intra-articular contrast in the subacromial-subdeltoid bursa. Regions of mild marrow T1 hypointensity are consistent with red marrow conversion. The subcutaneous tissue is normal. IMPRESSION: 1. Full-thickness rotator cuff tear involving nearly entiresupraspinatus tendon and anterior half of the infraspinatus tendon, approximately measuring 4 cm in AP dimension, with retraction and muscle atrophy. 2. Moderate tendinosis of the subscapularis tendon and long head of biceps. The intra-articular portion of the long head of biceps is diminutive suggesting partial-thickness tear. 3. Moderate acromioclavicular and mild glenohumeral osteoarthritis. 4. Irregularity with abnormal signal in the superior labrum, consistent with tear. Dictated by Katia Puckett MD (vice president quality). I, Dr. DANIEL LOCKWOOD MD have personally reviewed and interpreted this examination/study. This report was electronically signed by DANIEL LOCKWOOD MD on07/14/2018 2:34 PM . Hernandez Pedro Pablo Begum DO MR ORDERABLES * MRI CERVICAL SPINE WO CONTRAST (07/14/2018 12:11 PM CDT) Anatomical Region Laterality Modality Pelvis Magnetic Resonan ce 07/14/2018 1:46 PM CDT Impressions 07/14/2018 1:56 PM CDT IMPRESSION: Cervical spine degenerative changes causing variable spinal stenosis, detailed in the above report. This report was electronically signed by KARLY OLVERA on 07/14/2018 1:56 PM . Narrative 07/14/2018 1:56 PM CDT EXAMINATION: Computed tomography (CT) of the cervical spine without contrast HISTORY: Z87.81: History of cervical fracture TECHNIQUE: CT of the cervical spine was performed without contrast according to standard protocol. COMPARISON: None available FINDINGS: Reversal of usual cervical lordosis with apex at C6 level. Mild less than 2 mm anterolisthesis of C3-4, C4-5, C5-6. Cervical spine ligaments are intact. Intervertebral disc space narrowing at C4-5, C5-6, C6-7. High T2 STIR signal of the C4-5 intervertebral disc (may be degenerative or traumatic), which has anterior disc extrusion with inferior migration to mid C5 level. Endplates appear grossly intact. Normal marrow signal (including no abnormal marrow edema). Vertebral body heights are maintained. Imaged cord has normal caliber and signal. Perivertebral space appears unremarkable. C2-3: Minimal disc bulge. Mild bilateral uncovertebral joint arthropathy. Mild bilateral facet arthropathy. Mild thickening of the ligamentum flavum. Mild canal stenosis, with partial effacement of the CSF. No significant neuroforaminal stenosis. C3-4: Broad-based discussed by complex, including component of disc bulge and bilateral uncovertebral joint arthropathy and thickening of the posterior longitudinal ligament. Thickening of the ligamentum flavum the left side (mildly impresses on the adjacent cord). Bilateral facet arthropathy. Mild to moderate canal stenosis, with thin rim of CSF marginating most of cord.. Severe bilateral neuroforaminal stenosis. C4-5: Broad-based disc osteophyte complex, with component of disc bulge, bilateral uncovertebral joint arthropathy, and thickening of the posterior longitudinal ligament. Mild bilateral facet arthropathy. Mild to moderate canal stenosis, with thin rim of CSF marginating cortex. Severe bilateral neuroforaminal stenosis. C5-6: Broad-based disc osteophyte complex, centrally larger at the left side. Mild to moderate canal stenosis, with disc osteophyte complex mildly impressing on the left ventral aspect of the cord, and preserved CSF marginating rest of the cord. Severe bilateral neural foraminal stenosis. C6-7: Broad-based disc osteophyte complex, including component of disc bulge and bilateral uncovertebral joint arthropathy. Mild to moderate canal stenosis, with the normal CSF marginating cortex. Mild to moderate right neural foraminal stenosis. Severe left neuroforaminal stenosis. C7-T1: Minimal disc bulge. No significant spinal stenosis. Procedure Note Karly Olvera MD - 07/14/2018 EXAMINATION: Computed tomography (CT) of the cervical spine without contrast HISTORY: Z87.81: History of cervical fracture TECHNIQUE: CT of the cervical spine was performed without contrast according to standard protocol. COMPARISON: None available FINDINGS: Reversal of usual cervical lordosis with apex at C6 level. Mild lessthan 2 mm anterolisthesis of C3-4, C4-5, C5-6. Cervical spine ligaments are intact. Intervertebral disc space narrowing at C4-5, C5-6, C6-7. High T2 STIR signal of the C4-5 intervertebral disc (may be degenerative ortraumatic), which has anterior disc extrusion with inferior migration to mid [id number]. Endplates appear grossly intact. Normal marrow signal (including no abnormal marrow edema). Vertebral body heights are maintained. Imaged cord has normal caliber and signal. Perivertebral space appears unremarkable. C2-3: Minimal disc bulge. Mild bilateral uncovertebral jointarthropathy. Mild bilateral facet arthropathy. Mild thickening of the ligamentum flavum. Mild canal stenosis, with partial effacement of the CSF. No significant neuroforaminal stenosis. C3-4: Broad-based discussed by complex, including component of discbulge and bilateral uncovertebral joint arthropathy and thickening of the posterior longitudinal ligament. Thickening of the ligamentum flavum the left side (mildly impresses on the adjacent cord). Bilateral facet arthropathy. Mild to moderate canal stenosis, with thin rim of CSF marginating most of cord.. Severe bilateral neuroforaminal stenosis. C4-5: Broad-based disc osteophyte complex, with component of disc bulge, bilateral uncovertebral joint arthropathy, and thickening of theposterior longitudinal ligament. Mild bilateral facet arthropathy. Mild tomoderate canal stenosis, with thin rim of CSF marginating cortex. Severebilateral neuroforaminal stenosis. C5-6: Broad-based disc osteophyte complex, centrally larger at the left side. Mild to moderate canal stenosis, with disc osteophyte complexmildly impressing on the left ventral aspect of the cord, and preserved CSF marginating rest of the cord. Severe bilateral neural foraminalstenosis. C6-7: Broad-based disc osteophyte complex, including component of disc bulge and bilateral uncovertebral joint arthropathy. Mild to moderate canal stenosis, with the normal CSF marginating cortex. Mild to moderate right neural foraminal stenosis. Severe left neuroforaminal stenosis. C7-T1: Minimal disc bulge. No significant spinal stenosis. IMPRESSION: Cervical spine degenerative changes causing variable spinal stenosis, detailed in the above report. This report was electronically signed by KARLY OLVERA on 07/14/2018 1:56PM . David Begum DO MR ORDERABLES * FL SHOULDER RIGHT ARTHROGRAM (07/14/2018 11:50 AM CDT) Anatomical Region Laterality Modality Upper Extremity Radiographic Janice ging 07/14/2018 1:31 PM CDT Impressions 07/14/2018 1:48 PM CDT IMPRESSION: Successful right shoulder arthrogram performed with gadolinium contrast injection in preparation for MR arthrography. Dr. Lockwood, Attending Physician, was present for the entire procedure. Dictated by Katia Puckett MD (vice president quality). I, Dr. DANIEL LOCKWOOD MD have personally reviewed and interpreted this examination/study. This report was electronically signed by DANIEL LOCKWOOD MD on 07/14/2018 1:48 PM . Narrative 07/14/2018 1:48 PM CDT EXAMINATION: Right shoulder arthrogram HISTORY: R 29.898: Right arm weakness m 25.511: Chronic right shoulder pain g 89.29: Chronic right shoulder pain FLUOROSCOPY TIME: 13 seconds TECHNIQUE AND FINDINGS: The procedure was explained to the patient, including its risks and benefits. Informed consent was obtained. The patient was positioned supine on the fluoroscopy table with the right upper extremity adducted and in external rotation. Under fluoroscopy, the intended access site was marked. The skin was prepped and draped in sterile fashion. Local anesthesia was obtained using a small volume of 1% Lidocaine. Next, a 22-gauge 3.5-inch needle was advanced into the glenohumeral joint under fluoroscopic guidance. 1 mL of lidocaine was injected into the joint without resistance. Next, 14 mL of a contrast mixture containing 10 mL Isovue 300, 10 mL normal saline, and 0.15 mL Magnevist per 20.15 mL total volume was injected into the glenohumeral joint under fluoroscopic observation. The needle was withdrawn and the patient was sent to MRI department for further imaging. The patient tolerated the procedure well. Procedure Note Daniel Lockwood MD - 07/14/2018 EXAMINATION: Right shoulder arthrogram HISTORY: R 29.898: Right arm weakness m 25.511: Chronic right shoulder pain g 89.29: Chronic right shoulder pain FLUOROSCOPY TIME: 13 seconds TECHNIQUE AND FINDINGS: The procedure was explained to the patient, including its risks and benefits. Informed consent was obtained. The patient was positionedsupine on the fluoroscopy table with the right upper extremity adducted and in external rotation. Under fluoroscopy, the intended access site wasmarked. The skin was prepped and draped in sterile fashion. Local anesthesia was obtained using a small volume of 1% Lidocaine. Next, a 22-gauge 3.5-inch needle was advanced into the glenohumeraljoint under fluoroscopic guidance. 1 mL of lidocaine was injected into thejoint without resistance. Next, 14 mL of a contrast mixture containing 10 mL Isovue 300, 10 mL normal saline, and 0.15 mL Magnevist per 20.15 mLtotal volume was injected into the glenohumeral joint under fluoroscopic observation. The needle was withdrawn and the patient was sent to MRI department for further imaging. The patient tolerated the procedurewell. IMPRESSION: Successful right shoulder arthrogram performed with gadolinium contrast injection in preparation for MR arthrography. Dr. Lockwood, Attending Physician, was present for the entire procedure. Dictated by Katia Puckett MD (vice president quality). I, Dr. DANIEL LOCKWOOD MD have personally reviewed and interpreted this examination/study. This report was electronically signed by DANIEL LOCKWOOD MD on07/14/2018 1:48 PM . Hernandez M Begum DO FLUOROSCOPY ORDERABL ES * [place] DRAIN/INJECT LARGE JOINT/BURSA (04/24/2018 10:50 AM ELECTRICIAN FRONT) Narrative David Begum DO - 04/24/2018 10:50 AM ELECTRICIAN FRONT David Begum DO 04/24/2018 10:50 AM INJECTION PROCEDURE NOTE Risks/benefits of injection discussed, including bleeding, infection, site reaction, and possible flare. Pt. Expresses understanding and verbally consents for injection. Area prepped in usual sterile manner. 2 cc of 40 mg/mL Triamcinolone Acetonide + 4 cc of 1% lido was injected into right GH Joint using an posterolateral approach. No complications. Pt. Tolerated well. David Begum DO PROCEDURE/MINOR SURG ICAL ORDERABLES * XR SHOULDER RIGHT 2VW OR MORE (11/21/2017 11:31 AM CDT) Anatomical Region Laterality Modality Upper Extremity Radiographic Janice ging 11/21/2017 11:3 8 AM CDT Impressions 11/24/2017 2:26 PM CDT IMPRESSION: Moderate acromioclavicular joint arthritis. Decreased acromiohumeral interval can be indicative of rotator cuff tendinopathy/tear. Dictated by Elodia iRdley MD (resident). I, Dr. DANIEL LOCKWOOD MD have personally reviewed and interpreted this examination/study. This report was electronically signed by DANIEL LOCKWOOD MD on 11/24/2017 2:26 PM . Narrative 11/24/2017 2:26 PM CDT EXAMINATION: XR SHOULDER RIGHT 2VW OR MORE HISTORY: Pain COMPARISON: No prior study is available for comparison. FINDINGS: There is moderate narrowing of the acromioclavicular joint with subchondral cysts. The glenohumeral joint space is normal. The acromiohumeral interval is decreased. No acute fracture or dislocation is seen. Bone mineralization is normal. No gross soft tissue abnormality is identified. Procedure Note Daniel Lockwood MD - 11/24/2017 EXAMINATION: XR SHOULDER RIGHT 2VW OR MORE HISTORY: Pain COMPARISON: No prior study is available for comparison. FINDINGS: There is moderate narrowing of the acromioclavicular joint with subchondral cysts. The glenohumeral joint space is normal. The acromiohumeral interval is decreased. No acute fracture or dislocationis seen. Bone mineralization is normal. No gross soft tissue abnormality is identified. IMPRESSION: Moderate acromioclavicular joint arthritis. Decreased acromiohumeral interval can be indicative of rotator cuff tendinopathy/tear. Dictated by Elodia Ridley MD (resident). I, Dr. DANIEL LOCKWOOD MD have personally reviewed and interpreted this examination/study. This report was electronically signed by DANIEL LOCKWOOD MD on11/24/2017 2:26 PM . Hernandez Pedro Pablo Begum DO [facility] Care Teams Assembler Equipment Relationship Specialty Start Date End Date Jl Jordan MD [address] [place] [id number] PCP - General 10/28/17 Real Montalvo MD [address] [place] [address] [place] [address] Resident Rheumatology 10/14/22 Hamilton Quintanilla MD [address] [place] [phone] Sales Account Associate Rheumatology 10/14/22
--- OUTSIDE RECORDS SUMMARY | 2024-05-24 14:44 | XMS_ITS | Encounter Summary ---
Author Organization [facility] Health Address [address] [place] [address] Care Team Providers Care Nurse'S Assistant Name Role Phone Jl Jordan MD Primary Care Provider [phone] Real Montalvo MD Unavailable [phone] Hamilton Quintanilla MD Unavailable Reason for Visit * Reason Onset Date Comments Appointment 04/26/2021 Encounter Details Date Type Department Care Team (Late st Contact Info) Description 04/26/2021 Telephone [facility] [address] [place] [address] Mustapha Easton MD [address] [facility] [address] Appointment Social History Tobacco Use Types Packs/Day Years Used Date Smoking Tobacco: Every Day Cigarettes 1.5 25 Smokeless Tobacco: Never Comments:TRIES TO SMOKE [...] Answer Date Recorded PHQ2 TOTAL SCORE 0 04/20/2021 Sex and Gender Information Value Date Recorded Sex Assigned at Not on file Gender Identity Not on file Sexual Orientation Not on file COVID-19 Exposure Response Date Recorded In the last month, have you been in contact with someone who was confirmed or suspected to have Coronavirus / COVID-19? No / Unsure 04/20/2021 3:29 PM TUBE MAKING MACHINE OPERATOR documented as of this encounter Miscellaneous Notes * Telephone Encounter - Maura Lambert - 04/26/2021 9:32 AM CST Good Morning Patient was unsure rather he need to schedule a test to check his lungs before he see Dr. Easton. Patient would like speak with someone regarding his test. Thank you MAKING MACHINE OPERATOR documented in this encounter Plan of Treatment Not on file documented as of this encounter Visit Diagnoses Not on filedocumented in this encounter Care Teams Nurse'S Assistant Relationship Specialty Start Date End Date Jl Jordan MD [address] [place] [id number] PCP - General 10/28/17 Real Montalvo MD [address] [place] [address] [place] [phone] Resident Rheumatology 10/14/22 Hamilton Quintanilla MD [address] [place] [phone] Pasteurizer Rheumatology 10/14/22 documented as of this encounter
--- OUTSIDE RECORDS SUMMARY | 2024-05-24 14:44 | XMS_ITS | Referral Summary ---
Author Organization [facility] Address [address] [place] [address] Care Team Providers Care Leadership Development Consultant Name Role Phone Jl Jordan MD Primary Care Provider [phone] Real Montalvo MD Unavailable [phone] Hamilton Quintanilla MD Unavailable Source Comments [facility],non-owned Affiliates and Associated Physician Practices is amultiple site organization consisting of ambulatory clinics and hospital sitesin [place], [place], [place] and [place]. This disclosure is being madepursuant to the Care Everywhere program and may not contain all information available regarding this patient. Last updated 18.[facility] Allergies No known active allergies Medications * Be aware that medications may not be up to date on this document. Alwaysverify current medications with the patient. Medication Sig Dispensed Refills Start Date End Date Status Multiple Vitamin (MULTI-VITAMIN DAILY PO) Active Ibuprofen-Acetaminophen (Advil Dual Action) 125-250 MG TABS Take 1 tablet by mouth 2 times daily as needed with food Active methotrexate 2.5 MG tabletIndications:Seropo sitive rheumatoid arthritis (HCC) Take 10 (ten) tablets by mouth every 7 days (5 pills in AM and 5 pills in PM) 40 tablet 2 06/05/2023 Active vitamin D3 (Cholecalciferol) 10 MCG (400 UNIT) tablet Take 1 (one) tablet by mouth once daily Active folic acid (Folvite) 1 MG tabletIndications:Seropo sitive rheumatoid arthritis (HCC),High risk medication use,Long-term use of immunosuppressant medication,Arthralgia, unspecified joint Take 1 (one) tablet by mouth once daily 90 tablet 4 10/28/2023 Active Active Problems Problem Noted Date Diagnosed Date Right arm weakness 06/05/2018 History of cervical fracture 06/05/2018 Rheumatoid arthritis involving multiple sites Atrophy of muscle of right shoulder 04/24/2018 Osteoarthritis of right shoulder 04/24/2018 Osteoporosis 11/21/2017 Brachial plexopathy Immunizations Name Administration Dates Next Due FLU VACCINE TRI IIV3 SPLIT IM (FLUVIRIN) 016 INFLUENZA VACCINE, QUADR. (F LUZONE; FLULAVAL; FLUARIX; AFLURIA QUADRIVALENT; 6MO+), 0.5 ML (IIV4) 01/08/2019 PNEUMOCOCCAL PCV20 CONJ VAC IM 09/14/2021 PNEUMOCOCCAL PPV VACCINE 03/11/2016 TDAP, HISTORIC VACCINE 09/14/2021 ZOSTER VACCINE, LIVE 03/11/2016 Zoster Hzv Vacc Recombinant Inj Im 09/14/2021 iNFLUENZA VACCINE, RECOM-HENAO, QUADR. (FLUBLOCK QUADRIVALENT; 18Y+) (RIV4) 01/07/2020 Social History Tobacco Use Types Packs/Day Years [...] CDT Respiratory Rate 18 03/28/2023 8:51 AM CABLE ASSEMBLER AND SWAGER Oxygen Saturation 95% 07/02/2023 9:55 AM CDT Inhaled Oxygen Concentration - - Weight 56.7 kg (125 lb) 07/02/2023 9:55 AM CDT Height 170.2 cm (5' 7 ) 07/02/2023 9:55 AM CDT Body Mass Index 19.58 07/02/2023 9:55 AM CDT Plan of Treatment Not on file Procedures Procedure Name Priority Date/Time Associated Diagnosis Comments HEPATITIS C ANTIBODY Routine 04/20/2021 3:59 PM CABLE ASSEMBLER AND SWAGER Seropositive rheumatoid arthritis (HCC) CT LUNG SCREEN LOW DOSE Routine 05/11/2020 8:16 AM CABLE ASSEMBLER AND SWAGER Tobacco abuse disorder from Last 3 Months or Most Recently Relevant to Health Maintenance Results * HEPATITIS C ANTIBODY (04/20/2021 3:59 PM CABLE ASSEMBLER AND SWAGER) Hepatitis C Antibody Non-react marlon Non-reac tive 04/20/2021 6:43 PM CABLE ASSEMBLER AND SWAGER [facility] Comment:Hepatitis C Antibody screen indicates no serologic evidence of past or current infection with Hepatitis C Virus. Patients with unexplained liver disease who are immunocompromised or suspected of having acute Hepatitis C infection may benefit from Nucleic Acid Test (TONNY) for Hepatitis C Viral RNA to confirm Hepatitis C status. Blood BLOOD SPECIMEN / Unknown Lab Venipuncture / Unknown 04/20/2021 3:59 PM CABLE ASSEMBLER AND SWAGER 04/20/2021 4:49 PM CABLE ASSEMBLER AND SWAGER Yoli Olivera MD LAB - CHEMISTRY ORDERABLES Performing Organization Address City/State/[facility] Co de Phone Number [facility] [address] [address], [facility] [phone] * CT LUNG SCREEN LOW DOSE (05/11/2020 8:16 AM CABLE ASSEMBLER AND SWAGER) Anatomical Region Laterality Modality Chest Computed Tomogra phy 05/11/2020 8:18 AM CABLE ASSEMBLER AND SWAGER Impressions 05/11/2020 10:50 AM CABLE ASSEMBLER AND SWAGER Impression: 8 mm pleural-based pulmonary nodule in [...] drafted by GAURAV AQUINO (resident) I, Dr. JUNITO MARCELINO have personally reviewed and interpreted this examination/study. This report was electronically signed by JUNITO MARCELINO on 05/11/2020 10:50 AM . Narrative 05/11/2020 10:50 AM CABLE ASSEMBLER AND SWAGER Procedure Information DATE: 05/11/2020 8:17 AM EXAMINATION: [...] upper abdominal viscera are unremarkable. Procedure Note Junito Marcelino MD - 05/11/2020 Procedure Information DATE: [...] drafted by GAURAV AQUINO (resident) I, Dr. JUNITO MARCELINO have personally reviewed and interpreted this examination/study. This report was electronically signed by JUNITO MARCELINO on 05/11/2020 10:50 AM . Mustapha Easton MD CT ORDERABLES from Last 3 Months or Most Recently Relevant to Health Maintenance Care Teams Leadership Development Consultant Relationship Specialty Start Date End Date Jl Jordan MD [address] [address] PCP - General 10/28/17 Real Montalvo MD [facility] [place] [address] Resident Rheumatology 10/14/22 Hamilton Quintanilla MD [facility] [place] [phone] Kitchen Food Assembler Rheumatology 10/14/22
--- OUTSIDE RECORDS SUMMARY | 2024-05-24 14:44 | XMS_ITS | Clinical Summary ---
Author Organization [facility] Address [address] [facility] [place] [address] Care Team Providers Care Infant Lead Teacher Name Role Phone Jl Jordan MD Primary Care Provider [phone] Real Montalvo MD Unavailable [phone] Hamilton Quintanilla MD Unavailable Source Comments [facility],non-owned Affiliates and Associated Physician Practices is amultiple site organization consisting of ambulatory clinics and hospital sitesin [place] and [place]. This disclosure is being madepursuant to the Care Everywhere program and may not contain all information available regarding this patient. Last updated 18.[facility] Allergies No known active allergies Medications * [...] CDT Respiratory Rate 18 03/28/2023 8:51 AM ENGLISH PROFESSOR Oxygen Saturation 95% 07/02/2023 9:55 AM CDT Inhaled Oxygen Concentration - - Weight 56.7 kg (125 lb) 07/02/2023 9:55 AM CDT Height 170.2 cm (5' 7 ) 07/02/2023 9:55 AM CDT Body Mass Index 19.58 07/02/2023 9:55 AM CDT Plan of Treatment Health Maintenance Due Date Last Done Comments BONE DENSITY TESTING 1955 COLOGUARD (AGES 45-75) - COL ON CA SCREENING 1955 COLON MONITORING 1955 COLONOSCOPY - COLON CA SCREENING 1955 CT COLONOGRAPHY - COLON CA SCREENING 1955 Colorectal Cancer Screening 1955 FIT - COLON CA SCREENING 1955 FLEX SIG - COLON CA SCREENING 1955 LIPID TESTING 1955 Respiratory Syncytial Virus (RSV) Vaccine Pt: or over 60 yrs (1 - Risk 60-74 years 1-dose series) 2015 AAA SCREENING 08/09/2020 LUNG CANCER SCREENING 05/11/2021 05/11/2020 , 05/20/2019 ZOSTER VACCINE (2 of 2) 11/09/2021 09/15/19 22, 03/11/2016 COVID-19 VACCINE (4 - 2023-2 5 season) 2023 03/12/2021, 07/30/2020, 07/09/2020 INFLUENZA VACCINE (#1) 2023 0, 01/08/2019, 03/11/2016 DEPRESSION SCREENING 04/14/2024 06/12/2022, 09/05/2021 DTAP/TDAP/TD VACCINES (2 - T d or Tdap) 09/15/2031 09/14/2021 HEPATITIS C SCREENING Completed 04/20/2021 PNEUMOCOCCAL VACCINE 50+ Completed 022, 03/11/2016 HEPATITIS B VACCINE Aged Out No longe r eligible based on patient's age to complete this topic HIB VACCINE Aged Out No longer eligi ble based on patient's age to complete this topic HPV VACCINE Aged Out No longer eligi ble based on patient's age to complete this topic MENINGOCOCCAL (Group B) VACCINE Aged Out No longer eligible b ased on patient's age to complete this topic MENINGOCOCCAL VACCINE Aged Out No rena peter eligible based on patient's age to complete this topic Procedures Procedure Name Priority Date/Time Associated Diagnosis Comments HEPATITIS C ANTIBODY Routine 04/20/2021 3:59 PM ENGLISH PROFESSOR Seropositive rheumatoid arthritis (HCC) CT LUNG SCREEN LOW DOSE Routine 05/11/2020 8:16 AM ENGLISH PROFESSOR Tobacco abuse disorder from Last 3 Months or Most Recently Relevant to Health Maintenance Results * HEPATITIS C ANTIBODY (04/20/2021 3:59 PM ENGLISH PROFESSOR) Hepatitis C Antibody Non-react marlon Non-reac tive 04/20/2021 6:43 PM ENGLISH PROFESSOR [facility] Comment:Hepatitis C Antibody screen indicates no serologic evidence of past or current infection with Hepatitis C Virus. Patients with unexplained liver disease who are immunocompromised or suspected of having acute Hepatitis C infection may benefit from Nucleic Acid Test (TONNY) for Hepatitis C Viral RNA to confirm Hepatitis C status. Blood BLOOD SPECIMEN / Unknown Lab Venipuncture / Unknown 04/20/2021 3:59 PM ENGLISH PROFESSOR 04/20/2021 4:49 PM ENGLISH PROFESSOR Yoli Olivera MD LAB - CHEMISTRY ORDERABLES [address] [address], [facility] [phone] * CT LUNG SCREEN LOW DOSE (05/11/2020 8:16 AM ENGLISH PROFESSOR) Anatomical Region Laterality Modality Chest Computed Tomogra phy 05/11/2020 8:18 AM ENGLISH PROFESSOR Impressions 05/11/2020 10:50 AM ENGLISH PROFESSOR Impression: 8 mm pleural-based pulmonary nodule in [...] 10:50 AM . Narrative 05/11/2020 10:50 AM ENGLISH PROFESSOR Procedure Information DATE: 05/11/2020 8:17 AM EXAMINATION: [...] Recently Relevant to Health Maintenance Care Teams Infant Lead Teacher Relationship Specialty Start Date End Date Jl Jordan MD [address] [address] PCP - General 10/28/17 Real Montalvo MD [address] [facility] [place] [address] Resident Rheumatology 10/14/22 Hamilton Quintanilla MD [address] [place] [phone] District Service Manager Rheumatology 10/14/22
--- NOTE | 2024-05-24 16:41 | PC.NURSE ---
pt declined to be seen due to wait time, pt ambulated out in NAD
--- NOTE | 2024-05-24 16:44 | PC.NURSE ---
pt will stay to be seen, taken to room 19
--- NOTE | 2024-05-24 17:44 | ED_ITS ---
HPI - General Adult General Chief complaint: Urogenital-Male Stated complaint: bright red blood in urine since friday Time Seen by Provider: 05/24/24 17:11 History of Present Illness HPI narrative: 60-year-old male present to the emergency department for evaluation for right- sided flank pain with associated hematuria. patient states the right-sided flank pain had been intermittent but resolved a few days ago. Patient states he has been having intermittent hematuria over the last few days. Patient denies any prior history of urinary retention. Related Data Home Medications ?Medication ?Instructions ?Recorded ?Confirmed ?Last Taken ?Type meloxicam 15 mg tablet 15 mg PO DAILY 12/19/19 08/10/21 Unknown History methotrexate sodium 2.5 mg tablet 2.5 mg PO DAILY 12/19/19 08/10/21 Unknown History omeprazole 20 mg capsule,delayed 20 mg PO DAILY 12/19/19 08/10/21 Unknown History release alendronate 70 mg tablet 70 mg PO DAILY 03/16/20 08/10/21 Unknown History ergocalciferol (vitamin D2) 1,250 1,250 mcg PO DAILY 03/16/20 08/10/21 Unknown History mcg (50,000 unit) capsule leflunomide 10 mg tablet 10 mg PO DAILY 03/16/20 08/10/21 Unknown History prednisone 2.5 mg tablet 2.5 mg PO DAILY 03/16/20 08/10/21 Unknown History folic acid 1 mg tablet 1 mg PO DAILY 04/06/21 08/10/21 Unknown History Allergies Allergy/AdvReac Type Severity Reaction Status Date / Time No Known Allergies Allergy Verified 12/21/21 12:24 Review of Systems 2 Review of Systems: All systems reviewed & are unremarkable except as noted in HPI and below PMFSH Past Medical History Medical History GERD (gastroesophageal reflux disease) Rheumatoid arthritis Family History Family History Other Rheumatoid arthritis Social History Social History Smoking status: Current every day smoker Alcohol intake: current Gender identity (if verbalized by the patient): Male Exam 2 Narrative: APPEARANCE: Well appearing, no pain, no distress, well-nourished. HEAD: normocephalic, atraumatic. EYES: PERRLA/EOMI, conjunctivae clear. NOSE: Normal no drainage EARS:TMS clear with good light reflex. THROAT: Pharynx clear, no exudate. NECK: Supple. No adenopathy, no masses. RESPIRATORY: Airway patent, respirations nonlabored. Clear to auscultation bilaterally, no rales, rhonchi, wheezing. CARDIOVASCULAR: Regular rate and rhythm without murmurs rubs or gallops. ABDOMINAL: Soft, nontender, nondistended, normal bowel sounds MUSCULOSKELETAL: Moves all extremities. Strength/ROM intact, No edema, No calf tenderness. NEURO: Alert. Cranial nerves II through XII intact. SKIN: Warm, dry. Normal Color Course Vital Signs Vital signs: Vital Signs Temperature 97.7 F 05/24/24 14:39 Pulse Rate 68 05/24/24 14:39 Respiratory Rate 20 05/24/24 14:39 Blood Pressure 134/77 05/24/24 14:39 Pulse Oximetry 99 05/24/24 14:39 Oxygen Delivery Room Air 05/24/24 14:39 Temperature 97.7 F 05/24/24 14:39 Pulse Rate 68 05/24/24 19:23 Respiratory Rate 16 05/24/24 19:23 Blood Pressure 116/78 05/24/24 19:23 Pulse Oximetry 97 05/24/24 19:23 Oxygen Delivery Room Air 05/24/24 14:39 Medical Decision Making [facility] Narrative Medical decision making narrative: 60-year-old male presented emergency department for evaluation for intermittent right-sided flank pain with intermittent hematuria. Patient was afebrile with no leukocytosis and a stable hemoglobin of 13.7. Patient's INR was 0.9. Patient has normal kidney function with no other significant abnormalities on his CMP UA was negative for infection but was positive for blood. CT scan was ordered to evaluate for ureteral calculi this was negative. Patient did have a distended bladder the CT scan but postvoid residual bladder scan by ultrasound showed no significant urinary retention. Patient was updated on the results of his workup patient was comfortable plan for discharge close follow-up with Urology. Patient had previously followed up with Urology [facility] post feeling follow-up with our Urology. Patient was educated on reasons to return to the emergency department. All questions concerns were addressed. Differential Diagnosis Differential Diagnosis: UTI, ureteral calculi, urinary retention Medical Records Medical records reviewed: Yes I reviewed the external patient's medical records. Vital Signs Vital Signs: Vital Signs Temperature 97.7 F 05/24/24 14:39 Pulse Rate 68 05/24/24 14:39 Respiratory Rate 20 05/24/24 14:39 Blood Pressure 134/77 05/24/24 14:39 Pulse Oximetry 99 05/24/24 14:39 Oxygen Delivery Room Air 05/24/24 14:39 Temperature 97.7 F 05/24/24 14:39 Pulse Rate 68 05/24/24 19:23 Respiratory Rate 16 05/24/24 19:23 Blood Pressure 116/78 05/24/24 19:23 Pulse Oximetry 97 05/24/24 19:23 Oxygen Delivery Room Air 05/24/24 14:39 Lab Data Lab results reviewed: Yes I reviewed the patient's lab results. 05/24/24 18:07 05/24/24 18:07 Labs: Lab Results 05/24/24 Range/Units 18:07 WBC 8.7 (4.5-10.0) K/mm3 RBC 4.47 L (4.6-6.20) M/mm3 Hgb 13.7 L (14.0-18.0) g/dL Hct 40.5 L (42.0-52.0) % MCV 90.6 (80-100) fl MCH 30.6 (26-34) pg MCHC 33.8 (32-36) g/dl RDW 12.7 (11.5-14.5) % Plt Count 323 (150-375) k/mm3 MPV 9.8 (7.4-10.4) fl Immature Gran % (Auto) 0.2 (0-0.5) % Neut % (Auto) 58.3 (45.5-73.1) % Lymph % (Auto) 25.1 (18.3-44.2) % Andrew % (Auto) 9.2 H (2.6-8.5) % Eos % (Auto) 6.4 H (0-4.4) % Baso % (Auto) 0.8 (0.2-1.2) % Lymph # (Auto) 2.19 (0.9-3.2) K/mm3 Andrew # (Auto) 0.8 H (0.1-0.6) K/mm3 Eos # (Auto) 0.6 H (0-0.3) K/mm3 Baso # (Auto) 0.1 (0.0-0.1) K/mm3 Abs Immat Gran (auto) 0.02 (0.00-0.031) K/mm3 Absolute Neuts (auto) 5.1 (1.3-6.7) K/mm3 Absolute Nucleated RBC 0.000 (0.0-0.012) K/mm3 Nucleated RBC % 0.0 (0.0-0.2) % PT 12.6 (11.1-14.7) Seconds INR 0.9 APTT 28.8 (22.3-36.8) Seconds Sodium 138 (137-145) mmol/L Potassium 4.4 (3.4-5.0) mmol/L Chloride 102 (98-107) mmol/L Carbon Dioxide 28 (22-30) mmol/L Anion Gap 8 (4-12) mmol/L BUN 15 (9-20) mg/dL Creatinine 0.67 L (0.7-1.3) mg/dL Estim Creat Clear Calc 75 ml/min Estimated GFR > 60 (59 - ) Glucose 111 H (65-110) mg/dL Calcium 9.2 (8.4-10.2) mg/dL Total Bilirubin 0.5 (0.2-1.3) mg/dL AST 34 (17-59) U/L ALT 25 (6-50) U/L Alkaline Phosphatase 99 (38-126) U/L Total Protein 7.0 (6.3-8.2) g/dL Albumin 3.7 (3.5-5.1) g/dL Urine Color Yellow (Yellow) Urine Appearance Clear (Clear) Urine pH 7.0 (5.0-9.0) Ur Specific [place] 1.011 (1.001-1.035) Urine Protein Negative (Negative) mg/dL Urine Glucose (UA) Negative (Negative) mg/dL Urine Ketones Negative (Negative) mg/dL Ur Blood (Man) 3+ H (Negative) Urine Nitrate Negative (Negative) Urine Bilirubin Negative (Negative) Urine Urobilinogen 0.2 (<2.0) mg/dL Leukocyte Esterase Rfl Negative (Negative) MYLES/UL Urine RBC >100 H (0-2) /hpf Urine WBC 0-5 (0-3) /hpf Ur Squamous Epith Cells None seen (Few) /hpf Urine Bacteria None seen /hpf Urine Casts 0-2 Imaging Data Radiologist's impression: Impressions Abdomen/Pelvis CT 05/24/24 18:27 IMPRESSION: No acute intra-abdominal process, as detailed above. Discharge Plan Discharge Clinical Impression: Hematuria Patient Disposition: Home, Self-Care Condition: Stable Instructions: Antibiotic Form, Hematuria (ED) Additional Instructions: Have close follow-up with Urology. If you have any worsening symptoms then please call or return to the emergency department. Patient Language: Welsh Prescriptions: No Action meloxicam 15 mg tablet 15 mg PO DAILY methotrexate sodium 2.5 mg tablet 2.5 mg PO DAILY omeprazole 20 mg capsule,delayed release(DR/EC) 20 mg PO DAILY alendronate 70 mg tablet 70 mg PO DAILY leflunomide 10 mg tablet 10 mg PO DAILY ergocalciferol (vitamin D2) 1,250 mcg (50,000 unit) capsule 1,250 mcg PO DAILY prednisone 2.5 mg tablet 2.5 mg PO DAILY folic acid 1 mg tablet 1 mg PO DAILY doxycycline monohydrate 100 mg capsule 100 mg PO BID 7 Days Qty: 14 0RF Follow-up/Referrals: Josh Villanueva MD [Physician] - Jl Jordan MD [Primary Care Provider] -
--- OUTSIDE RECORDS SUMMARY | 2024-05-24 18:01 | XMS_ITS | Clinical Summary ---
Author Organization [facility] Address [address] [place] [id number] Care Team Providers Care Caramel Cutter Helper Name Role Phone Unavailable Primary Care [...]
--- OUTSIDE RECORDS SUMMARY | 2024-05-24 18:01 | XMS_ITS | Encounter Summary ---
Author Organization [facility] Health Address [address] [place] [address] Care Team Providers Care Multiple Drum Sander Helper Name Role Phone Jl Jordan MD Primary Care Provider [phone] Real Montalvo MD Unavailable [phone] Hamilton Quintanilla MD Unavailable Reason for Visit * Reason Onset Date Comments Appointment 04/26/2021 Encounter Details Date Type Department Care Team (Late st Contact Info) Description 04/26/2021 Telephone [facility] [address] [place] [address] Mustapha Easton MD [address] OF PULMONARY/[place] [address] Appointment Social History Tobacco Use [...] COVID-19? No / Unsure 04/20/2021 3:29 PM PLASTIC SURGERY SPECIALIST documented as of this encounter Miscellaneous Notes * Telephone Encounter - Maura Lambert - 04/26/2021 9:32 AM CST Good Morning Patient was unsure rather he need to schedule a test to check his lungs before he see Dr. Easton. Patient would like speak with someone regarding his test. Thank you TIC SURGERY SPECIALIST documented in this encounter Plan of Treatment Not on file documented as of this encounter Visit Diagnoses Not on filedocumented in this encounter Care Teams Multiple Drum Sander Helper Relationship Specialty Start Date End Date Jl Jordan MD [address] [place] [id number] PCP - General 10/28/17 Real Montalvo MD [address] [place] [address] [place] [phone] Resident Rheumatology 10/14/22 Hamilton Quintanilla MD [address] [place] [phone] Poultry Farmer Meat Rheumatology 10/14/22 documented as of this encounter
--- OUTSIDE RECORDS SUMMARY | 2024-05-24 18:01 | XMS_ITS | Referral Summary ---
Author Organization [facility] Address [address] [place] [address] Care Team Providers Care Games Dealer Name Role Phone Jl Jordan MD Primary Care Provider [phone] Real Montalvo MD Unavailable [phone] Hamilton Quintanilla MD Unavailable Source Comments [facility],non-owned Affiliates and Associated Physician Practices is amultiple site organization consisting of ambulatory clinics and hospital sitesin [place], [place], [place] and [place]. This disclosure is being madepursuant to the Care Everywhere program and may not contain all information available regarding this patient. Last updated 18.[facility] Allergies No known active allergies Medications [...] CDT Respiratory Rate 18 03/28/2023 8:51 AM POWDER EXPERT Oxygen Saturation 95% 07/02/2023 9:55 AM CDT Inhaled Oxygen Concentration - - Weight 56.7 kg (125 lb) 07/02/2023 9:55 AM CDT Height 170.2 cm (5' 7 ) 07/02/2023 9:55 AM CDT Body Mass Index 19.58 07/02/2023 9:55 AM CDT Plan of Treatment Not on file Procedures Procedure Name Priority Date/Time Associated Diagnosis Comments HEPATITIS C ANTIBODY Routine 04/20/2021 3:59 PM POWDER EXPERT Seropositive rheumatoid arthritis (HCC) CT LUNG SCREEN LOW DOSE Routine 05/11/2020 8:16 AM POWDER EXPERT Tobacco abuse disorder from Last 3 Months or Most Recently Relevant to Health Maintenance Results * HEPATITIS C ANTIBODY (04/20/2021 3:59 PM POWDER EXPERT) Hepatitis C Antibody Non-react marlon Non-reac tive 04/20/2021 6:43 PM POWDER EXPERT [facility] Comment:Hepatitis C Antibody screen indicates [...] Lab Venipuncture / Unknown 04/20/2021 3:59 PM POWDER EXPERT 04/20/2021 4:49 PM POWDER EXPERT Yoli Olivera MD LAB - CHEMISTRY ORDERABLES Performing Organization Address City/State/[facility] Co de Phone Number [facility] [address] [address], [facility] [phone] * CT LUNG SCREEN LOW DOSE (05/11/2020 8:16 AM POWDER EXPERT) Anatomical Region Laterality Modality Chest Computed Tomogra phy 05/11/2020 8:18 AM POWDER EXPERT Impressions 05/11/2020 10:50 AM POWDER EXPERT Impression: 8 mm pleural-based pulmonary nodule in [...] 10:50 AM . Narrative 05/11/2020 10:50 AM POWDER EXPERT Procedure Information DATE: 05/11/2020 8:17 AM EXAMINATION: [...] Recently Relevant to Health Maintenance Care Teams Games Dealer Relationship Specialty Start Date End Date Jl Jordan MD [address] [address] PCP - General 10/28/17 Real Montalvo MD [facility] [place] [address] Resident Rheumatology 10/14/22 Hamilton Quintanilla MD [facility] [place] [phone] Cotton Baler Rheumatology 10/14/22
--- OUTSIDE RECORDS SUMMARY | 2024-05-24 18:01 | XMS_ITS | Clinical Summary ---
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 Not on file Not on file Obstetrics History Last Filed Vital Signs Vital Sign Reading Time Taken Comments Blood Pressure 124/80 06/18/2018 8:53 AM COMPOSITE ASSEMBLER Pulse 92 06/18/2018 8:53 AM COMPOSITE ASSEMBLER Temperature 36.2 C (97.1 F) 06/18/2018 8:53 AM COMPOSITE ASSEMBLER Respiratory Rate 18 06/18/2018 8:53 AM COMPOSITE ASSEMBLER Oxygen Saturation 96% 06/18/2018 8:53 AM COMPOSITE ASSEMBLER Inhaled Oxygen Concentration - - Weight 59 kg (130 lb) 06/18/2018 8:53 AM COMPOSITE ASSEMBLER Height 170.2 cm (5' 7 ) 06/18/2018 8:53 AM COMPOSITE ASSEMBLER Body Mass Index 20.36 06/18/2018 8:53 AM COMPOSITE ASSEMBLER Plan of Treatment Not on file Insurance [employer] [facility] Care Teams Game Master Relationship Specialty Start Date End Date Jl Jordan MD PCP - General Emergency Medicine 09/22/17
--- OUTSIDE RECORDS SUMMARY | 2024-05-24 18:01 | XMS_ITS | Patient Health Summary ---
Author Organization [facility] Address [address] [place] [address] Care Team Providers Care State Trooper Name Role Phone Jl Jordan MD Primary Care Provider [phone] Real Montalvo MD Unavailable [phone] Hamilton Quintanilla MD Unavailable Note from [facility],non-owned Affiliates and Associated Physician Practices is amultiple site organization consisting of ambulatory clinics and hospital sitesin [place], [place], [place] and [place]. This disclosure is being madepursuant to the Care Everywhere program and may not contain all information available regarding this patient. Last updated 18.[facility] Allergies No known active allergies Medications * [...] CDT Respiratory Rate 18 03/28/2023 8:51 AM PSYCHIATRIC NP Oxygen Saturation 95% 07/02/2023 9:55 AM CDT [...] PANEL(Performed 03/12/2023) 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, intermediate frame tender current use of immunosuppressive drug * CBC W AUTO DIFFERENTIAL(Performed 03/12/2023) 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, MCFP current use of immunosuppressive drug * QUANTIFERON-TB GOLD PLUS 4-TUBE(Performed 03/12/2023) Performed for Seropositive rheumatoid arthritis (HCC), intermediate frame tender current use of immunosuppressive drug, Tuberculosis screening [...] arthritis (HCC), High risk medication use * TN MSR PVR U&/BLADD CAPCTY US NON(Performed 12/14/2021) [...] SLU(Performed 09/21/2021) Performed for Urinary frequency * TN MSR PVR U&/BLADD CAPCTY US NON(Performed 09/21/2021) [...] 4-TUBE(Performed 08/24/2021) Performed for Screening-pulmonary TB * TN MSR PVR U&/BLADD CAPCTY US NON(Performed 08/24/2021) [...] arm weakness, Chronic right shoulder pain * TN DRAIN/INJECT LARGE JOINT/BURSA(Performed 04/24/2018) Performed for Right shoulder pain, unspecified chronicity, Rotator cuff syndrome of right shoulder,Osteoarthritis of right shoulder, unspecified osteoarthritis type * XR SHOULDER RIGHT 2VW OR MORE(Performed 11/21/2017) Performed for Right shoulder pain, unspecified chronicity Results * Complete PFT [facility] PFT Lab (08/13/2023 2:32 PM CDT) Impressions Mustapha Easton MD - 08/13/2023 2:32 PM CDT [facility] DEPARTMENT OF PULMONARY, CRITICAL CARE, AND [...] Frances MD Pulmonary and Critical Care Fellow [facility] Pager: [phone] I have personally reviewed pulmonary function test [...] 4.0 - 10.7 x10E9/L 08/13/2023 10:23 AM [facility] RBC Count 4.34 4.30 - 5.80 x10E12/L 08/13/2023 10:23 AM [facility] Hemoglobin 13.7 13.3 - 17.5 g/dL 08/13/2023 10:23 AM [facility] Hematocrit 40.5 38.7 - 51.1 % 08/13/2023 10:23 AM [facility] MCV 93.3 80.0 - 98.0 fL 08/13/2023 10:23 AM [facility] MCH 31.6 26.7 - 33.6 pg 08/13/2023 10:23 AM [facility] MCHC 33.8 31.7 - 36.3 g/dL 08/13/2023 10:23 AM [facility] RDW-CV 14.1 11.3 - 14.8 % 08/13/2023 10:23 AM [facility] Platelet Count 269 150 - 420 x10E9/L 08/13/2023 10:23 AM [facility] MPV 10.0 7.8 - 11.4 fL 08/13/2023 10:23 AM [facility] Neutrophil % 63.4 41.0 - 74.0 % 08/13/2023 10:23 AM [facility] Lymphocyte % 20.1 17.0 - 47.0 % 08/13/2023 10:23 AM [facility] Monocyte % 8.4 3.0 - 11.0 % 08/13/2023 10:23 AM [facility] Eosinophil % 6.0 0.0 - 7.0 % 08/13/2023 10:23 AM [facility] Basophil % 1.1 0.0 - 1.6 % 08/13/2023 10:23 AM [facility] Immature Granulocytes % 1.0 0.0 - 1.0 % 08/13/2023 10:23 AM [facility] Neutrophil Absolute 4.58 1.60 - 7.50 x10E9/L 08/13/2023 10:23 AM [facility] Lymphocyte Absolute 1.45 1.00 - 4.40 x10E9/L 08/13/2023 10:23 AM [facility] Monocyte Absolute 0.61 0.15 - 1.00 x10E9/L 08/13/2023 10:23 AM [facility] Eosinophil Absolute 0.43 0.00 - 0.60 x10E9/L 08/13/2023 10:23 AM [facility] Basophil Absolute 0.08 0.00 - 0.13 x10E9/L 08/13/2023 10:23 AM [facility] Blood BLOOD SPECIMEN / Unknown Lab Venipuncture / Unknown 08/13/2023 9:50 AM CDT 08/13/2023 10:09 AM CDT Hamilton Quintanilla MD LAB - HEMATOLOGY ORD ERABLES [facility] [address] [place] [address], [facility] [phone] * (ABNORMAL) COMPREHENSIVE METABOLIC PANEL (08/13/2023 9:50 AM CDT) Only the most recent of15 resultswithin the time period is included. BUN 14 7 - 26 mg/dL 08/13/2023 10:42 AM [facility] Creatinine 0.63(L) 0.71 - 1.16 mg/dL 08/13/2023 10:42 AM [facility] Sodium 140 136 - 145 mmol/L 08/13/2023 10:42 AM [facility] Potassium 4.4 3.5 - 4.5 mmol/L 08/13/2023 10:42 AM [facility] Chloride 107 98 - 107 mmol/L 08/13/2023 10:42 AM [facility] CO2 27 22 - 29 mmol/L 08/13/2023 10:42 AM [facility] Glucose 114 70 - 115 mg/dL 08/13/2023 10:42 AM [facility] Calcium 8.9 8.4 - 10.2 mg/dL 08/13/2023 10:42 AM [facility] Protein Total 6.3 6.0 - 8.3 g/dL 08/13/2023 10:42 AM [facility] Albumin 3.2(L) 3.4 - 5.0 g/dL 08/13/2023 10:42 AM [facility] Bilirubin Total 0.3 0.2 - 1.2 mg/dL 08/13/2023 10:42 AM [facility] Alkaline Phosphatase 91 40 - 150 U/L 08/13/2023 10:42 AM [facility] ALT 16 5 - 55 U/L 08/13/2023 10:42 AM [facility] AST 21 5 - 34 U/L 08/13/2023 10:42 AM [facility] Anion Gap 6 6 - 16 08/13/2023 10:42 AM [facility] BUN/Creatinine Ratio 22 7 - 23 08/13/2023 10:42 AM [facility] Osmolality Calculated 291 275 - 295 mOsm/kg 08/13/2023 10:42 AM [facility] Albumin/Globulin Ratio 1.0(L) 1.1 - 2.3 08/13/2023 10:42 AM [facility] eGFR by CKD-EPI >90 >=90 mL/min/1.7 3 m2 08/13/2023 10:42 AM [facility] Blood BLOOD SPECIMEN / Unknown Lab Venipuncture / Unknown 08/13/2023 9:50 AM T 08/13/2023 10:[address] [facility] Hamilton Quintanilla MD LAB - CHEMISTRY MIHIR DUBOSE [facility] Organization Address City/State/ZIP Co de Phone Number [address] [address], [facility] [phone] * C-REACTIVE PROTEIN (06/04/2023 11:44 AM PSYCHIATRIC NP) Only the most recent of13 resultswithin the time period is included. Pathologist [facility] C-Reactive Protein <0.5 <=0.5 mg/dL 06/04/2023 12:30 PM PSYCHIATRIC NP [facility] Blood BLOOD SPECIMEN / Unknown Lab Venipuncture / Unknown 06/04/2023 11:44 AM PSYCHIATRIC NP 06/04/2023 12:04 PM PSYCHIATRIC NP Hamilton Quintanilla MD LAB - CHEMISTRY MIHIR DUBOSE [address] [address], [facility] [phone] * (ABNORMAL) ERYTHROCYTE SEDIMENTATION RATE (06/04/2023 11:44 AM PSYCHIATRIC NP) Only the most recent of15 resultswithin the time period is included. [facility] Erythrocyte Sedimentation Rate Westergren 29(H) 0 - 20 MM/HR 06/04/2023 12:16 PM PSYCHIATRIC NP [facility] Blood BLOOD SPECIMEN / Unknown Lab Venipuncture / Unknown 06/04/2023 11:44 AM PSYCHIATRIC NP 06/04/2023 12:04 PM PSYCHIATRIC NP Hamilton Quintanilla MD LAB - HEMATOLOGY ORD RINA [address] [address], [facility] [phone] * QUANTIFERON-TB GOLD PLUS 4-TUBE (03/12/2023 10:17 AM PSYCHIATRIC NP) Only the most recent of2 resultswithin the time period is included. [facility] QuantiFERON NIL 0.02 IU/mL 4:56 PM PSYCHIATRIC NP [facility] ([facility]) Comment: Performed By: [facility] [address] [place] [id number] Brass Burnisher: Dewey Scott MD, PhD CLIA Number: [id number] QuantiFERON TB Gold Plus Negative Negative 03/14/2023 4:56 PM PSYCHIATRIC NP [place] ([facility]) Comment: Interpretive Data: Quantiferon TB Gold Plus [...] Mycobacterium tuberculosis Infection --- [place], 2010 (http://www.cdc.gov/mmwr/preview/mmwrhtml/gi7415k1.htm), for more information concerning test performance in low-prevalence populations and use in occupational screening. QuantiFERON Plus TB1 Minus NIL 0.00 0.00 - 0.34 IU/mL 03/14/2023 4:56 PM PSYCHIATRIC NP [place] ([facility]) QuantiFERON Plus TB2 Minus NIL 0.00 0.00 - 0.34 IU/mL 03/14/2023 4:56 PM PSYCHIATRIC NP [place] ([facility]) QuantiFERON Mitogen Minus NIL >10.00 IU/mL 03/14/2023 4:56 PM PSYCHIATRIC NP [facility] [employer] [facility]) Blood BLOOD SPECIMEN / Unknown Lab Venipuncture / Unknown 03/12/2023 10:17 AM PSYCHIATRIC NP 03/12/2023 10:33 AM PSYCHIATRIC NP Hamilton Quintanilla MD LAB - CHEMISTRY MIHIR Clark Organization Address City/State/ZIP Co de Phone Number [facility]) [address] [place] [address], [facility] * XR FOOT RIGHT 3VW OR MORE [...] if blank. Indication: M05.9: Seropositive rheumatoid arthritis ([facility]) Additional History: COMPARISON: Right and left hand [...] if blank. Indication: M05.9: Seropositive rheumatoid arthritis ([facility]) Additional History: COMPARISON: Right and left hand [...] if blank. Indication: M05.9: Seropositive rheumatoid arthritis ([facility]) Additional History: COMPARISON: Right and left hand [...] if blank. Indication: M05.9: Seropositive rheumatoid arthritis ([facility]) Additional History: COMPARISON: Right and left hand [...] and fifth metatarsal base. Procedure Note Daniel oLckwood MD - 12/11/2022 PROCEDURE: XR HAND RIGHT [...] by Álvaro Blanco MD, PhD (vice president of operations). ITrina MD have personally reviewed and interpreted this examination/study. > Interpreting Provider: Trina Alonso MD on 12/13/2022 11:00 AM Narrative 12/13/2022 11:00 AM CDT PROCEDURE: XR CERVICAL SPINE 4 OR 5VW, DATE/TIME OF EXAM: 12/11/2022 11:16 AM, LOCATION [facility] INDICATION: M05.9: Seropositive rheumatoid arthritis ([facility]) ADDITIONAL CLINICAL INFORMATION: Ordering Provider Reason For [...] 5VW, DATE/TIME OF EXAM: 1:16 AM, LOCATION [facility] INDICATION: M05.9: Seropositive rheumatoid arthritis ([facility]) ADDITIONAL CLINICAL INFORMATION: Ordering Provider Reason For Exam: Technologist Note: Additional: COMPARISON: None. FINDINGS: Alignment is normal in neutral position. There is mild reversal of the cervical lordosis in the lower spine. With flexion, the predentalinterval increases to 3 mm (from 0) and reduces completely with extension. Slight anterior subluxation with flexion occurs at C2-C3, C3-C4, and C4-V7zznhg can be physiologic. There is moderate disc space narrowing andosteophyte formation between C5 and T1. Facet arthropathy is seen, greatest in themid cervical spine. There is no fracture or compression deformity.Prevertebral soft tissues are normal. IMPRESSION: Mild subluxation of C1 on C2 with flexion. Moderate multilevel degenerative disc and joint disease. Report dictated by Álvaro Blanco MD, PhD (vice president of operations). Trina Blas MD have personally reviewed and [...] report was drafted by Tonia Cordero MD (Rack Puller). > Dictated by Tonia Cordero (Rack Puller) 08/28/2022 7:59 AM I, Efrain Lau MD [...] and also first interphalangeal joints. Procedure Note Efrain Lau MD - 08/28/2022 PROCEDURE: PET CT WHOLE BODY DATE/TIME OF EXAM: 08/28/2022 8:05 AM CLINICAL INFORMATION: None relevant/not provided if blank. Indication: R91.1: Lung nodule COMPARISON: None. Referring Physician: Dr. Mustapha Easton HISTORY: 67-year-old [facility] 4B. Evaluate [...] report was drafted by Tonia Cordero MD (Rack Puller). > Dictated by Tonia Cordero (Rack Puller) 08/28/2022 7:59AM I, Efrain Lau MD have personally reviewed and interpreted this examination/study. > Interpreting Provider: Efrain Lau MD on 08/28/2022 4:46 PM Mustapha Easton MD [place] ORDERABLES * (ABNORMAL) GLUCOSE SCREEN - POCT (IP) [facility] (08/28/2022 6:33 AM CDT) Glucose WB/POC 121(A) 70 - 115 mg/dL [facility] POCT TESTING Blood BLOOD SPECIMEN / Unknown 08/28/2022 6:33 AM CDT Mustapha Easton MD LAB - POINT OF CARE ORDERABLES [facility] POCT TESTING [address] [place] [address], [place] [phone] * TN MSR PVR U&/BLADD CAPCTY US NON (12/14/2021 1:58 PM CDT) Narrative Zuri Rust LPN - 12/14/2021 1:58 PM CDT Zuri Rust LPN 12/14/2021 2:00 PM PVR= 71 ML Sharlene Moss APRN-COMPUTER ARCHITECT PROCEDURE/MINOR SURGICAL ORDERABLES * URINALYSIS AUTO - POINT OF CARE (AMB) U (12/14/2021) Only the most recent of3 resultswithin the time period is included. Glucose UA neg Bilirubin UA POCT neg Ketones UA POCT 5 mg/dL Specific [place] UA 1.025 Blood Urine POCT neg pH UA 6.5 Protein UA neg Urobilinogen UA 0.2 mg/dL Nitrite UA neg WBC UA neg Urine URINE / Unknown 12/14/2021 Sharlene Moss APRN-COMPUTER ARCHITECT LAB - POINT OF CARE ORDERABLES * ALT (11/21/2021 12:30 PM CDT) Pathologist [facility] ALT 29 5 - 55 U/L 11/21/2021 1:43 PM CDT [facility] Blood BLOOD SPECIMEN / Unknown Lab Venipuncture / Unknown 11/21/2021 12:30 PM CDT 11/21/2021 1:07 PM CDT Hamilton Quintanilla MD LAB - CHEMISTRY MIHIR DUBOSE [facility] [address] [place] [address], [place] [phone] * AST BLOOD (11/21/2021 12:30 PM CDT) AST 30 5 - 34 U/L 11/21/2021 1:43 PM CDT [facility] Blood BLOOD SPECIMEN / Unknown Lab Venipuncture / Unknown 11/21/2021 12:30 PM CDT 11/21/2021 1:07 PM CDT Hamilton Quintanilla MD LAB - CHEMISTRY MIHIR DUBOSE [facility] [address] [place] [address], [place] [phone] * CREATININE BLOOD (11/21/2021 12:30 PM CDT) Creatinine 0.75 0.71 - 1.16 mg/dL 11/21/2021 1:43 PM CDT [facility] eGFR by CKD-EPI >90 >=90 mL/min/1.7 3 m2 11/21/2021 1:43 PM CDT [facility] Blood BLOOD SPECIMEN / Unknown Lab Venipuncture / Unknown 11/21/2021 12:30 PM CDT 11/21/2021 1:07 PM CDT Hamilton Quintanilla MD LAB - CHEMISTRY MIHIR DUBOSE Performing Organization Address City/[facility]/ZIP Co de Phone Number [address] [address], [place] [phone] * (ABNORMAL) BUN (11/21/2021 12:30 PM CDT) BUN 27(H) 7 - 26 mg/dL 11/21/2021 1:43 PM CDT [facility] Blood BLOOD SPECIMEN / Unknown Lab Venipuncture / Unknown 11/21/2021 12:30 PM CDT 11/21/2021 1:07 PM CDT Hamilton Quintanilla MD LAB - CHEMISTRY MIHIR DUBOSE [address] [address], [place] [phone] * TN MSR PVR U&/BLADD CAPCTY US NON (09/21/2021 3:25 PM CDT) Narrative Shruti Toscano MA - 09/21/2021 3:25 PM CDT Shruti Toscano MA 09/21/2021 3:28 PM PVR=25ML Sharlene Moss HEAD TURNING MACHINE OPERATOR-COMPUTER ARCHITECT PROCEDURE/MINOR SURGICAL ORDERABLES * (ABNORMAL) URINALYSIS W/MICROSCOPIC NO CULTURE (08/24/2021 12:21 PM CDT) Color UA Straw Straw, Yellow 08/24/2021 12:50 PM [facility] Clarity UA Clear Clear 08/24/2021 12:50 PM [facility] Specific [place] UA 1.002(L) 1.005 - 1.030 08/24/2021 12:50 PM [facility] pH UA 7.0 5.0 - 8.0 pH 08/24/2021 12:50 PM [facility] Protein UA Negative Negative 08/24/2021 12:50 PM [facility] Glucose UA Negative Negative 08/24/2021 12:50 PM [facility] Ketone UA Negative Negative 08/24/2021 12:50 PM [facility] Bilirubin UA Negative Negative 08/24/2021 12:50 PM [facility] Blood UA Negative Negative 08/24/2021 12:50 PM [facility] Nitrite UA Negative Negative 08/24/2021 12:50 PM [facility] Leukocyte Esterase Negative Negative 08/24/2021 12:50 PM [facility] Urobilinogen UA Negative Negative mg/dL 08/24/2021 12:50 PM [facility] RBC UA None Seen None Seen, 0-2, 3-5 /HPF 08/24/2021 12:50 PM [facility] WBC UA None Seen None Seen, 0-5 /HPF 08/24/2021 12:50 PM [facility] Squamous Epithelial Cells UA None Seen None Seen, 0-2, 3-5 /HPF 08/24/2021 12:50 PM [facility] Urine URINE SPECIMEN OBTAINED BY CLEAN CATCH PROCEDURE / Unknown Collection / Unknown 08/24/2021 12:21 PM CDT 08/24/2021 12:40 PM CDT Narrative [facility] - 08/24/2021 12:50 PM CDT Sharlene Moss HEAD TURNING MACHINE OPERATOR-COMPUTER ARCHITECT LAB - URINALYSI S ORDERABLES [facility] [address] [place] [address], [facility] [phone] * (ABNORMAL) PSA FREE + TOTAL PANEL (08/24/2021 12:21 PM CDT) PSA Total 4.2(H) 0.0 - 4.0 ng/mL 08/24/2021 1:32 PM CDT [facility] PSA Free 0.78(H) 0.00 - 0.50 ng/mL 08/24/2021 1:32 PM T [facility] PSA % Free 19 See Comment % 08/24/2021 1:32 PM T [facility] Comment: [facility] Clinical Laboratory uses the [employer] Medical Review Coordinator method for Total and Free PSA measurements. [...] Free and/or Total PSA alone. Distribution of PAVING FOREMAN % Free PSA Values for specimens with PAVING FOREMAN Total PSA values between 4.0 and 10.0 ng/mL: % Free PSA Ranges <10.0 10.0-15.0 15.0-20.0 20.0-26.0 >26.0 Number of ----- --------- --------- --------- ----- Subjects Biopsy --------- ------ Negative 307 9.4 22.5 25.4 24.8 17.9 Positive 123 27.6 30.9 17.9 15.4 8.1 PSA % Free 08/24/2021 1:32 PM T [facility] Blood BLOOD SPECIMEN / Unknown Lab Venipuncture / Unknown 08/24/2021 12:21 PM CDT 08/24/2021 12:44 PM CDT Sharlene THAKKAR LAB - CHEMISTRY ORDERABLES Performing Organization Address [facility]/ZIP Co de Phone Number [facility] [address] [place] [address], [facility] [phone] * TN MSR PVR U&/BLADD CAPCTY US NON (08/24/2021 11:49 AM CDT) Narrative Deann Carnes RN - 08/24/2021 11:49 AM CDT Deann Carnes RN 08/24/2021 11:49 AM Bladder scan completed. 130 ml post void residual. Sharlene THAKKAR PROCEDURE/MINOR SURGICAL ORDERABLES * VITAMIN D 25-HYDROXY (04/20/2021 3:59 PM PSYCHIATRIC NP) Pathologist [facility] Vitamin D, 25 Hydroxy 55.0 30.0 - 80.0 ng/mL 04/20/2021 5:42 PM PSYCHIATRIC NP [facility] Comment: The recommendations for 25-Hydroxy Vitamin [...] Lab Venipuncture / Unknown 04/20/2021 3:59 PM PSYCHIATRIC NP 04/20/2021 4:56 PM PSYCHIATRIC NP Yoli Olivera MD LAB - CHEMISTRY ORDERABLES [facility] [address] [place] [address], [place] [phone] * HEPATITIS B SURFACE ANTIBODY (04/20/2021 3:59 PM PSYCHIATRIC NP) Hepatitis B Virus Surface Antibody Non-react marlon Non-react marlon 04/20/2021 6:43 PM PSYCHIATRIC NP [facility] Comment: < 8 mIU/mL Hepatitis B surface Antibody (HBsAb). Nonreactive for HBsAb - individual is considered not immune to Hepatitis B Virus infection. Hepatitis B Surface Antibody Quantitative 0.0 <8.0 mIU/mL 04/20/2021 6:43 PM PSYCHIATRIC NP [facility] Comment: Hepatitis B Surface Antibody Numeric Result Interpretation: Nonreactive: <8.0 mIU/mL Indeterminate: 8.0 - 12.0 mIU/mL Reactive: >12.0 mIU/mL Blood BLOOD SPECIMEN / Unknown Lab Venipuncture / Unknown 04/20/2021 3:59 PM PSYCHIATRIC NP 04/20/2021 4:49 PM PSYCHIATRIC NP Yoli Olivera MD LAB - CHEMISTRY ORDERABLES Performing Organization Address City/[facility]/ZIP Co de Phone Number [address] [address], [facility] [phone] * HEPATITIS B CORE ANTIBODY (04/20/2021 3:59 PM PSYCHIATRIC NP) HBc Antibody Total Non-reacti ve Non-reacti ve 04/20/2021 6:43 PM PSYCHIATRIC NP [facility] Blood BLOOD SPECIMEN / Unknown Lab Venipuncture / Unknown 04/20/2021 3:59 PM PSYCHIATRIC NP 04/20/2021 4:49 PM PSYCHIATRIC NP Yoli Olivera MD LAB - CHEMISTRY ORDERABLES [address] [address], [facility] [phone] * HEPATITIS B SURFACE ANTIGEN W RFLX CONFIRMATION (04/20/2021 3:59 PM PSYCHIATRIC NP) Hepatitis B Virus Surface Antigen Non-reacti ve Non-reacti ve 04/20/2021 6:43 PM PSYCHIATRIC NP [facility] Blood BLOOD SPECIMEN / Unknown Lab Venipuncture / Unknown 04/20/2021 3:59 PM PSYCHIATRIC NP 04/20/2021 4:49 PM PSYCHIATRIC NP Yoli Olivera MD LAB - CHEMISTRY ORDERABLES Performing Organization Address City/[facility]/ZIP Co de Phone Number [address] [address], [facility] [phone] * HEPATITIS C ANTIBODY (04/20/2021 3:59 PM PSYCHIATRIC NP) Pathologist [facility] Hepatitis C Antibody Non-react marlon Non-reac tive 04/20/2021 6:43 PM PSYCHIATRIC NP [facility] Comment:Hepatitis C Antibody screen indicates no serologic evidence of past or current infection with Hepatitis C Virus. Patients with unexplained liver disease who are immunocompromised or suspected of having acute Hepatitis C infection may benefit from Nucleic Acid Test (TONNY) for Hepatitis C Viral RNA to confirm Hepatitis C status. Blood BLOOD SPECIMEN / Unknown Lab Venipuncture / Unknown 04/20/2021 3:59 PM PSYCHIATRIC NP 04/20/2021 4:49 PM PSYCHIATRIC NP Yoli Olivera MD LAB - CHEMISTRY ORDERABLES Performing Organization Address [facility] Co de Phone Number [address] [address], [facility] [phone] * CULTURE URINE REFLEXED I (08/24/2020 3:06 PM CDT) Only the most recent of4 resultswithin the time period is included. Pathologist [facility] Reflexive Urine Culture See Below [facility] Comment: NO CULTURE INDICATED Test Performed at: [facility] [place] [address] [place] [address] BENOIT FOSS DO,MPH 08/24/2020 3:06 PM CDT 08/24/2020 3:07 PM CDT Yoli Olivera MD LAB - MICROBIOL OGY ORDERABLES Performing Organization Address City/[facility]/ZIP Co de Phone Number [facility] [address] [place] [address] * URINALYSIS W/MICROSCOPIC REFLEX TO CULTURE (08/24/2020 3:06 PM CDT) Only the most recent of8 resultswithin the time period is included. Color UA YELLOW YELLOW [facility] Appearance CLEAR CLEAR [facility] Specific [place] UA 1.007 1.001 - 1.035 [facility] pH [...] SEEN /LPF [facility] Comment: Test Performed at: [facility] [address] [place] [address] BENOIT FOSS DO,MPH Urine URINE SPECIMEN OBTAINED BY CLEAN CATCH PROCEDURE / Unknown 08/24/2020 3:06 PM CDT 08/24/2020 3:07 PM CDT Yoli Olivera MD LAB - URINALYSI S ORDERABLES [facility] [address] [place] [phone] * CT LUNG SCREEN LOW DOSE (05/11/2020 8:16 AM PSYCHIATRIC NP) Anatomical Region Laterality Modality Chest Computed Tomogra phy 05/11/2020 8:18 AM PSYCHIATRIC NP Impressions 05/11/2020 10:50 AM PSYCHIATRIC NP Impression: 8 mm pleural-based pulmonary nodule in [...] 10:50 AM . Narrative 05/11/2020 10:50 AM PSYCHIATRIC NP Procedure Information DATE: 05/11/2020 8:17 AM EXAMINATION: [...] QUANTIFERON-TB GOLD PLUS 1-TUBE (05/10/2020 3:06 PM PSYCHIATRIC NP) Only the most recent of2 resultswithin the [...] T-lymphocytes. For additional information, please refer to [email or web address]/faq/[email or web address] (This link is being provided for informational/ educational purposes only.) REPORT COMMENT: FASTING:NO Test Performed at: [facility] [id number] [place] [address] BENOIT FOSS DO,MPH 05/10/2020 3:06 PM PSYCHIATRIC NP 05/10/2020 3:07 PM PSYCHIATRIC NP Yoli Olivera MD LAB - CHEMISTRY ORDERABLES Performing Organization Address [facility] de Phone Number [address] [address] * CBC W/O DIFFERENTIAL (02/02/2020 11:11 AM [...] 12.5 fL [facility] Comment: Test Performed at: [facility] [address] JAX ARCEO MD Blood BLOOD SPECIMEN / Unknown 02/02/2020 11:11 AM CDT 02/02/2020 11:12 AM CDT Yoli Olivera MD LAB - HEMATOLOG Y ORDERABLES Performing Organization Address [facility] Co de Phone Number [address] [address] * (ABNORMAL) URIC ACID BLOOD (10/27/2019 11:50 AM CDT) Uric Acid 3.1(L) 4.0 - 8.0 mg/dL [facility] Comment: Therapeutic target for gout patients: <6.0 mg/dL Test Performed at: [facility] [place] [id number] [place] [address] BENOIT FOSS DO,MPH 10/27/2019 11:5 0 AM CDT 10/27/2019 11:55 AM CDT Hector Dominguez MD LAB - CHEMISTRY MIHIR DUBOSE Performing Organization Address [facility] de Phone Number [address] [address] * (ABNORMAL) URINALYSIS REFLEX TO MICROSCOPIC NO CULTURE (10/27/2019 11:50 AM CDT) Color UA YELLOW YELLOW [facility] Appearance CLEAR CLEAR [facility] Specific [place] UA 1.025 1.001 - 1.035 [facility] pH [...] SEEN /LPF [facility] Comment: Test Performed at: [place] [id number] BENOIT FOSS DO,MPH 10/27/2019 11:5 0 AM CDT 10/27/2019 11:55 AM CDT Hector Dominguez MD LAB - URINALYSIS ORD ERABLES Performing Organization Address [facility] de Phone Number [address] [address] * (ABNORMAL) RHEUMATOID FACTOR BLOOD QUANTITATIVE (10/27/2019 11:50 AM CDT) Rheumatoid Factor 199(H) <14 IU/mL [facility] Comment: Test Performed at: [place] [id number] [place] [address] BENOIT FOSS DO,MPH 10/27/2019 11:5 0 AM CDT 10/27/2019 11:55 AM CDT Hector Dominguez MD LAB - CHEMISTRY MIHIR DUBOSE Performing Organization Address [facility] de Phone Number [address] [address] * (ABNORMAL) CYCLIC CITRULLINATED PEPTIDE(CCP) AB IGG (10/27/2019 11:50 AM CDT) Cyclic Citrullinated Peptide Antibody IgG >250(H) UNITS [facility] Comment: Reference Range Negative: <20 Weak Positive: 20-39 Moderate Positive: 40-59 Strong Positive: >59 Test Performed at: [facility] [address] [place] [address] BENOIT FOSS DO,MPH 10/27/2019 11:5 0 AM CDT 10/27/2019 11:55 AM CDT Hector Dominguez MD LAB - CHEMISTRY MIHIR DUBOSE [facility] [address] [place] [address] * MRI SHOULDER RIGHT W CONTRAST (07/14/2018 [...] Dictated by Katia Puckett MD (vice president of operations). I, Dr. DANIEL LOCKWOOD MD have personally [...] over the the glenohumeral joint. There is gohjciqy-ey-vwrmth atrophy of the supraspinatus muscle and moderate atrophy of the infraspinatus muscle. The intra-articular contrast surrounds the subscapularis tendon and muscle. There is suggestion of nyxr-gs-ymdacwqq tendinosis of the subscapularis tendon. The teres [...] over the the glenohumeral joint. There is ukphpumt-ql-eizsne atrophy of the supraspinatus muscleand moderate atrophy of the infraspinatus muscle. The intra-articular contrast surrounds the subscapularis tendon and muscle. There is suggestion of jctq-yh-xzicjcie tendinosis of the subscapularis tendon. The teres [...] Dictated by Katia Puckett MD (vice president of operations). I, Dr. DANIEL LOCKWOOD MD have personally [...] disc extrusion with inferior migration to mid T3ylyuf. Endplates appear grossly intact. Normal marrow signal [...] Dictated by Katia Puckett MD (vice president of operations). I, Dr. DANIEL LOCKWOOD MD have personally [...] Dictated by Katia Puckett MD (vice president of operations). I, Dr. DANIEL LOCKWOOD MD have personally reviewed and interpreted this examination/study. This report was electronically signed by DANIEL LOCKWOOD MD on07/14/2018 1:48 PM . Hernandez M Begum DO FLUOROSCOPY ORDERABL ES * TN DRAIN/INJECT LARGE JOINT/BURSA (04/24/2018 10:50 AM PSYCHIATRIC NP) Narrative David Begum DO - 04/24/2018 10:50 AM PSYCHIATRIC NP David Begum DO 04/24/2018 10:50 AM INJECTION [...] Pedro Pablo Begum DO [facility] Care Teams State Trooper Relationship Specialty Start Date End Date Jl Jordan MD [address] [place] [address] PCP - General 10/28/17 Real Montalvo MD [address] [place] [address] [place] [address] Resident Rheumatology 10/14/22 Hamilton Quintanilla MD [address] [place] [phone] Emblem Maker Rheumatology 10/14/22
--- OUTSIDE RECORDS SUMMARY | 2024-05-24 18:01 | XMS_ITS | Referral Summary ---
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 Not on file Not on file Last Filed Vital Signs Vital Sign Reading Time Taken Comments Blood Pressure 124/80 06/18/2018 8:53 AM WRAPPER LEAF INSPECTOR Pulse 92 06/18/2018 8:53 AM WRAPPER LEAF INSPECTOR Temperature 36.2 C (97.1 F) 06/18/2018 8:53 AM WRAPPER LEAF INSPECTOR Respiratory Rate 18 06/18/2018 8:53 AM WRAPPER LEAF INSPECTOR Oxygen Saturation 96% 06/18/2018 8:53 AM WRAPPER LEAF INSPECTOR Inhaled Oxygen Concentration - - Weight 59 kg (130 lb) 06/18/2018 8:53 AM WRAPPER LEAF INSPECTOR Height 170.2 cm (5' 7 ) 06/18/2018 8:53 AM WRAPPER LEAF INSPECTOR Body Mass Index 20.36 06/18/2018 8:53 AM WRAPPER LEAF INSPECTOR Plan of Treatment Not on file Insurance IDPA [facility] Care Teams Staking Engineer Relationship Specialty Start Date End Date Jl Jordan MD PCP - General Emergency Medicine 09/22/17
--- OUTSIDE RECORDS SUMMARY | 2024-05-24 18:01 | XMS_ITS | Clinical Summary ---
Author Organization [facility] Address [address] [facility] [place] [address] Care Team Providers Care Shipmaster Name Role Phone Jl Jordan MD Primary Care Provider [phone] Real Montalvo MD Unavailable [phone] Hamilton Quintanilla MD Unavailable Source Comments [facility],non-owned Affiliates and Associated Physician Practices is amultiple site organization consisting of ambulatory clinics and hospital sitesin [place], [place], [place] and [place]. This disclosure is being madepursuant to the Care Everywhere program and may not contain all information available regarding this patient. Last updated 18.[facility] Allergies No known active allergies Medications * [...] CDT Respiratory Rate 18 03/28/2023 8:51 AM FACILITY DESIGNER Oxygen Saturation 95% 07/02/2023 9:55 AM CDT [...] HEPATITIS C ANTIBODY Routine 04/20/2021 3:59 PM FACILITY DESIGNER Seropositive rheumatoid arthritis (HCC) CT LUNG SCREEN LOW DOSE Routine 05/11/2020 8:16 AM FACILITY DESIGNER Tobacco abuse disorder from Last 3 Months or Most Recently Relevant to Health Maintenance Results * HEPATITIS C ANTIBODY (04/20/2021 3:59 PM FACILITY DESIGNER) Hepatitis C Antibody Non-react marlon Non-reac tive 04/20/2021 6:43 PM FACILITY DESIGNER [facility] Comment:Hepatitis C Antibody screen indicates no serologic evidence of past or current infection with Hepatitis C Virus. Patients with unexplained liver disease who are immunocompromised or suspected of having acute Hepatitis C infection may benefit from Nucleic Acid Test (TONNY) for Hepatitis C Viral RNA to confirm Hepatitis C status. Blood BLOOD SPECIMEN / Unknown Lab Venipuncture / Unknown 04/20/2021 3:59 PM FACILITY DESIGNER 04/20/2021 4:49 PM FACILITY DESIGNER Yoli Olivera MD LAB - CHEMISTRY ORDERABLES [address] [address], [facility] [phone] * CT LUNG SCREEN LOW DOSE (05/11/2020 8:16 AM FACILITY DESIGNER) Anatomical Region Laterality Modality Chest Computed Tomogra phy 05/11/2020 8:18 AM FACILITY DESIGNER Impressions 05/11/2020 10:50 AM FACILITY DESIGNER Impression: 8 mm pleural-based pulmonary nodule in [...] 10:50 AM . Narrative 05/11/2020 10:50 AM FACILITY DESIGNER Procedure Information DATE: 05/11/2020 8:17 AM EXAMINATION: [...] Recently Relevant to Health Maintenance Care Teams Shipmaster Relationship Specialty Start Date End Date Jl Jordan MD [address] [address] PCP - General 10/28/17 Real Montalvo MD [address] [facility] [place] [address] Resident Rheumatology 10/14/22 Hamilton Quintanilla MD [address] [place] [phone] Web Content Specialist Rheumatology 10/14/22
--- OUTSIDE RECORDS SUMMARY | 2024-05-24 18:01 | XMS_ITS | Encounter Summary ---
Author Organization [facility] Address [address] [facility] [place] [address] Care Team Providers Care Wildlife Refuge Manager Name Role Phone Jl Jordan MD Primary Care Provider [phone] Real Montalvo MD Unavailable [phone] Hamilton Quintanilla MD Unavailable Encounter Details Date Type Department Care Team (Late st Contact Info) Description 04/25/2022 Telephone [facility] Pul[facility], Critical Care and Sleep Medicine [address] [facility], [place] [phone] Mustapha Easton MD [address] [facility] 2L DIV OF PULMONARY/[place] [address] Social History Tobacco Use Types [...] be on discs. They were done at [place], [place] [phone]. He scheduled an appt w/ Dr. Easton, 08/16/2022, his first available. Based on what Dr. Easton sees on the recent scans, Mr. Burton stated Dr. Easton may want to see him SOONER. If Mr. Burton needs new scans ordered by Dr. Easton, please advise patient and call. Have Dr. Easton call. Thanks. 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
[2024-05-24 18:26] LABS: Basophils Absolute Auto 0.1 K/mm3 (0.0-0.1); Basophils Percent Auto 0.8 % (0.2-1.2); Eosinophils Absolute Auto 0.6 K/mm3 (0-0.3); Eosinophils Percent Auto 6.4 % (0-4.4); Hematocrit 40.5 % (42.0-52.0); Hemoglobin 13.7 g/dL (14.0-18.0); Immature Granulocyte Absolute 0.02 K/mm3 (0.00-0.031); Immature Granulocyte Percent A 0.2 % (0-0.5); Lymphocytes Absolute Auto 2.19 K/mm3 (0.9-3.2); Lymphocytes Percent Auto 25.1 % (18.3-44.2); Mean Corpuscular HGB Conc 33.8 g/dl (32-36); Mean Corpuscular Hemoglobin 30.6 pg (26-34); Mean Corpuscular Volume 90.6 fl (80-100); Mean Platelet Volume 9.8 fl (7.4-10.4); Monocytes Absolute Auto 0.8 K/mm3 (0.1-0.6); Monocytes Percent Auto 9.2 % (2.6-8.5); Neutrophils Absolute Auto 5.1 K/mm3 (1.3-6.7); Neutrophils Percent Auto 58.3 % (45.5-73.1); Platelet Count Result 323 k/mm3 (150-375); Red Blood Count 4.47 M/mm3 (4.6-6.20); Red Cell Distribution Width 12.7 % (11.5-14.5); White Blood Count 8.7 K/mm3 (4.5-10.0)
[2024-05-24 18:27] LABS: Add Urine Microscopic? YES; Appearance Urine Clear (Clear); Bacteria Urine None Seen /hpf; Bilirubin Urine Negative (Negative); Blood Urine 3+ (Negative); Color Urine Yellow (Yellow); Glucose Urine UA Negative (Negative); Ketones Urine Negative (Negative); Leukocyte Esterase Ur Negative LEU/UL (Negative); Nitrate Urine Negative (Negative); Non Pathogenic Casts 0-2; Protein Urine Negative (Negative); RBC Urine >100 /hpf (0-2); Specific Grav Ur 1.011 (1.001-1.035); Squamous Epithelial Cell Urine None Seen /hpf (Few); Urobilinogen Urine 0.2 mg/dL (<2.0); WBC Urine 0-5 /hpf (0-3)
[2024-05-24 18:44] LABS: INR 0.9; Prothrombin Time 12.6 Seconds (11.1-14.7)
[2024-05-24 18:45] LABS: Partial Thromboplastin Time 28.8 Seconds (22.3-36.8)
[2024-05-24 18:53] LABS: Alanine Aminotransferase 25 U/L (6-50); Albumin Level 3.7 g/dL (3.5-5.1); Alkaline Phosphatase 99 U/L (38-126); Anion Gap 8 mmol/L (4-12); Aspartate Amino Transferase 34 U/L (17-59); Bilirubin,Total 0.5 mg/dL (0.2-1.3); Blood Urea Nitrogen 15 mg/dL (9-20); Calcium 9.2 mg/dL (8.4-10.2); Carbon Dioxide 28 mmol/L (22-30); Chloride 102 mmol/L (98-107); Estimated CRCL calculation 75 ml/min; Estimated Glomerular Filt Rate > 60; Glucose 111 mg/dL (65-110); Potassium 4.4 mmol/L (3.4-5.0); Sodium 138 mmol/L (137-145)
[2024-05-24 19:23] VITALS: BP 116/78; PULSE 68; RESP 16; O2SAT 97
== END 2024-05-24 19:27 | disposition home or self-care (01) ==
PROVIDERS: Emergency Provider Emergency Medicine; PCP Emergency Medicine
DX: R31.9 Hematuria, unspecified (principal); K21.9 Gastro-esophageal reflux disease without esophagitis; M06.9 Rheumatoid arthritis, unspecified
CPT/HCPCS: 36415; 74176; 80053; 81001; 85025; 85610; 85730; 99284